=== PATIENT | female | born 1945 | race Caucasian/White ===

== ENCOUNTER → 2018-06-10 09:11 | Outpatient (CLI) | payer MEDICARE, SELFPAY ==
--- NOTE | 2018-06-10 | DI.MG.S_ITS ---
BILATERAL DIGITAL SCREENING MAMMOGRAM 3D/2D WITH CAD: 06/10/2018 CLINICAL: Routine screening. Family history of breast cancer. Comparison is made to exams dated: 04/24/2017 mammogram, 04/19/2017 mammogram, and 04/18/2016 mammogram - [facility]. There are scattered fibroglandular elements in both breasts. Current study was also evaluated with a Computer Aided Detection (CAD) system. No significant masses, calcifications, or other findings are seen in either breast. There has been no significant interval change. IMPRESSION: NEGATIVE There is no mammographic evidence of malignancy. A 1 year screening mammogram is recommended. This exam was interpreted at Station ID: [id number]. NOTE: For mammograms, a report in lay terms will be sent to the patient. Approximately 15% of breast malignancies will not be visualized mammographically. In the management of a palpable breast mass, a negative mammogram must not discourage biopsy of a clinically suspicious lesion. Electronically Signed By: Danyel warren/barbie:06/10/2018 23:01:19 letter sent: Normal Exam ACR BI-RADS Category 1: Negative 3341F
== END ==
PROVIDERS: PCP Family Medicine; Visit Provider Family Medicine
DX: Z12.31 Encounter for screening mammogram for malignant neoplasm of breast (principal); Z80.3 Family history of malignant neoplasm of breast
CPT/HCPCS: 77063; 77067

== ENCOUNTER → 2018-07-16 06:57 | Outpatient (CLI) | payer MEDICARE, SELFPAY ==
[2018-07-16 07:37] LABS: Add Manual Diff / Slide Review NO; Eosinophils Percent Auto 2.8 % (2-4); Hematocrit 41.9 % (36-46); Hemoglobin 14.5 g/dL (12.0-16.0); Lymphocytes Percent Auto 24.5 % (25-40); Mean Corpuscular HGB Conc 34.6 % (30-36); Mean Corpuscular Hemoglobin 32.6 PG (26-34); Mean Corpuscular Volume 94.3 fL (80-100); Monocytes Percent Auto 7.7 % (3-14); Neutrophils Absolute Auto 2700 /uL (3000-5900); Platelet Count 212 X10^3/uL (150-400); Red Blood Cell Count 4.45 X10^6/uL (4.0-5.2); Red Cell Distribution Width 13.4 % (11.6-14.8); White Blood Cell Count 4.2 X10^3/uL (4.5-11.0)
[2018-07-16 07:48] LABS: Alanine Aminotransferase 26 IU/L (9-52); Albumin 4.6 g/dL (3.5-5.0); Albumin Globulin Ratio 1.6 (1.0-2.8); Alkaline Phosphatase 43 U/L (38-126); Aspartate Aminotransferase 26 IU/L (14-36); Bilirubin Total 0.7 mg/dL (0.2-1.3); Blood Urea Nitrogen 14 mg/dL (7-17); Calcium 9.4 mg/dL (8.4-10.2); Carbon Dioxide 32 mmol/L (22-32); Chloride 106 mmol/L (98-107); Cholesterol 247 mg/dL (140-199); Estimated Glomerular Filt Rate > 60.0 mL/min (>60); Globulin 2.9 g/dL (1.7-4.1); Glucose 100 mg/dL (80-110); HDL Cholesterol 61 mg/dL (40-60); HEMOLYSIS < 15 (0-50); LDL Cholesterol Calculated 172 mg/dL (<100); Potassium 4.6 mmol/L (3.4-5.1); Sodium 147 mmol/L (137-145); Total Protein 7.5 g/dL (6.3-8.2); Triglycerides 69 mg/dL (35-150)
[2018-07-16 08:15] LABS: TSH w/ Reflex to FT4 2.78 uIU/mL (0.47-4.68)
== END ==
PROVIDERS: PCP Family Medicine; Visit Provider Family Medicine
DX: E78.00 Pure hypercholesterolemia, unspecified (principal)
CPT/HCPCS: 36415; 80053; 80061; 84443; 85025

== ENCOUNTER → 2018-07-25 09:55 | Outpatient (CLI) | payer MEDICARE, SELFPAY ==
--- NOTE | 2018-07-25 09:58 | DI.RAD.S_ITS ---
PROCEDURE: XR HAND RT MIN 3V INDICATIONS: swollen joint TECHNIQUE: 3 views of the hand(s) acquired. COMPARISON: None. FINDINGS: Bones: No fractures or dislocations. Carpal bones are normally aligned. No suspicious bony lesions. There is moderate to moderately severe degenerative osteophytic change at the distal interphalangeal joints and the middle interphalangeal joints to a lesser degree. Degenerative osteoarthritis also is prominent at the base of the first metacarpal and at the distal scaphoid as it articulates against the proximal margin of the trapezium. Soft tissues: No suspicious soft tissue calcifications. IMPRESSION: Moderately severe degenerative osteoarthritis as discussed without erosive arthritis or trauma. Dictated by: Brian Wheeler M.D. on 07/25/2018 at 11:45 Approved by: Brian Wheeler M.D. on 07/25/2018 at 11:46
--- NOTE | 2018-07-25 09:58 | DI.RAD.S_ITS ---
PROCEDURE: XR HAND LT MIN 3V INDICATIONS: swollen joint TECHNIQUE: 3 views of the hand(s) acquired. COMPARISON: [facility], CR, XR HAND RT MIN 3V, 07/25/2018, 9:59. FINDINGS: Bones: No fractures or dislocations. Carpal bones are normally aligned. No suspicious bony lesions. The degenerative osteoarthritis present at the left hand is slightly less than that on the right, with only moderate interphalangeal degenerative osteoarthritis of the degeneration at the base of the first metacarpal is moderately severe. Moderate osteoarthritis also can be seen at the distal scaphoid articulation against the JARRETT of the trapezium. Soft tissues: No suspicious soft tissue calcifications. IMPRESSION: Left hand osteoarthritis is less than that seen on the right, and is moderately severe only at the base of the first metacarpal. No trauma or an erosive arthritis is found. Dictated by: Brian Wheeler M.D. on 07/25/2018 at 11:46 Approved by: Brian Wheeler M.D. on 07/25/2018 at 11:47
== END ==
PROVIDERS: PCP Family Medicine; Visit Provider Family Medicine
DX: M25.442 Effusion, left hand (principal); M25.441 Effusion, right hand; M19.042 Primary osteoarthritis, left hand; M19.041 Primary osteoarthritis, right hand
CPT/HCPCS: 73130

== ENCOUNTER → 2018-09-12 16:02 | Outpatient (CLI) | payer MEDICARE, SELFPAY ==
[2018-09-12 16:28] LABS: Add Manual Diff / Slide Review NO; Eosinophils Percent Auto 2.1 % (2-4); Hematocrit 40.4 % (36-46); Hemoglobin 13.8 g/dL (12.0-16.0); Lymphocytes Percent Auto 25.4 % (25-40); Mean Corpuscular HGB Conc 34.2 % (30-36); Mean Corpuscular Volume 93.5 fL (80-100); Monocytes Percent Auto 8.6 % (3-14); Neutrophils Absolute Auto 4000 /uL (1500-7000); Neutrophils Percent Auto 62.9 % (50-75); Platelet Count 247 X10^3/uL (150-400); Red Blood Cell Count 4.32 X10^6/uL (4.0-5.2); Red Cell Distribution Width 12.9 % (11.6-14.8); White Blood Cell Count 6.3 X10^3/uL (4.5-11.0)
== END ==
PROVIDERS: PCP Family Medicine; Visit Provider Family Medicine
DX: D72.819 Decreased white blood cell count, unspecified (principal)
CPT/HCPCS: 36415; 85025

== ENCOUNTER → 2019-05-01 11:42 | Outpatient (CLI) | payer MEDICARE, SELFPAY ==
[2019-05-01 12:11] LABS: Add Manual Diff / Slide Review NO; Basophils Absolute Auto 0 /uL (0-100); Basophils Percent Auto 0.8 % (0-2); Eosinophils Absolute Auto 100 /uL (0-450); Eosinophils Percent Auto 1.6 % (2-4); Hematocrit 40.6 % (36-46); Hemoglobin 13.8 g/dL (12.0-16.0); Lymphocytes Absolute Auto 1100 /uL (1100-4500); Lymphocytes Percent Auto 18.8 % (25-40); Mean Corpuscular HGB Conc 34.1 % (30-36); Mean Corpuscular Hemoglobin 31.6 PG (26-34); Mean Corpuscular Volume 92.8 fL (80-100); Monocytes Absolute Auto 400 /uL (0-900); Monocytes Percent Auto 7.5 % (3-14); Neutrophils Absolute Auto 4000 /uL (1500-7000); Neutrophils Percent Auto 71.3 % (50-75); Platelet Count 219 X10^3/uL (150-400); Red Blood Cell Count 4.38 X10^6/uL (4.0-5.2); Red Cell Distribution Width 13.8 % (11.6-14.8); White Blood Cell Count 5.6 X10^3/uL (4.5-11.0)
[2019-05-01 12:51] LABS: Alanine Aminotransferase 15 IU/L (9-52); Albumin 4.4 g/dL (3.5-5.0); Albumin Globulin Ratio 1.6 (1.0-2.8); Alkaline Phosphatase 60 U/L (38-126); Aspartate Aminotransferase 23 IU/L (14-36); Bilirubin Total 0.5 mg/dL (0.2-1.3); Blood Urea Nitrogen 12 mg/dL (7-17); Calcium 9.7 mg/dL (8.4-10.2); Carbon Dioxide 29 mmol/L (22-32); Chloride 103 mmol/L (98-107); Estimated Glomerular Filt Rate > 60.0 mL/min (>60); Globulin 2.7 g/dL (1.7-4.1); Glucose 73 mg/dL (80-110); HEMOLYSIS < 15 (0-50); Potassium 4.5 mmol/L (3.4-5.1); Sodium 140 mmol/L (137-145); Total Protein 7.1 g/dL (6.3-8.2)
== END ==
PROVIDERS: PCP Family Medicine; Visit Provider Physician Assistant
DX: L30.1 Dyshidrosis [pompholyx] (principal)
CPT/HCPCS: 36415; 80053; 85025

== ENCOUNTER → 2019-06-05 13:26 | Outpatient (CLI) | payer MEDICARE, SELFPAY ==
[2019-06-05 15:10] LABS: Add Manual Diff / Slide Review NO; Basophils Absolute Auto 0 /uL (0-100); Basophils Percent Auto 0.5 % (0-2); Eosinophils Absolute Auto 100 /uL (0-450); Eosinophils Percent Auto 1.8 % (2-4); Hematocrit 40.1 % (36-46); Hemoglobin 13.8 g/dL (12.0-16.0); Lymphocytes Absolute Auto 1200 /uL (1100-4500); Lymphocytes Percent Auto 19.5 % (25-40); Mean Corpuscular HGB Conc 34.5 % (30-36); Mean Corpuscular Hemoglobin 32.3 PG (26-34); Mean Corpuscular Volume 93.7 fL (80-100); Monocytes Absolute Auto 500 /uL (0-900); Monocytes Percent Auto 7.6 % (3-14); Neutrophils Absolute Auto 4200 /uL (1500-7000); Neutrophils Percent Auto 70.6 % (50-75); Platelet Count 241 X10^3/uL (150-400); Red Blood Cell Count 4.28 X10^6/uL (4.0-5.2); Red Cell Distribution Width 13.9 % (11.6-14.8); White Blood Cell Count 5.9 X10^3/uL (4.5-11.0)
[2019-06-05 15:34] LABS: Alanine Aminotransferase 21 IU/L (9-52); Albumin 4.3 g/dL (3.5-5.0); Albumin Globulin Ratio 1.5 (1.0-2.8); Alkaline Phosphatase 57 U/L (38-126); Aspartate Aminotransferase 28 IU/L (14-36); BUN Creatinine Ratio 31.7 (6-22); Bilirubin Total 0.5 mg/dL (0.2-1.3); Blood Urea Nitrogen 19 mg/dL (7-17); Calcium 9.1 mg/dL (8.4-10.2); Carbon Dioxide 29 mmol/L (22-32); Chloride 102 mmol/L (98-107); Estimated Glomerular Filt Rate > 60.0 mL/min (>60); Globulin 2.9 g/dL (1.7-4.1); Glucose 92 mg/dL (80-110); HEMOLYSIS < 15 (0-50); Potassium 4.4 mmol/L (3.4-5.1); Sodium 140 mmol/L (137-145); Total Protein 7.2 g/dL (6.3-8.2)
== END ==
PROVIDERS: PCP Family Medicine; Visit Provider Physician Assistant
DX: L30.1 Dyshidrosis [pompholyx] (principal)
CPT/HCPCS: 36415; 80053; 85025

== ENCOUNTER → 2019-06-18 09:11 | Outpatient (CLI) | payer MEDICARE, SELFPAY ==
--- NOTE | 2019-06-18 | DI.MG.S_ITS ---
BILATERAL DIGITAL SCREENING MAMMOGRAM 3D/2D WITH CAD: 06/18/2019 CLINICAL: Routine screening. Family history of breast cancer. Comparison is made to exams dated: 06/10/2018 mammogram, 04/24/2017 mammogram, 04/19/2017 mammogram, and 04/18/2016 mammogram - [facility]. There are scattered fibroglandular elements in both breasts. Current study was also evaluated with a Computer Aided Detection (CAD) system. No significant masses, calcifications, or other findings are seen in either breast. There has been no significant interval change. IMPRESSION: NEGATIVE There is no mammographic evidence of malignancy. A 1 year screening mammogram is recommended. This exam was interpreted at Station ID: [id number]. NOTE: For mammograms, a report in lay terms will be sent to the patient. Approximately 15% of breast malignancies will not be visualized mammographically. In the management of a palpable breast mass, a negative mammogram must not discourage biopsy of a clinically suspicious lesion. Electronically Signed By: Karen solorio/barbie:06/18/2019 10:00:50 letter sent: Normal Exam ACR BI-RADS Category 1: Negative 3341F
== END ==
PROVIDERS: PCP Family Medicine; Visit Provider Family Medicine
DX: Z12.31 Encounter for screening mammogram for malignant neoplasm of breast (principal); Z80.3 Family history of malignant neoplasm of breast
CPT/HCPCS: 77063; 77067

== ENCOUNTER → 2019-09-04 09:23 | Outpatient (CLI) | payer MEDICARE, SELFPAY ==
[2019-09-04 10:42] LABS: Add Manual Diff / Slide Review NO; Basophils Absolute Auto 0 /uL (0-100); Basophils Percent Auto 0.9 % (0-2); Eosinophils Absolute Auto 200 /uL (0-450); Eosinophils Percent Auto 3.8 % (2-4); Hematocrit 40.1 % (36-46); Hemoglobin 13.8 g/dL (12.0-16.0); Lymphocytes Absolute Auto 900 /uL (1100-4500); Lymphocytes Percent Auto 22.6 % (25-40); Mean Corpuscular HGB Conc 34.4 % (30-36); Mean Corpuscular Hemoglobin 32.9 PG (26-34); Mean Corpuscular Volume 95.7 fL (80-100); Monocytes Absolute Auto 400 /uL (0-900); Monocytes Percent Auto 9.4 % (3-14); Neutrophils Absolute Auto 2600 /uL (1500-7000); Neutrophils Percent Auto 63.3 % (50-75); Platelet Count 225 X10^3/uL (150-400); Red Blood Cell Count 4.19 X10^6/uL (4.0-5.2); Red Cell Distribution Width 14.5 % (11.6-14.8)
[2019-09-04 11:04] LABS: Alanine Aminotransferase 34 IU/L (<35); Albumin 4.2 g/dL (3.5-5.0); Albumin Globulin Ratio 1.6 (1.0-2.8); Alkaline Phosphatase 53 U/L (38-126); Aspartate Aminotransferase 38 IU/L (14-36); BUN Creatinine Ratio 25.7 (6-22); Bilirubin Total 0.7 mg/dL (0.2-1.3); Blood Urea Nitrogen 18 mg/dL (7-17); Calcium 8.8 mg/dL (8.4-10.2); Carbon Dioxide 29 mmol/L (22-32); Chloride 105 mmol/L (98-107); Estimated Glomerular Filt Rate > 60.0 mL/min (>60); Globulin 2.7 g/dL (1.7-4.1); Glucose 92 mg/dL (80-110); HEMOLYSIS < 15 (0-50); Potassium 4.2 mmol/L (3.4-5.1); Sodium 140 mmol/L (137-145); Total Protein 6.9 g/dL (6.3-8.2)
== END ==
PROVIDERS: PCP Family Medicine; Visit Provider Physician Assistant
DX: L30.1 Dyshidrosis [pompholyx] (principal)
CPT/HCPCS: 36415; 80053; 85025

== ENCOUNTER → 2020-05-21 08:14 | Outpatient (CLI) | payer MEDICARE, SELFPAY ==
[2020-05-22 09:14] LABS: COVID19 Sendout Not Detected (Not Detect)
== END ==
PROVIDERS: PCP Family Medicine; Visit Provider Physician Assistant
DX: Z11.59 Encounter for screening for other viral diseases (principal)
CPT/HCPCS: 87635

== ENCOUNTER → 2020-06-21 11:51 | Outpatient (CLI) | payer MEDICARE, SELFPAY ==
--- NOTE | 2020-06-21 | DI.MG.S_ITS ---
BILATERAL DIGITAL SCREENING MAMMOGRAM 3D/2D WITH CAD: 06/21/2020 CLINICAL: Routine screening. Family history of breast cancer. Comparison is made to exams dated: 06/18/2019 mammogram, 06/10/2018 mammogram, 04/24/2017 mammogram, 04/19/2017 mammogram, and 04/18/2016 mammogram - [facility]. There are scattered fibroglandular elements in both breasts. Current study was also evaluated with a Computer Aided Detection (CAD) system. No significant masses, calcifications, or other findings are seen in either breast. There has been no significant interval change. IMPRESSION: NEGATIVE There is no mammographic evidence of malignancy. A 1 year screening mammogram is recommended. This exam was interpreted at Station ID: [id number]. NOTE: For mammograms, a report in lay terms will be sent to the patient. Approximately 15% of breast malignancies will not be visualized mammographically. In the management of a palpable breast mass, a negative mammogram must not discourage biopsy of a clinically suspicious lesion. Electronically Signed By: Tarun hart/barbie:06/21/2020 13:05:20 letter sent: Normal Exam ACR BI-RADS Category 1: Negative 3341F
== END ==
PROVIDERS: PCP Family Medicine; Referring Provider Family Medicine; Visit Provider Family Medicine
DX: Z12.31 Encounter for screening mammogram for malignant neoplasm of breast (principal); Z80.3 Family history of malignant neoplasm of breast
CPT/HCPCS: 77063; 77067

== ENCOUNTER → 2020-08-02 07:14 | Outpatient (CLI) | payer MEDICARE, SELFPAY ==
[2020-08-02 09:04] LABS: Alanine Aminotransferase 16 IU/L (<35); Albumin 4.1 g/dL (3.5-5.0); Albumin Globulin Ratio 1.4 (1.0-2.8); Alkaline Phosphatase 54 U/L (38-126); Aspartate Aminotransferase 28 IU/L (14-36); Bilirubin Total 0.8 mg/dL (0.2-1.3); Blood Urea Nitrogen 19 mg/dL (7-17); Carbon Dioxide 31 mmol/L (22-32); Chloride 103 mmol/L (98-107); Cholesterol 202 mg/dL (140-199); Estimated Glomerular Filt Rate > 60.0 mL/min (>60); Globulin 2.9 g/dL (1.7-4.1); Glucose 102 mg/dL (80-110); HDL Cholesterol 58 mg/dL (40-60); HEMOLYSIS < 15 (0-50); LDL Cholesterol Calculated 131 mg/dL (<100); Sodium 138 mmol/L (137-145); Triglycerides 63 mg/dL (35-150)
== END ==
PROVIDERS: PCP Family Medicine; Referring Provider Family Medicine; Visit Provider Family Medicine
DX: E78.00 Pure hypercholesterolemia, unspecified (principal)
CPT/HCPCS: 36415; 80053; 80061

== ENCOUNTER → 2020-10-07 13:07 | Outpatient (CLI) | payer MEDICARE, SELFPAY ==
[2020-10-07 14:39] LABS: COVID19 -Nasal RAPID Negative (Negative)
== END ==
PROVIDERS: PCP Family Medicine; Visit Provider Surgery
DX: Z20.822 Contact with and (suspected) exposure to COVID-19 (principal)
CPT/HCPCS: 87635; C9803

== ENCOUNTER 2020-10-10 09:00 | Day surgery (SDC) | payer MEDICARE, SELFPAY ==
[2020-10-10 09:44] VITALS: BP 131/86; PULSE 78; RESP 16; TEMP 36.8; O2SAT 98; BMI 29.0
[2020-10-10] MEDS: LACTATED RINGERS 1,000 ML 200 ML IV (09:54)
--- NOTE | 2020-10-10 11:11 | PM.HP.1 ---
History of Present Illness History of Present Illness Date Patient Seen: 10/10/20 Time Patient Seen: 11:11 Chief complaint: SCREENING COLONOSCOPY Narrative: The patient presents for colorectal sreening. She had previous colonoscopy 6 years ago that demonstrated 2 benign polyps which were removed.. No personal or family history of colon cancer. On further history denies any recent gastrointestinal symptoms. No nausea, vomiting, abdominal pain, loss of appetite, unexplained weight loss, change in bowel habits, diarrhea, constipation, melena, hematochezia, or bright red blood per rectum. Patient History Medical History Ankle pain (~1999) Carpal tunnel syndrome (~2013) Chicken pox (~1950) Colon polyps (~2014) Depression (~1998) Eczema (~2007) Endometriosis Hearing deficit Heel spur (~1984) Hemorrhoid (~1964) History of pre-eclampsia Osteoarthritis (~1989) Vision disorder Surgical History Anesthesia History of arthroplasty History of carpal tunnel repair (~2013) History of cataract removal with insertion of prosthetic lens (~2014) Small bowel obstruction (~1979) Status post hysterectomy (~1979) Status post LASIK surgery (~1989) Status post tonsillectomy and adenoidectomy (~1967) Family & Social History Family History Child Age: 50 Diabetes mellitus Hypertension Obesity Father Cancer High cholesterol Hypertension Alcoholism Mother Cancer Sister Age: 63 Diabetes mellitus Obesity Hypertension Social History: household members spouse Tobacco & Substance use: Smoking Status Never smoker alcohol intake never Substance Use Type does not use Meds Home Medications and Allergies Home Medications Medication Instructions Recorded Confirmed Type GLUCOSAMINE/CHONDROITIN SULF A 1 cap PO Q DAY #0 07/06/16 10/10/20 History cholecalciferol (vitamin D3) 10 1,200 unit PO DAILY cap 07/25/18 10/10/20 History mcg (400 unit) capsule acyclovir 800 mg PO TID 10/10/20 10/10/20 History Allergies Allergy/AdvReac Type Severity Reaction Status Date / Time zolpidem [From Ambien] AdvReac nightmares Verified 10/10/20 09:37 Review of Systems Review of Systems Narrative: A 10 point review of systems is negative except as noted in the HPI Exam Vital Signs (past 8 hours): - 10/10/20 09:44 Temperature 98.2 F Pulse Rate 78 Respiratory Rate 16 Blood Pressure 131/86 Pulse Oximetry 98 Oxygen Delivery Method Room Air Narrative Exam Narrative: General-no acute distress, well nourished elderly female HEENT-moist mucous membranes, no scleral icterus Neck-supple, no lymphadenopathy Chest- non labored respirations, clear to auscultation bilaterally Cardiac-regular rate no peripheral edema Abdomen-soft, nontender, non distended Extremities-warm, well perfused Neurological-alert and oriented, no focal deficits Assessment & Plan Assessment & Plan narrative: The patient requires colorectal screening and colonoscopy is recommended. Technical details were discussed. Risks, benefits, alternatives explained. Risks including but not limited to myocardial infarction, aspiration, bleeding, pain, missed lesion, incomplete examination, need for further radiographic studies, colonic perforation, and need for major abdominal surgery were discussed. All questions were answered to their satisfaction, and they are in agreement with this plan.
[2020-10-10] MEDS: MIDAZOLAM 5 MG/5 ML VIAL IV (11:43)
[2020-10-10] MEDS: fentaNYL 250 MCG/5 ML INJ IV (11:44)
--- NOTE | 2020-10-10 11:57 | PM.OP.ENDO ---
Operative Date/Time/Diagnoses Date of procedure: 10/10/20 Time of procedure: 11:57 Pre-op diagnosis: personal history of colonic polyps Post-op diagnosis: same Procedure & Clinicians Study performed: colonoscopy Same procedure as scheduled: Yes Indications: 75 F personal history of colonic polyps Surgeon: Sunday Bullock Procedure Notes Procedure in detail: Medications: Conscious sedation using 6mg IV midazolam and 350mcg IV of fentanyl The history and physical was performed/updated and the patient is ASA class is 2. The procedure was discussed in detail with the patient. Potential risks complications including infection, bleeding, missed diagnosis, perforation, need for surgery, and were explained. Their questions were answered and informed consent was obtained. Patient was brought to the procedure room and placed standard monitoring equipment. The patient's vital signs were monitored continuously throughout the entire procedure. Prior to starting time-out was performed. The patient was placed in the left lateral recumbent position. Procedural sedation was administered. Examination began with a thorough inspection of the perianal area there was no evidence of fissures, fistulae, external hemorrhoids or cutaneous malignancy. The colonoscopy scope was then placed into the anal canal and was advanced to the cecum, which was identified by the ileocecal valve, the appendiceal orifice and the confluence of the taenia. The scope was then slowly withdrawn examining colon thoroughly in all directions, irrigating it of any residual stool. No masses or polyps The patient tolerated the procedure well. They will be discharged once criteria are met. The prep was of good/excellent quality. The withdrawl time was 6 minutes. The sedation time was 39 minutes. Specimen(s): none sent Complications: none Impression: Normal colonoscopy Post-procedure Disposition: same day surgery
[2020-10-10 12:00] VITALS: BP 132/68; PULSE 74; RESP 11; TEMP 36.6; O2SAT 95
[2020-10-10 12:05] VITALS: BP 128/66; PULSE 74; RESP 17; O2SAT 97
[2020-10-10 12:10] VITALS: BP 112/62; PULSE 90; RESP 15; O2SAT 97
[2020-10-10 12:15] VITALS: BP 130/81; PULSE 78; RESP 17; TEMP 36.6; O2SAT 96
[2020-10-10 12:40] VITALS: BP 134/75; PULSE 70; RESP 17; TEMP 36.7; O2SAT 96
== END 2020-10-10 12:50 | disposition home or self-care (01) ==
PROVIDERS: PCP Family Medicine; Referring Provider Surgery; Visit Provider Surgery
PROC: 0DJD8ZZ Inspection of Lower Intestinal Tract, Via Natural or Artificial Opening Endoscopic (ICD-10-PCS; CPT 45378; principal; 2020-10-10 10:00)
DX: Z12.11 Encounter for screening for malignant neoplasm of colon (principal); Z86.010 Personal history of colon polyps
CPT/HCPCS: G0105; 99152; 99153; J2250; J3010

== ENCOUNTER → 2021-02-21 07:05 | Outpatient (CLI) | payer MEDICARE, SELFPAY ==
[2021-02-21 08:30] LABS: Alanine Aminotransferase 16 IU/L (<35); Albumin 3.8 g/dL (3.5-5.0); Albumin Globulin Ratio 1.5 (1.0-2.8); Alkaline Phosphatase 56 U/L (38-126); Aspartate Aminotransferase 24 IU/L (14-36); BUN Creatinine Ratio 16.7 (6-22); Bilirubin Total 0.6 mg/dL (0.2-1.3); Blood Urea Nitrogen 11 mg/dL (7-17); Calcium 9.1 mg/dL (8.4-10.2); Carbon Dioxide 28 mmol/L (22-32); Chloride 106 mmol/L (98-107); Cholesterol 193 mg/dL (140-199); Estimated Glomerular Filt Rate > 60.0 mL/min (>60); Globulin 2.5 g/dL (1.7-4.1); Glucose 93 mg/dL (80-110); HDL Cholesterol 63 mg/dL (40-60); HEMOLYSIS < 15 (0-50); LDL Cholesterol Calculated 120 mg/dL (<100); Potassium 4.6 mmol/L (3.4-5.1); Sodium 140 mmol/L (137-145); Total Protein 6.3 g/dL (6.3-8.2); Triglycerides 51 mg/dL (35-150)
== END ==
PROVIDERS: PCP Family Medicine; Referring Provider Family Medicine; Visit Provider Family Medicine
DX: E66.3 Overweight (principal); E78.00 Pure hypercholesterolemia, unspecified; R73.01 Impaired fasting glucose
CPT/HCPCS: 36415; 80053; 80061

== ENCOUNTER → 2021-07-08 11:20 | Outpatient (CLI) | payer MEDICARE, SELFPAY ==
--- NOTE | 2021-07-08 | DI.MG.S_ITS ---
BILATERAL DIGITAL SCREENING MAMMOGRAM 3D/2D WITH CAD: 07/08/2021 CLINICAL: Routine screening. Family history of breast cancer. Comparison is made to exams dated: 06/21/2020 mammogram, 06/18/2019 mammogram, and 06/10/2018 mammogram - [facility]. There are scattered fibroglandular elements in both breasts. Current study was also evaluated with a Computer Aided Detection (CAD) system. No significant masses, calcifications, or other findings are seen in either breast. There has been no significant interval change. IMPRESSION: NEGATIVE There is no mammographic evidence of malignancy. A 1 year screening mammogram is recommended. This exam was interpreted at Station ID: [id number]. NOTE: For mammograms, a report in lay terms will be sent to the patient. Approximately 15% of breast malignancies will not be visualized mammographically. In the management of a palpable breast mass, a negative mammogram must not discourage biopsy of a clinically suspicious lesion. Electronically Signed By: Jacek Zacarias M.D., jr/barbie:07/10/2021 08:11:41 letter sent: Normal Exam ACR BI-RADS Category 1: Negative 3341F
== END ==
PROVIDERS: PCP Family Medicine; Referring Provider Family Medicine; Visit Provider Family Medicine
DX: Z12.31 Encounter for screening mammogram for malignant neoplasm of breast (principal); Z80.3 Family history of malignant neoplasm of breast
CPT/HCPCS: 77063; 77067

== ENCOUNTER → 2021-10-18 11:35 | Outpatient (CLI) | payer MEDICARE, SELFPAY ==
[2021-10-18 13:09] LABS: Add Manual Diff / Slide Review NO; Basophils Absolute Auto 0 /uL (0-100); Basophils Percent Auto 0.6 % (0-2); Eosinophils Absolute Auto 100 /uL (0-450); Eosinophils Percent Auto 0.8 % (2-4); Hematocrit 39.6 % (36-46); Hemoglobin 13.6 g/dL (12.0-16.0); Lymphocytes Absolute Auto 900 /uL (1100-4500); Lymphocytes Percent Auto 13.5 % (25-40); Mean Corpuscular HGB Conc 34.4 % (30-36); Mean Corpuscular Hemoglobin 32.2 PG (26-34); Mean Corpuscular Volume 93.6 fL (80-100); Monocytes Absolute Auto 300 /uL (0-900); Monocytes Percent Auto 5.2 % (3-14); Neutrophils Absolute Auto 5300 /uL (1500-7000); Neutrophils Percent Auto 79.9 % (50-75); Platelet Count 221 X10^3/uL (150-400); Red Blood Cell Count 4.22 X10^6/uL (4.0-5.2); Red Cell Distribution Width 13.1 % (11.6-14.8); White Blood Cell Count 6.7 X10^3/uL (4.5-11.0)
[2021-10-18 14:02] LABS: TSH w/ Reflex to FT4 0.68 uIU/mL (0.47-4.68)
[2021-10-18 14:19] LABS: Vitamin B12 736 pg/mL (239-931)
[2021-10-19 04:02] LABS: Homocysteine 9.6 umol/L (0.0-19.2)
[2021-10-19 05:02] LABS: RPR Screen Non Reactive (Non Reactive)
[2021-10-20 10:13] LABS: Methylmalonic Acid,Serum 135 nmol/L (0-378)
== END ==
PROVIDERS: PCP Family Medicine; Referring Provider Family Medicine; Visit Provider Family Medicine
DX: G62.9 Polyneuropathy, unspecified (principal); R53.83 Other fatigue
CPT/HCPCS: 36415; 82607; 83090; 83921; 84443; 85025; 86592

== ENCOUNTER → 2021-11-08 11:04 | Outpatient (CLI) | payer MEDICARE, SELFPAY ==
--- NOTE | 2021-11-08 11:05 | DI.MRI.S_ITS ---
PROCEDURE: MR HEAD/BRAIN WO/W CON INDICATIONS: neuropathy/ataxia TECHNIQUE: Noncontrast axial T1 spin echo, axial T2 fast spin echo, sagittal and axial FLAIR, coronal T2 fast spin echo, axial gradient echo, axial diffusion and ADC through the brain. After the administration of contrast, axial and coronal T1 spin echo with fat saturation through the brain. COMPARISON: None. FINDINGS: Image quality: Excellent. CSF spaces: Basal cisterns are patent. No extra-axial fluid collections. Ventricles are normal in size and shape. Brain: No midline shift. No intracranial bleeds or masses. No abnormal intracranial enhancement. There is cerebral volume loss for age. There is periventricular white matter chronic small vessel ischemic change. The brainstem appears normal. Diffusion-weighted images demonstrate no acute ischemic insults. No chronic ischemic insults. Normal intravascular flow voids are present. Skull and face: Calvarial marrow is normal in signal. Orbits appear normal. Note is made of bilateral lens replacements. Sinuses: Sinuses and mastoids appear clear. IMPRESSION: Unremarkable intracranial study for age, with age-appropriate brain parenchymal volume loss and chronic small vessel ischemic change. No findings of acute or subacute infarction can be seen. No masses or abnormal enhancement can be seen. Dictated by: Venkatesh Kendall M.D. on 11/08/2021 at 11:19 Approved by: Venkatesh Kendall M.D. on 11/08/2021 at 11:20
== END ==
PROVIDERS: PCP Family Medicine; Referring Provider Family Medicine; Visit Provider Family Medicine
DX: R27.0 Ataxia, unspecified (principal); G62.9 Polyneuropathy, unspecified
CPT/HCPCS: 70553; A9579

== ENCOUNTER → 2021-12-19 09:53 | Outpatient (CLI) | payer MEDICARE, SELFPAY ==
[2021-12-19 11:47] LABS: COVID19 -Nasal RAPID Negative (Negative)
== END ==
PROVIDERS: PCP Family Medicine; Visit Provider Family Medicine Sleep Medicine
DX: Z20.822 Contact with and (suspected) exposure to COVID-19 (principal)
CPT/HCPCS: 87635; C9803

== ENCOUNTER → 2022-05-17 13:45 | Outpatient (CLI) | payer MEDICARE, SELFPAY ==
[2022-05-17 14:42] LABS: COVID19 -Nasal RAPID Negative (Negative)
--- NOTE | 2022-05-17 19:00 | DI.NM.S_ITS ---
DATE OF SERVICE: 05/17/2022 PROCEDURE PERFORMED: Exercise treadmill stress test without imaging. ORDERING PROVIDER: Dr. Stalin Mccarthy. INDICATIONS: The patient is a 76-year-old female with fatigue, dizziness, and exercise-induced palpitations. FINDINGS: 1. The patient was able to exercise for 4 minutes, 32 seconds on a standard Ric protocol, suggesting mild to moderately reduced exercise capacity with an ROSA M of +14%, achieving 7.0 METs. 2. She had a normal heart rate and blood pressure response to exercise, achieving a maximum heart rate of 150 BPM (103% of her predicted maximum), although motion artifact makes definitive assessment of the heart rate challenging. 3. There was no significant chest discomfort or other anginal symptoms. 4. The resting ECG shows sinus rhythm with normal ST segments. There are no obvious ST-segment shifts or significant arrhythmias with stress although motion artifact makes assessment difficult. She had frequent PACs, briefly in short runs up to four beats and possible isolated PVCs with stress that resolved in recover except for continued rare isolated PACs and PVCs. IMPRESSION: 1. Probable normal exercise treadmill stress test for ischemia, although considerable motion artifact reduces the sensitivity. 2. Mild to moderately reduced exercise capacity without angina with frequent PACs, briefly in short runs up to four beats, and isolated PVCs, but no other complex ectopy. Amisha Lama - VICENTE/julissa/estephania doc#: [id number]/job#: [id number] dd: 05/17/2022 17:22:00 dt: 05/17/2022 18:20:00 DICTATING /COPIES TO: Issac Cullen MD COPIES MNE: TORITO;
== END ==
PROVIDERS: PCP Family Medicine; Referring Provider Family Medicine; Visit Provider Family Medicine
DX: R00.2 Palpitations (principal); R42 Dizziness and giddiness; R53.83 Other fatigue; Z20.822 Contact with and (suspected) exposure to COVID-19
CPT/HCPCS: 87635; 93017

== ENCOUNTER → 2022-08-13 11:08 | Outpatient (CLI) | payer MEDICARE, SELFPAY ==
--- NOTE | 2022-08-13 | DI.MG.S_ITS ---
BILATERAL DIGITAL SCREENING MAMMOGRAM 3D/2D WITH CAD: 08/13/2022 CLINICAL: Routine screening. Family history of breast cancer. Comparison is made to exams dated: 07/08/2021 mammogram, 06/21/2020 mammogram, and 06/18/2019 mammogram - [facility]. There are scattered areas of fibroglandular density in both breasts (category b / 25%-50% glandular tissue). Current study was also evaluated with a Computer Aided Detection (CAD) system. No significant masses, calcifications, or other findings are seen in either breast. There has been no significant interval change. IMPRESSION: NEGATIVE There is no mammographic evidence of malignancy. A 1 year screening mammogram is recommended. Based on the Tyrer Cuzick model (a risk assessment model) the patient's lifetime risk is 3.8% and her 10 year risk is 3.8%. According to the ACR, ACS, and NCCN guidelines, an annual breast MRI exam along with mammogram is recommended if the patient's lifetime risk is 20% or greater. This exam was interpreted at Station ID: [id number]. NOTE: For mammograms, a report in lay terms will be sent to the patient. Approximately 15% of breast malignancies will not be visualized mammographically. In the management of a palpable breast mass, a negative mammogram must not discourage biopsy of a clinically suspicious lesion. Electronically Signed By: Tarun hart/barbie:08/13/2022 12:40:17 letter sent: Normal Exam ACR BI-RADS Category 1: Negative 3341F
== END ==
PROVIDERS: PCP Family Medicine; Referring Provider Family Medicine; Visit Provider Family Medicine
DX: Z12.31 Encounter for screening mammogram for malignant neoplasm of breast (principal); Z80.3 Family history of malignant neoplasm of breast
CPT/HCPCS: 77063; 77067

== ENCOUNTER → 2022-12-25 12:37 | Outpatient (CLI) | payer MEDICARE, SELFPAY ==
--- NOTE | 2022-12-25 12:57 | DI.DEXA.S_ITS ---
Bone Density Report Name: ROMULO ROBERTSON Age: 77 Sex: Female Ethnicity: White Date of : 1945 Indication: postmenopausal; screening for osteoporosis; Referring Provider: DAYNE JUAREZ Study: Bone densitometry was performed. Exam Date: December 25, 2022 Accession number: [id number] Bone Density: Region BMD T-score Z-score Classification AP Spine(L1, L2, L3) 1.004 -0.1 2.3 Normal Femoral Neck (Left) 0.713 -1.2 0.9 Osteopenia Total Hip (Left) 0.926 -0.1 1.7 Normal Total Forearm (Left) 0.576 -0.1 2.5 Normal 1/3 Forearm (Left) 0.643 -0.9 1.8 Normal UD Forearm (Left) 0.450 0.1 2.1 Normal World Health Organization criteria for BMD impression classify patients as: Normal (T-score at or above -1.0), Osteopenia (T-score between -1.0 and -2.5), or Osteoporosis (T-score at or below -2.5). 10-year Fracture Risk(1): Major Osteoporotic Fracture 11% Hip Fracture 1.9% Reported Risk Factors: [place] (), Neck BMD=0.713, BMI=30.0 (1) FRAX(R) Version 3.08. Fracture probability calculated for an untreated patient. Fracture probability may be lower if the patient has received treatment. Previous Exams: -- Region Exam Age BMD T-score BMD Change BMD Change Date g/cm2 vs Baseline vs Previous -- AP Spine (L1-L3) 12/25/2022 77 1.004 -0.1 -0.019 (-1.8%)# -0.019 (-1.8%)# 07/18/2016 70 1.022 0.0 Total Hip(Left) 12/25/2022 77 0.926 -0.1 -0.034 (-3.5%)# -0.034 (-3.5%)# 07/18/2016 70 0.960 0.1 -- *Denotes significance at 95% confidence level, LSC for AP Spine = 0.022 g/cm2, LSC for Total Hip = 0.027 g/cm2 # Denotes dissimilar scan types or analysis methods Impression: The patient has low bone mass, based on the Left Femoral Neck T-score. The patient has an estimated ten-year risk of hip fracture of 1.9% and an estimated ten-year risk of major fracture of 11%, based on the WHO FRAX algorithm. No significant bone loss was observed. Discussion: BONE DENSITY IS LOW AT ONE OR MORE SKELETAL SITES. This patient's lowest T-score is low at one or more skeletal sites. It meets the World Health Organization's (WHO) criteria for ?low bone mass? (T-score between -1.0 and -2.5). The patient's 10-year risk of fracture as calculated by FRAX is less than the threshold where pharmacological therapy is recommended by the National Osteoporosis Foundation (NOF). However, all treatment decisions require clinical judgment and consideration of individual patient factors, including patient preferences, comorbidities, previous drug use, risk factors not captured in the FRAX model (e.g., frailty, falls, vitamin D deficiency, increased bone turnover, interval significant decline in bone density) and possible under or overestimation of fracture risk by FRAX. The patient should follow a healthful lifestyle (good nutrition with adequate calcium and vitamin D, and appropriate weight-bearing exercise). Follow-Up: Consider repeating this study in 2 to 3 years to reassess this patient's status, or sooner if there is some new clinical indication. Reported by: SHAHEED HOWARD M.D. on 12/25/2022 1:07:00 PM.
== END ==
PROVIDERS: PCP Family Medicine; Referring Provider Family Medicine; Visit Provider Family Medicine
DX: Z78.0 Asymptomatic menopausal state (principal); Z13.820 Encounter for screening for osteoporosis; M85.852 Other specified disorders of bone density and structure, left thigh; Z90.710 Acquired absence of both cervix and uterus
CPT/HCPCS: 77080

== ENCOUNTER → 2023-01-30 15:15 | Outpatient (CLI) | payer MEDICARE, SELFPAY ==
--- NOTE | 2023-01-30 15:18 | DI.NM.S_ITS ---
PROCEDURE: NM EXERCISE TREADMILL NON NUC COMPARISON: None. INDICATIONS: Other forms of dyspnea FINDINGS: The patient exercised for 7 minutes and 6 seconds on stage 1 due to safety concerns. 93% of maximum predicted heart rate achieved. Appropriate BP response to exercise (resting BP 132/82mmHg, max BP 160/83mmHg). 4.6METs, ROSA M +40%. No ST changes, no ectopy, and no angina during the study. IMPRESSION: Severely reduced exercise tolerance (4.6METs) with no angina. Dictated by: Samira Hines MD on 01/31/2023 at 17:10 Approved by: Samira Hines MD on 01/31/2023 at 17:12
== END ==
PROVIDERS: PCP Family Medicine; Referring Provider Family Medicine; Visit Provider Family Medicine
DX: R06.09 Other forms of dyspnea (principal)
CPT/HCPCS: 93017

== ENCOUNTER → 2023-03-18 15:21 | Outpatient (CLI) | payer MEDICARE, SELFPAY ==
--- NOTE | 2023-03-18 | DI.RAD.S_ITS ---
PROCEDURE: XR CHEST 2V INDICATIONS: SHORTNESS OF BREATH TECHNIQUE: 2 views of the chest were acquired. COMPARISON: None. FINDINGS: Surgical changes and devices: None. Lungs and pleura: Lungs are clear. No pleural effusions or pneumothorax. Mediastinum: Mediastinal contours are normal. Heart size is normal. Bones and chest wall: No suspicious bony abnormalities. Soft tissues appear unremarkable. IMPRESSION: No acute cardiopulmonary pathology. Dictated by: Santosh Kapoor M.D. on 03/18/2023 at 17:26 Approved by: Santosh Kapoor M.D. on 03/18/2023 at 17:26
== END ==
PROVIDERS: PCP Family Medicine; Referring Provider Family Medicine; Visit Provider Family Medicine
DX: R06.02 Shortness of breath (principal)
CPT/HCPCS: 71046

== ENCOUNTER → 2023-04-18 11:48 | Outpatient (CLI) | payer MEDICARE, SELFPAY ==
--- NOTE | 2023-04-26 14:41 | PM.PFT.1 ---
Pulmonary Function Test Referral & Results Date Patient Seen: 04/18/23 Results: The spirometry demonstrates an FVC of 2.28 L which is 82% of predicted. The FEV1 was measured at 1.67 L which is 81% of predicted. The FEV1/FVC ratio was 73 which is 97% of predicted. Following the administration of bronchodilator there was a 20% improvement in FEF 25-75%. Lung volumes show an SVC of 2.53 L which is 92% of predicted. The diffusing capacity was measured at 18.75 which is 77% of predicted. No hemoglobin value was provided, so no correction for potential anemia could be made, if appropriate. The maximum voluntary ventilation was reduced Interpretation: This study demonstrates mild obstructive lung disease based on reduction FEV1 although FEV1/FVC ratio is relatively preserved. There is evidence of benefit following bronchodilator particularly small airway flow based on improvement in FEF 25-75% as above. Shape a flow volume loop also does support the presence of some degree of obstructive lung disease Diffusing capacity is minimally reduced suggesting the presence of disease at the capillary alveolar level as well Clinical correlation suggested
== END ==
PROVIDERS: PCP Family Medicine; Referring Provider Family Medicine; Visit Provider Family Medicine
DX: R06.02 Shortness of breath (principal); J98.8 Other specified respiratory disorders
CPT/HCPCS: 94060; 94726; 94729

== ENCOUNTER → 2023-08-31 08:46 | Outpatient (CLI) | payer MEDICARE, SELFPAY ==
--- NOTE | 2023-08-31 | DI.MG.S_ITS ---
BILATERAL DIGITAL SCREENING MAMMOGRAM 3D/2D WITH CAD: 08/31/2023 CLINICAL: Routine screening. Family history of breast cancer. Comparison is made to exams dated: 08/13/2022 mammogram, 07/08/2021 mammogram, and 06/21/2020 mammogram - [facility]. There are scattered areas of fibroglandular density in both breasts (category b / 25%-50% glandular tissue). Current study was also evaluated with a Computer Aided Detection (CAD) system. There are benign post operative findings in the left breast. No significant masses, calcifications, or other findings are seen in either breast. There has been no significant interval change. IMPRESSION: BENIGN There is no mammographic evidence of malignancy. A 1 year screening mammogram is recommended. Based on the Tyrer Cuzick model (a risk assessment model) the patient's lifetime risk is 3.1% and her 10 year risk is 0.0%. According to the ACR, ACS, and NCCN guidelines, an annual breast MRI exam along with mammogram is recommended if the patient's lifetime risk is 20% or greater. This exam was interpreted at Station ID: [id number]. NOTE: For mammograms, a report in lay terms will be sent to the patient. Approximately 15% of breast malignancies will not be visualized mammographically. In the management of a palpable breast mass, a negative mammogram must not discourage biopsy of a clinically suspicious lesion. Electronically Signed By: Glen best/barbie:09/02/2023 12:44:54 letter sent: Normal Exam ACR BI-RADS Category 2: Benign Finding(s) 3342F
== END ==
PROVIDERS: PCP Family Medicine; Referring Provider Family Medicine; Visit Provider Family Medicine
DX: Z12.31 Encounter for screening mammogram for malignant neoplasm of breast (principal); Z80.3 Family history of malignant neoplasm of breast
CPT/HCPCS: 77063; 77067

== ENCOUNTER → 2023-11-04 12:46 | Outpatient (CLI) | payer MEDICARE, SELFPAY ==
--- NOTE | 2023-11-04 12:50 | DI.US.S_ITS ---
PROCEDURE: US ABDOMEN LIMITED INDICATIONS: ACUTE PANCREATITIS/ELEVATED LFT'S TECHNIQUE: Real-time scanning was performed of the abdominal and retroperitoneal organs, with image documentation. COMPARISON: None. FINDINGS: Liver: Liver is normal in size and homogeneous in echotexture. Slightly lobulated left hepatic lobe contour is noted. Gallbladder: Multiple nonmobile stones are seen in dependent portion of gallbladder lumen with significant through acoustic shadowing. No gross gallbladder wall thickening or pericholecystic fluid. No sonographic Zimmerman's sign. Biliary ducts: Intrahepatic bile ducts are non-dilated. Extrahepatic bile duct caliber measures 5.7 mm. Normal is 6-7 mm or less in diameter, or 10 mm or less post-cholecystectomy. Pancreas: Atrophic appearing pancreas is seen. Questionable hypoechoic area involving pancreatic body measures 7 x 7 x 4 mm in size is seen. No peripancreatic fluid collection. Miscellaneous: No free abdominal fluid. IMPRESSION: 1. Cholelithiasis without sonographic evidence of acute cholecystitis. No biliary ductal dilatation. 2. Atrophic appearing pancreas with possible small subcentimeter cyst versus IPMN involving pancreatic body as above. Correlation with MRI of abdomen can be done if clinically indicated. Dictated by: Santosh Kapoor M.D. on 11/04/2023 at 16:11 Approved by: Santosh Kapoor M.D. on 11/04/2023 at 16:13
== END ==
PROVIDERS: PCP Family Medicine; Referring Provider Family Medicine; Visit Provider Family Medicine
DX: K85.80 Other acute pancreatitis without necrosis or infection (principal); K80.20 Calculus of gallbladder without cholecystitis without obstruction; R79.89 Other specified abnormal findings of blood chemistry
CPT/HCPCS: 76705

== ENCOUNTER → 2024-09-18 08:02 | Outpatient (CLI) | payer MEDICARE, SELFPAY ==
--- NOTE | 2024-09-18 | DI.MG.S_ITS ---
BILATERAL DIGITAL SCREENING MAMMOGRAM 3D/2D WITH CAD: 09/18/2024 CLINICAL: Routine screening. Family history of breast cancer. Comparison is made to exams dated: 08/31/2023 mammogram, 08/13/2022 mammogram, and 07/08/2021 mammogram - [facility]. There are scattered areas of fibroglandular density (category b / 25%-50% glandular tissue). Current study was also evaluated with a Computer Aided Detection (CAD) system. There are benign post operative findings in both breasts. No significant masses, calcifications, or other findings are seen in either breast. There has been no significant interval change. IMPRESSION: BENIGN There is no mammographic evidence of malignancy. A 1 year screening mammogram is recommended. Based on the Tyrer Cuzick model (a risk assessment model) the patient's lifetime risk is 2.8% and her 10 year risk is 0.0%. According to the ACR, ACS, and NCCN guidelines, an annual breast MRI exam along with mammogram is recommended if the patient's lifetime risk is 20% or greater. This exam was interpreted at Station ID: [id number]. NOTE: For mammograms, a report in lay terms will be sent to the patient. Approximately 15% of breast malignancies will not be visualized mammographically. In the management of a palpable breast mass, a negative mammogram must not discourage biopsy of a clinically suspicious lesion. Electronically Signed By: Adilene Holliday M.D., Ph.D. charisma/[email or web address]:09/18/2024 12:28:29 letter sent: Normal Exam ACR BI-RADS Category 2: Benign
== END ==
PROVIDERS: PCP Family Medicine; Referring Provider Family Medicine; Visit Provider Family Medicine
DX: Z12.31 Encounter for screening mammogram for malignant neoplasm of breast (principal); Z80.3 Family history of malignant neoplasm of breast
CPT/HCPCS: 77063; 77067

== ENCOUNTER → 2024-10-27 06:44 | Outpatient (CLI) | payer MEDICARE, SELFPAY ==
--- NOTE | 2024-10-27 06:46 | DI.US.S_ITS ---
PROCEDURE: US ABDOMEN LIMITED INDICATIONS: CHRONIC LUQ PAIN TECHNIQUE: Real-time scanning was performed of the abdominal and retroperitoneal organs, with image documentation. COMPARISON: [facility], [place], US ABDOMEN LIMITED, 11/04/2023, 13:04. FINDINGS: Liver: Homogeneous echotexture. No evidence of focal mass lesion. No intra hepatic biliary ductal dilatation Gallbladder: Cholelithiasis Common Bile Duct: 5.7 mm. Pancreas: Atrophic pancreas. Normal pancreatic duct. Small nonspecific hypoechoic area in the pancreatic body measures 7 mm in diameter Spleen: Unremarkable IMPRESSION: Stable ultrasound abdomen without change from 11/04/2023. Cholelithiasis, nonspecific hypoechoic pancreatic nodule Approved by: Deepak Ballesteros M.D. on 10/27/2024 at 13:11
== END ==
PROVIDERS: PCP Family Medicine; Referring Provider Family Medicine; Visit Provider Family Medicine
DX: K86.89 Other specified diseases of pancreas (principal); K80.20 Calculus of gallbladder without cholecystitis without obstruction; R10.12 Left upper quadrant pain; G89.29 Other chronic pain
CPT/HCPCS: 76705

== ENCOUNTER 2025-02-16 13:00 | Outpatient (RCR) | payer MEDICARE, SELFPAY ==
--- NOTE | 2024-12-10 15:45 | PT.OIE ---
Current Diagnoses Unspecified abnormalities of gait and mobility (12/10/24) Past Medical History (Last Reviewed 10/03/23 @ 09:22 by Aubrey Sanchez MD) Ankle pain (~1999) Carpal tunnel syndrome (~2013) Carpal tunnel syndrome of left wrist Carpal tunnel syndrome, right Chicken pox (~1950) Colon polyps (~2014) Depression (~1998) Eczema (~2007) Endometriosis Glaucoma Hearing deficit Heel spur (~1984) Hemorrhoid (~1964) History of pre-eclampsia Impaired fasting glucose Lactose intolerance Osteoarthritis (~1989) Overweight (BMI 25.0-29.9) Vision disorder Past Surgical History (Last Reviewed 10/03/23 @ 09:22 by Aubrey Sanchez MD) Anesthesia History of arthroplasty History of carpal tunnel repair (~2013) History of cataract removal with insertion of prosthetic lens (~2014) Small bowel obstruction (~1979) Status post hysterectomy (~1979) Status post LASIK surgery (~1989) Status post tonsillectomy and adenoidectomy (~1967) Visit Care Team Role Provider Type Stalin Mccarthy MD Attending Provider Physician Primary Care Provider Referring Provider Specialty: [facility] Address: [facility] [address] [place], [place], [facility] Email: [email or web address] Physical Therapy Initial Evaluation PT-OP-A Visit Information Start: 12/09/24 15:44 Freq: Status: Active Protocol: Document 12/10/24 10:47 SAK (Rec: 12/10/24 11:35 [facility] [id number]) Out-Patient Physical Therapy Visit Information Visit Information Visit Type Initial Evaluation Visit Start Time 10:48 Visit Stop Time 11:28 Visit Number 1 Evaluation Information Evaluation Date 12/10/24 PT-OP-B Current Condition Start: 12/09/24 15:44 Freq: Status: Active Protocol: Document 12/10/24 10:47 SAK (Rec: 12/10/24 11:35 [facility] [id number]) Current Condition History of Current Condition Onset Date 3+ yrs Current Complaints difficulty with walking History of Current Condition Feels like she is brain damaged, wobbles, has to think about it. has had every test known to man including pulmonology neurologist, blood testing. Found peripheral neuropathy, nothing else. Had psychotherapy, takes Lijarad Chirag. Symptoms recently got worse again. Cleared for Parkinson's. Had decreased Paxil, but wasn't feeling well , so increased to 10 mg. In house ok, most indoor spaces ok but tentative. Not dizzy, feels weaker than should. Has fallen 2 times; September 26 most recent, both times tripped over something she didn't see and was multitasking. Sometimes uses cane. Does water aerobics and , hasn't been good with other exercising. Has to do constant cues during walking what to do, stopped walking outside. States remembering getting wrong vaccine (3rd shingles shot instead of pneumonia shot), unsure if that may have caused it. Treatment Goals Patient/Caregiver Goals Would like to figure out why it's helping. Needs some tools for getting past Freezing PT-OP-D Balance Start: 12/09/24 15:44 Freq: Status: Active Protocol: Document 12/10/24 10:48 SAK (Rec: 12/10/24 15:40 [facility] [id number]) OP-PT Balance Assessment Sitting Balance Static Sitting Balance Ability Normal Dynamic Sitting Balance Ability Good Miller Balance Assessment Evaluation Sitting to Standing Ability Independent w/Hands Unsupported Stance Supervision- 2 minutes Sitting Unsupported, Feet on Floor Safely- 2 minutes Standing to Sitting Ability Assist, Use Legs on Chair Transfer Ability Safely, Hand Use Unsupported Stance- Eyes Closed Supervision, 10 seconds Unsupported Stance- Eyes Open Independent, 1 minute Reaching Forward Standing Safely, 5 inches Pick- Up Object From Floor Supervision Look Behind Shoulder - Standing Shifts Weight Unilateral Turning 360 Degrees Turns , < 4 secs Unsupported Stance, Alternating Feet on (I)- 8 Steps in > 20 secs Stair Unsupported Tandem Stance Balance Lost- Step/Stand Unilateral Leg Stance Unable,assist to not fall Total Score Miller Total Score (out of 56 points) 37 Diaz Fall Scale Copyright Permission PT-OP-E Functional Tests Start: 12/09/24 15:44 Freq: Status: Active Protocol: Document 12/10/24 10:48 SAK (Rec: 12/10/24 15:40 [facility] [id number]) Functional Tests Dynamic Gait Index (DGI) Score 07/16 Timed Up and Go (TUG) Score 18s PT-OP-G Mobility & Gait Start: 12/09/24 15:44 Freq: Status: Active Protocol: Document 12/10/24 10:47 SAK (Rec: 12/10/24 11:35 SAK [id number]) OP Mobility Evaluation Transfers Sit to Stand knees together PT-OP-H Neuro Start: 12/09/24 15:44 Freq: Status: Active Protocol: Document 12/10/24 10:48 SAK (Rec: 12/10/24 15:40 [facility] [id number]) Sensation Evaluation Gross Sensation Gross Sensation WNL PT-OP-J Posture/Palpation/Skin Start: 12/09/24 15:44 Freq: Status: Active Protocol: Document 12/10/24 10:48 SAK (Rec: 12/10/24 15:40 [facility] [id number]) Posture Evaluation Position Standing Knee Posture (L) Genu Valgus,(R) Genu Valgus Ankle/Foot Posture (L) Pronated,(R) Pronated PT-OP-M Strength Start: 12/09/24 15:44 Freq: Status: Active Protocol: Document 12/10/24 10:48 SAK (Rec: 12/10/24 15:40 [facility] [id number]) Hip Strength Hip Manual Muscle Testing Left Flexion (L2) 3+ Fair+ Extension (S1) 3- Fair- Abduction 4- Good- External Rotation 3+ Fair+ Internal Rotation 4- Good- Right Flexion (L2) 3+ Fair+ Extension (S1) 3- Fair- Abduction 3+ Fair+ External Rotation 3+ Fair+ Internal Rotation 4- Good- Knee Strength Knee Manual Muscle Testing dilip Flexion (S2) 4 Good Extension (L3) 4 Good Ankle/Foot Strength Ankle and Foot Manual Muscle Testing dilip Dorsiflexion (L4) 4 Good Plantarflexion (S1) 4 Good PT-OP-Q Treatments Start: 12/09/24 15:44 Freq: Status: Active Protocol: Document 12/10/24 10:48 SAK (Rec: 12/10/24 15:40 [facility] [id number]) Self-Care/Home Management Treatment Education Patient Education Home Exercise Program Other Education issued written HO PT-OP-T Assessment and Plan Start: 12/09/24 15:44 Freq: Status: Active Protocol: Document 12/10/24 10:47 SAK (Rec: 12/10/24 11:35 [facility] [id number]) Physical Therapy Assessment Goals Four Impairment History of falls with Activities specific Balance confidence Scale 52.5 Usp Goal (LTG) Improve score to at least 75 as measure of patient improved balance confidence LTG Duration 03/12/25 Three Impairment Gait dysfunction with DGI score 10/24 Health Promotion Officer Goal (LTG) Improve gait as evidenced by no falls, improvement in DGI score to at least 17 as measure of decreased fall risk LTG Duration 03/12/25 Two Impairment Balance dysfunction with Miller Balance SCore 37/56 and TUG 18 sec Health Promotion Officer Goal (LTG) Improve Miller Balance score to at least 45/56 and TUG to no greater than 10 sec as measures of improved functional balance and safety LTG Duration 03/12/25 One Impairment LE weakness Short Term Goal (STG) Patient to be instructed in progressive individualized HEP for purposes of addressing impairments in LE strength STG Duration 01/26/25 Usp Goal (LTG) Patient to be independent and compliant in HEP and demonstrate improvements in LE strength to at least 4+/5 throughout LTG Duration 03/12/25 Assessment Summary Assessment Patient presents to PT with function-limiting impairments in LE strength, balance, and gait with some symptoms including slow gait, freezing that appear consistent with Parkinson's disease though patient reports she was cleared by a neurologist. She reported extensive medical testing due to her functional impairments and symptomsbut no diagnosis made except for peripheral neuropathy. Patient light touch and proprioceptive testing normal. Moderate weakness evident in hips, balance and gait testing reveal patient is at high risk for further falls ( reported 2 in the past 6 months; tripping over object at home). She has a history of bilateral TKA and right DELL . Feel she would benefit highly from PT for LE strengthening, balance and gait training. POC was discussed and she was in agreement. Also feel she may benefit from another neurology consult; last was 1 1/2 yrs ago. Physical Therapy Plan Frequency and Duration Frequency of Treatment 2x/Week Duration of treatment (weeks) 12 Plan of Care Start Date 12/10/24 Plan of Care End Date 03/12/25 Therapeutic Interventions Therapeutic Interventions Gait Training,Home Exercise Program,Neuromuscular Re- education,Patient/Caregiver Education,Self-Care/Home Management,Soft Tissue Mobilization,Therapeutic Activities,Therapeutic Exercises Other Referrals/Consults Referrals/Consults Recommended Recommend neuro consult Next Visit Focus/Plan Next Note Type Treatment Note Next Visit Plan Start with recumbant elliptical, progress LE strengtheing, gait, and balance activities and update HEP handout as needed.
--- NOTE | 2024-12-10 15:45 | PT.OPPOC ---
Physical, Occupational & Speech Therapy At Current Diagnoses Unspecified abnormalities of gait and mobility (12/10/24) Visit Care Team Role Provider Type Stalin Mccarthy MD Attending Provider Physician Primary Care Provider Referring Provider Specialty: Family Practice Address: [address] [place], [address] Email: [email or web address] Plan Of Care PT-OP-B Current Condition Start: 12/09/24 15:44 Freq: Status: Active Protocol: Document 12/10/24 10:47 SAK (Rec: 12/10/24 11:35 SAK [id number]) Current Condition History of Current Condition Onset Date 3+ yrs Current Complaints difficulty with walking History of Current Condition Feels like she is brain damaged, wobbles, has to think about it. has had every test known to man including pulmonology neurologist, blood testing. Found peripheral neuropathy, nothing else. Had psychotherapy, takes Lions Chirag. Symptoms recently got worse again. Cleared for Parkinson's. Had decreased Paxil, but wasn't feeling well , so increased to 10 mg. In house ok, most indoor spaces ok but tentative. Not dizzy, feels weaker than should. Has fallen 2 times; September 26 most recent, both times tripped over something she didn't see and was multitasking. Sometimes uses cane. Does water aerobics M and Th, hasn't been good with other exercising. Has to do constant cues during walking what to do, stopped walking outside. States remembering getting wrong vaccine (3rd shingles shot instead of pneumonia shot), unsure if that may have caused it. Treatment Goals Patient/Caregiver Goals Would like to figure out why it's helping. Needs some tools for getting past Freezing PT-OP-T Assessment and Plan Start: 12/09/24 15:44 Freq: Status: Active Protocol: Document 12/10/24 10:47 SAK (Rec: 12/10/24 11:35 [facility]AK [id number]) Physical Therapy Assessment Goals Four Impairment History of falls with Activities specific Balance confidence Scale 52.5 Rail Layer Goal (LTG) Improve score to at least 75 as measure of patient improved balance confidence LTG Duration 03/12/25 Three Impairment Gait dysfunction with DGI score 10/24 Rail Layer Goal (LTG) Improve gait as evidenced by no falls, improvement in DGI score to at least 17 as measure of decreased fall risk LTG Duration 03/12/25 Two Impairment Balance dysfunction with Mliler Balance SCore 37/56 and TUG 18 sec Fpc Goal (LTG) Improve Miller Balance score to at least 45/56 and TUG to no greater than 10 sec as measures of improved functional balance and safety LTG Duration 03/12/25 One Impairment LE weakness Short Term Goal (STG) Patient to be instructed in progressive individualized HEP for purposes of addressing impairments in LE strength STG Duration 01/26/25 Fpc Goal (LTG) Patient to be independent and compliant in HEP and demonstrate improvements in LE strength to at least 4+/5 throughout LTG Duration 03/12/25 Assessment Summary Assessment Patient presents to PT with function-limiting impairments in LE strength, balance, and gait with some symptoms including slow gait, freezing that appear consistent with Parkinson's disease though patient reports she was cleared by a neurologist. She reported extensive medical testing due to her functional impairments and symptomsbut no diagnosis made except for peripheral neuropathy. Patient light touch and proprioceptive testing normal. Moderate weakness evident in hips, balance and gait testing reveal patient is at high risk for further falls ( reported 2 in the past 6 months; tripping over object at home). She has a history of bilateral TKA and right DELL . Feel she would benefit highly from PT for LE strengthening, balance and gait training. POC was discussed and she was in agreement. Also feel she may benefit from another neurology consult; last was 1 1/2 yrs ago. Physical Therapy Plan Frequency and Duration Frequency of Treatment 2x/Week Duration of treatment (weeks) 12 Plan of Care Start Date 12/10/24 Plan of Care End Date 03/12/25 Therapeutic Interventions Therapeutic Interventions Gait Training,Home Exercise Program,Neuromuscular Re- education,Patient/Caregiver Education,Self-Care/Home Management,Soft Tissue Mobilization,Therapeutic Activities,Therapeutic Exercises Other Referrals/Consults Referrals/Consults Recommended Recommend neuro consult Next Visit Focus/Plan Next Note Type Treatment Note Next Visit Plan Start with recumbant elliptical, progress LE strengtheing, gait, and balance activities and update HEP handout as needed. Plan of Care Dates Plan of Care Start Date 12/10/24 Plan of Care End Date 03/12/25 Electronically Signed by: Yocasta Holden, PT 12/10/24 1545 If you are in agreement with this Plan of Care, please return a signed and dated copy. I have reviewed this Plan of Care and certify that the skilled therapy services above are required to meet the patient?s needs. Physician Signature Date Printed Name and Credentials Clinical Instructor Signature Printed Name and Credentials
--- NOTE | 2024-12-17 17:09 | PT.OTN ---
Current Diagnoses Unspecified abnormalities of gait and mobility (12/16/24) Physical Therapy Treatment Note PT-OP-A Visit Information Start: 12/09/24 15:44 Freq: Status: Active Protocol: Document 12/16/24 11:29 SAK (Rec: 12/16/24 11:32 [facility] [id number]) Out-Patient Physical Therapy Visit Information Visit Information Visit Type Treatment Note Visit Start Time 10:45 Visit Stop Time 11:28 Visit Number 2 Evaluation Information Evaluation Date 12/10/24 PT-OP-B Current Condition Start: 12/09/24 15:44 Freq: Status: Active Protocol: Document 12/16/24 11:29 SAK (Rec: 12/16/24 11:32 [facility] [id number]) Current Condition History of Current Condition Onset Date 3+ yrs Current Complaints difficulty with walking History of Current Condition Feels like she is brain damaged, wobbles, has to think about it. has had every test known to man including pulmonology neurologist, blood testing. Found peripheral neuropathy, nothing else. Had psychotherapy, takes Lijarad Chirag. Symptoms recently got worse again. Cleared for Parkinson's. Had decreased Paxil, but wasn't feeling well , so increased to 10 mg. In house ok, most indoor spaces ok but tentative. Not dizzy, feels weaker than should. Has fallen 2 times; September 26 most recent, both times tripped over something she didn't see and was multitasking. Sometimes uses cane. Does water aerobics M and Th, hasn't been good with other exercising. Has to do constant cues during walking what to do, stopped walking outside. States remembering getting wrong vaccine (3rd shingles shot instead of pneumonia shot), unsure if that may have caused it. Treatment Goals Patient/Caregiver Goals Needs some tools for getting past Freezing PT-OP-D Balance Start: 12/09/24 15:44 Freq: Status: Active Protocol: Document 12/10/24 10:48 SAK (Rec: 12/10/24 15:40 SAK [id number]) OP-PT Balance Assessment Sitting Balance Static Sitting Balance Ability Normal Dynamic Sitting Balance Ability Good Miller Balance Assessment Evaluation Sitting to Standing Ability Independent w/Hands Unsupported Stance Supervision- 2 minutes Sitting Unsupported, Feet on Floor Safely- 2 minutes Standing to Sitting Ability Assist, Use Legs on Chair Transfer Ability Safely, Hand Use Unsupported Stance- Eyes Closed Supervision, 10 seconds Unsupported Stance- Eyes Open Independent, 1 minute Reaching Forward Standing Safely, 5 inches Pick- Up Object From Floor Supervision Look Behind Shoulder - Standing Shifts Weight Unilateral Turning 360 Degrees Turns , < 4 secs Unsupported Stance, Alternating Feet on (I)- 8 Steps in > 20 secs Stair Unsupported Tandem Stance Balance Lost- Step/Stand Unilateral Leg Stance Unable,assist to not fall Total Score Miller Total Score (out of 56 points) 37 Diaz Fall Scale Copyright Permission PT-OP-E Functional Tests Start: 12/09/24 15:44 Freq: Status: Active Protocol: Document 12/10/24 10:48 SAK (Rec: 12/10/24 15:40 [facility] [id number]) Functional Tests Dynamic Gait Index (DGI) Score 07/16 Timed Up and Go (TUG) Score 18s PT-OP-G Mobility & Gait Start: 12/09/24 15:44 Freq: Status: Active Protocol: Document 12/10/24 10:47 SAK (Rec: 12/10/24 11:35 [facility] [id number]) OP Mobility Evaluation Transfers Sit to Stand knees together PT-OP-H Neuro Start: 12/09/24 15:44 Freq: Status: Active Protocol: Document 12/10/24 10:48 SAK (Rec: 12/10/24 15:40 [facility] [id number]) Sensation Evaluation Gross Sensation Gross Sensation WNL PT-OP-J Posture/Palpation/Skin Start: 12/09/24 15:44 Freq: Status: Active Protocol: Document 12/10/24 10:48 SAK (Rec: 12/10/24 15:40 [facility] [id number]) Posture Evaluation Position Standing Knee Posture (L) Genu Valgus,(R) Genu Valgus Ankle/Foot Posture (L) Pronated,(R) Pronated PT-OP-M Strength Start: 12/09/24 15:44 Freq: Status: Active Protocol: Document 12/10/24 10:48 SAK (Rec: 12/10/24 15:40 [facility] [id number]) Hip Strength Hip Manual Muscle Testing Left Flexion (L2) 3+ Fair+ Extension (S1) 3- Fair- Abduction 4- Good- External Rotation 3+ Fair+ Internal Rotation 4- Good- Right Flexion (L2) 3+ Fair+ Extension (S1) 3- Fair- Abduction 3+ Fair+ External Rotation 3+ Fair+ Internal Rotation 4- Good- Knee Strength Knee Manual Muscle Testing dilip Flexion (S2) 4 Good Extension (L3) 4 Good Ankle/Foot Strength Ankle and Foot Manual Muscle Testing dilip Dorsiflexion (L4) 4 Good Plantarflexion (S1) 4 Good PT-OP-Q Treatments Start: 12/09/24 15:44 Freq: Status: Active Protocol: Document 12/16/24 11:29 [facility] (Rec: 12/16/24 11:32 [facility] [id number]) Cardio Equipment Recumbent Stepper (Sci-Fit) Duration (Minutes) 5 Resistance 1 Seat Position 9 Other cues for knee alignment Therapeutic Exercises Sitting Exercises sit to stand Reps/Minutes 10x Comments cues for hip hinge, gluteal activation seated clam jesus alberto Resistance L2 TB Reps/Minutes 1 min Standing Exercises tandem stand Equipment Used parallel bars Reps/Minutes 3x ea Comments requires UE support SLS Equipment Used parallel bars Reps/Minutes 5x ea Comments requires UE support HC stretch Standing Exercise Name gastroc and soleus Equipment Used ARY Reps/Minutes 2x30 heel raise, toe raise Equipment Used parallel bars Reps/Minutes 10x Gait Training Gait Activity challenged gait Description hallway Device Used gait belt Level of Assistance CG to min A Surface firm Distance/Duration 20 min Treatment Focus balance, gait safety Comments relaxed arm swing, alternating speeds, marching, sidestepping, backward walking , head turns, heel walk, toe walk PT-OP-T Assessment and Plan Start: 12/09/24 15:44 Freq: Status: Active Protocol: Document 12/16/24 11:29 [facility] (Rec: 12/16/24 11:32 [facility] [id number]) Physical Therapy Assessment Goals Four Impairment History of falls with Activities specific Balance confidence Scale 52.5 [facility] Goal (LTG) Improve score to at least 75 as measure of patient improved balance confidence LTG Duration 03/12/25 Three Impairment Gait dysfunction with DGI score 10/24 [facility] Goal (LTG) Improve gait as evidenced by no falls, improvement in DGI score to at least 17 as measure of decreased fall risk LTG Duration 03/12/25 Two Impairment Balance dysfunction with Miller Balance SCore 37/56 and TUG 18 sec [facility] Goal (LTG) Improve Miller Balance score to at least 45/56 and TUG to no greater than 10 sec as measures of improved functional balance and safety LTG Duration 03/12/25 One Impairment LE weakness Short Term Goal (STG) Patient to be instructed in progressive individualized HEP for purposes of addressing impairments in LE strength STG Duration 01/26/25 Chief Operator Lock Tender Goal (LTG) Patient to be independent and compliant in HEP and demonstrate improvements in LE strength to at least 4+/5 throughout LTG Duration 03/12/25 Assessment Summary Assessment Patient required 2 seated rest breaks, required CG to min assist for challenged gait activities in parallel bars, c /o having to think about each step. Highly motivated, compliant to HEP. Physical Therapy Plan Frequency and Duration Frequency of Treatment 2x/Week Duration of treatment (weeks) 12 Plan of Care Start Date 12/10/24 Plan of Care End Date 03/12/25 Therapeutic Interventions Therapeutic Interventions Gait Training,Home Exercise Program,Neuromuscular Re- education,Patient/Caregiver Education,Self-Care/Home Management,Soft Tissue Mobilization,Therapeutic Activities,Therapeutic Exercises Next Visit Focus/Plan Next Note Type Treatment Note Next Visit Plan Trial shuttle balance activities, BOSU, gait with metronome.
--- NOTE | 2024-12-18 10:20 | PT.OTN ---
Current Diagnoses Unspecified abnormalities of gait and mobility (12/18/24) Physical Therapy Treatment Note PT-OP-A Visit Information Start: 12/09/24 15:44 Freq: Status: Active Protocol: Document 12/18/24 08:20 AB (Rec: 12/18/24 10:19 AB [id number]) Out-Patient Physical Therapy Visit Information Visit Information Visit Type Treatment Note Visit Note Access Code [email or web address] Visit Start Time 09:20 Visit Stop Time 09:02 Visit Number 3 Number of AUTOMATIC NAILING MACHINE OPERATOR Visits 1 PT-OP-B Current Condition Start: 12/09/24 15:44 Freq: Status: Active Protocol: Document 12/16/24 11:29 SAK (Rec: 12/16/24 11:32 SAK [id number]) Current Condition History of Current Condition Onset Date 3+ yrs Current Complaints difficulty with walking History of Current Condition Feels like she is brain damaged, wobbles, has to think about it. has had every test known to man including pulmonology neurologist, blood testing. Found peripheral neuropathy, nothing else. Had psychotherapy, takes [employer] Chirag. Symptoms recently got worse again. Cleared for Parkinson's. Had decreased Paxil, but wasn't feeling well , so increased to 10 mg. In house ok, most indoor spaces ok but tentative. Not dizzy, feels weaker than should. Has fallen 2 times; September 26 most recent, both times tripped over something she didn't see and was multitasking. Sometimes uses cane. Does water aerobics M and Th, hasn't been good with other exercising. Has to do constant cues during walking what to do, stopped walking outside. States remembering getting wrong vaccine (3rd shingles shot instead of pneumonia shot), unsure if that may have caused it. Treatment Goals Patient/Caregiver Goals Needs some tools for getting past Freezing PT-OP-C Subjective Start: 12/09/24 15:44 Freq: Status: Active Protocol: Document 12/18/24 08:20 AB (Rec: 12/18/24 10:19 AB [id number]) OP-PT Subjective Patient Comments Patient Comments Patient reports she is the same, comments L knee always feels not as good as right knee. sit to stand with bilateral UE use and excessive hip adduction. PT-OP-D Balance Start: 12/09/24 15:44 Freq: Status: Active Protocol: Document 12/10/24 10:48 SAK (Rec: 12/10/24 15:40 SAK [id number]) OP-PT Balance Assessment Sitting Balance Static Sitting Balance Ability Normal Dynamic Sitting Balance Ability Good Miller Balance Assessment Evaluation Sitting to Standing Ability Independent w/Hands Unsupported Stance Supervision- 2 minutes Sitting Unsupported, Feet on Floor Safely- 2 minutes Standing to Sitting Ability Assist, Use Legs on Chair Transfer Ability Safely, Hand Use Unsupported Stance- Eyes Closed Supervision, 10 seconds Unsupported Stance- Eyes Open Independent, 1 minute Reaching Forward Standing Safely, 5 inches Pick- Up Object From Floor Supervision Look Behind Shoulder - Standing Shifts Weight Unilateral Turning 360 Degrees Turns , < 4 secs Unsupported Stance, Alternating Feet on (I)- 8 Steps in > 20 secs Stair Unsupported Tandem Stance Balance Lost- Step/Stand Unilateral Leg Stance Unable,assist to not fall Total Score Miller Total Score (out of 56 points) 37 Diaz Fall Scale Copyright Permission PT-OP-E Functional Tests Start: 12/09/24 15:44 Freq: Status: Active Protocol: Document 12/10/24 10:48 SAK (Rec: 12/10/24 15:40 [facility] [id number]) Functional Tests Dynamic Gait Index (DGI) Score 07/16 Timed Up and Go (TUG) Score 18s PT-OP-G Mobility & Gait Start: 12/09/24 15:44 Freq: Status: Active Protocol: Document 12/10/24 10:47 SAK (Rec: 12/10/24 11:35 SAK [id number]) OP Mobility Evaluation Transfers Sit to Stand knees together PT-OP-H Neuro Start: 12/09/24 15:44 Freq: Status: Active Protocol: Document 12/10/24 10:48 SAK (Rec: 12/10/24 15:40 SAK [id number]) Sensation Evaluation Gross Sensation Gross Sensation WNL PT-OP-J Posture/Palpation/Skin Start: 12/09/24 15:44 Freq: Status: Active Protocol: Document 12/10/24 10:48 SAK (Rec: 12/10/24 15:40 SAK [id number]) Posture Evaluation Position Standing Knee Posture (L) Genu Valgus,(R) Genu Valgus Ankle/Foot Posture (L) Pronated,(R) Pronated PT-OP-M Strength Start: 12/09/24 15:44 Freq: Status: Active Protocol: Document 12/10/24 10:48 SAK (Rec: 12/10/24 15:40 SAK [id number]) Hip Strength Hip Manual Muscle Testing Left Flexion (L2) 3+ Fair+ Extension (S1) 3- Fair- Abduction 4- Good- External Rotation 3+ Fair+ Internal Rotation 4- Good- Right Flexion (L2) 3+ Fair+ Extension (S1) 3- Fair- Abduction 3+ Fair+ External Rotation 3+ Fair+ Internal Rotation 4- Good- Knee Strength Knee Manual Muscle Testing dilip Flexion (S2) 4 Good Extension (L3) 4 Good Ankle/Foot Strength Ankle and Foot Manual Muscle Testing dilip Dorsiflexion (L4) 4 Good Plantarflexion (S1) 4 Good PT-OP-Q Treatments Start: 12/09/24 15:44 Freq: Status: Active Protocol: Document 12/18/24 08:20 AB (Rec: 12/18/24 10:19 AB [id number]) Cardio Equipment Recumbent Stepper (Sci-Fit) Duration (Minutes) 3 Resistance 1 Seat Position 9 Other warm up Gym Equipment Shuttle Balance red Details normal KEILA Reps/Duration 3 min Comments CGA with head turns, visual scanning, initaited with one UE then no UE use Therapeutic Exercises Sitting Exercises sit to stand Reps/Minutes X4 Comments Pt ed mech of sit to stand and self tactile cues for hip hinge seated clam jesus alberto Resistance L2 TB Reps/Minutes 1 min also X 15 Comments Verbal cues Standing Exercises side stepping with band Standing Exercise Name with UE support Side bilateral Resistance level 2 band Reps/Minutes 10 feet left and right X 3 tandem stand Standing Exercise Name HEP HC stretch Standing Exercise Name gastroc and soleus Equipment Used ARY Reps/Minutes 2x60 Comments Verbal cues heel raise, toe raise Standing Exercise Name Heel raise Equipment Used parallel bars Reps/Minutes 15x Comments verbal cues to lower slowly Gait Training Gait Activity WS with stepping Device Used SPC Surface floor/stable Distance/Duration stepping in place X 5 each LE Comments VC for lateral and anterior weight shift prior to stepping . Patient ed trial of weight shifting if freeziing occurs ascending and descending step Description curb simulation ( 4 inch step only) Device Used SPC Level of Assistance CGA Treatment Focus X1 Comments SPC adjusted for height, Verbal cues for sequence up with good down with bad, and for cane position/sequence. patient advised to avoid curbs at this time due to height of curbs and unsteady gait Neuro Re-Education Treatment Balance Activities SLS Reps/Duration 3X 2 each LE Comments CGA withotu UE use BOSU Details 1. marching blue side 2. AP and lat WS black side 3. Mini squat black side Reps/Duration 1. X 12 2. X 6 each 3. X 8 Comments CGA hands above bars once on BOSU foam Details Romberg with eyes closed and SLS Reps/Duration 3 min Comments CGA hands above bars PT-OP-T Assessment and Plan Start: 12/09/24 15:44 Freq: Status: Active Protocol: Document 12/18/24 08:20 AB (Rec: 12/18/24 10:19 AB [id number]) Physical Therapy Assessment Goals Four Impairment History of falls with Activities specific Balance confidence Scale 52.5 Retirement Goal (LTG) Improve score to at least 75 as measure of patient improved balance confidence LTG Duration 03/12/25 Three Impairment Gait dysfunction with DGI score 10/24 Retirement Goal (LTG) Improve gait as evidenced by no falls, improvement in DGI score to at least 17 as measure of decreased fall risk LTG Duration 03/12/25 Two Impairment Balance dysfunction with Miller Balance SCore 37/56 and TUG 18 sec Back Tender Pulp Drier Goal (LTG) Improve Miller Balance score to at least 45/56 and TUG to no greater than 10 sec as measures of improved functional balance and safety LTG Duration 03/12/25 One Impairment LE weakness Short Term Goal (STG) Patient to be instructed in progressive individualized HEP for purposes of addressing impairments in LE strength STG Duration 01/26/25 Back Tender Pulp Drier Goal (LTG) Patient to be independent and compliant in HEP and demonstrate improvements in LE strength to at least 4+/5 throughout LTG Duration 03/12/25 Assessment Summary Assessment Amisha reports feeling of work muscles gestures to glute med area, reports having no pain end of session. SLS less than one sec L and right LE, improved to 1 sec on R post glute med activation, but left continues to perform less than one sec Physical Therapy Plan Frequency and Duration Frequency of Treatment 2x/Week Duration of treatment (weeks) 12 Plan of Care Start Date 12/10/24 Plan of Care End Date 03/12/25 Next Visit Focus/Plan Next Note Type Treatment Note Next Visit Plan Continue shuttle balance activities, BOSU, trial gait with metronome.
--- NOTE | 2024-12-25 09:17 | PT.OTN ---
Current Diagnoses Unspecified abnormalities of gait and mobility (12/25/24) Physical Therapy Treatment Note PT-OP-A Visit Information Start: 12/09/24 15:44 Freq: Status: Active Protocol: Document 12/25/24 07:26 AB (Rec: 12/25/24 09:02 AB [id number]) Out-Patient Physical Therapy Visit Information Visit Information Visit Type Treatment Note Visit Start Time 08:17 Visit Stop Time 09:00 Visit Number 4 Number of LIFESTYLE BLOCK FARMER Visits 2 PT-OP-B Current Condition Start: 12/09/24 15:44 Freq: Status: Active Protocol: Document 12/16/24 11:29 SAK (Rec: 12/16/24 11:32 SAK [id number]) Current Condition History of Current Condition Onset Date 3+ yrs Current Complaints difficulty with walking History of Current Condition Feels like she is brain damaged, wobbles, has to think about it. has had every test known to man including pulmonology neurologist, blood testing. Found peripheral neuropathy, nothing else. Had psychotherapy, takes Lions Chirag. Symptoms recently got worse again. Cleared for Parkinson's. Had decreased Paxil, but wasn't feeling well , so increased to 10 mg. In house ok, most indoor spaces ok but tentative. Not dizzy, feels weaker than should. Has fallen 2 times; September 26 most recent, both times tripped over something she didn't see and was multitasking. Sometimes uses cane. Does water aerobics M and Th, hasn't been good with other exercising. Has to do constant cues during walking what to do, stopped walking outside. States remembering getting wrong vaccine (3rd shingles shot instead of pneumonia shot), unsure if that may have caused it. Treatment Goals Patient/Caregiver Goals Needs some tools for getting past Freezing PT-OP-C Subjective Start: 12/09/24 15:44 Freq: Status: Active Protocol: Document 12/25/24 07:26 AB (Rec: 12/25/24 09:02 AB [id number]) OP-PT Subjective Patient Comments Patient Comments Patient reports she did the exercises but is not getting better at the tandem stance exercise. Patient was sick this week and did what she could for HEP. Patient rates pain 0/10 start of session. PT-OP-D Balance Start: 12/09/24 15:44 Freq: Status: Active Protocol: Document 12/10/24 10:48 SAK (Rec: 12/10/24 15:40 [facility] [id number]) OP-PT Balance Assessment Sitting Balance Static Sitting Balance Ability Normal Dynamic Sitting Balance Ability Good Miller Balance Assessment Evaluation Sitting to Standing Ability Independent w/Hands Unsupported Stance Supervision- 2 minutes Sitting Unsupported, Feet on Floor Safely- 2 minutes Standing to Sitting Ability Assist, Use Legs on Chair Transfer Ability Safely, Hand Use Unsupported Stance- Eyes Closed Supervision, 10 seconds Unsupported Stance- Eyes Open Independent, 1 minute Reaching Forward Standing Safely, 5 inches Pick- Up Object From Floor Supervision Look Behind Shoulder - Standing Shifts Weight Unilateral Turning 360 Degrees Turns , < 4 secs Unsupported Stance, Alternating Feet on (I)- 8 Steps in > 20 secs Stair Unsupported Tandem Stance Balance Lost- Step/Stand Unilateral Leg Stance Unable,assist to not fall Total Score Miller Total Score (out of 56 points) 37 Diaz Fall Scale Copyright Permission PT-OP-E Functional Tests Start: 12/09/24 15:44 Freq: Status: Active Protocol: Document 12/10/24 10:48 SAK (Rec: 12/10/24 15:40 [facility] [id number]) Functional Tests Dynamic Gait Index (DGI) Score 07/16 Timed Up and Go (TUG) Score 18s PT-OP-G Mobility & Gait Start: 12/09/24 15:44 Freq: Status: Active Protocol: Document 12/10/24 10:47 SAK (Rec: 12/10/24 11:35 SAK [id number]) OP Mobility Evaluation Transfers Sit to Stand knees together PT-OP-H Neuro Start: 12/09/24 15:44 Freq: Status: Active Protocol: Document 12/10/24 10:48 SAK (Rec: 12/10/24 15:40 [facility] [id number]) Sensation Evaluation Gross Sensation Gross Sensation WNL PT-OP-J Posture/Palpation/Skin Start: 12/09/24 15:44 Freq: Status: Active Protocol: Document 12/10/24 10:48 SAK (Rec: 12/10/24 15:40 SAK [id number]) Posture Evaluation Position Standing Knee Posture (L) Genu Valgus,(R) Genu Valgus Ankle/Foot Posture (L) Pronated,(R) Pronated PT-OP-M Strength Start: 12/09/24 15:44 Freq: Status: Active Protocol: Document 12/10/24 10:48 SAK (Rec: 12/10/24 15:40 SAK [id number]) Hip Strength Hip Manual Muscle Testing Left Flexion (L2) 3+ Fair+ Extension (S1) 3- Fair- Abduction 4- Good- External Rotation 3+ Fair+ Internal Rotation 4- Good- Right Flexion (L2) 3+ Fair+ Extension (S1) 3- Fair- Abduction 3+ Fair+ External Rotation 3+ Fair+ Internal Rotation 4- Good- Knee Strength Knee Manual Muscle Testing dilip Flexion (S2) 4 Good Extension (L3) 4 Good Ankle/Foot Strength Ankle and Foot Manual Muscle Testing dilip Dorsiflexion (L4) 4 Good Plantarflexion (S1) 4 Good PT-OP-Q Treatments Start: 12/09/24 15:44 Freq: Status: Active Protocol: Document 12/25/24 07:26 AB (Rec: 12/25/24 09:02 AB [id number]) Gym Equipment Shuttle Balance red Details normal KEILA, stagger w/o scann or head turns Reps/Duration 3 min Comments CGA with head turns, visual scanning, initaited with one UE then no UE use Therapeutic Exercises Sitting Exercises sit to stand Reps/Minutes X2 during session then X 8 Comments VC to av pause post hip hinge seated clam jesus alberto Sitting Exercise Name HEP Resistance L3 TB Comments Verbal cues Standing Exercises side stepping with band Standing Exercise Name with UE support Side bilateral Resistance level 3 band Reps/Minutes 10 feet left and right X 3 HC stretch Standing Exercise Name gastroc and soleus Equipment Used ARY Reps/Minutes 1x60 also with step through X10 Comments Verbal cues heel raise, toe raise Standing Exercise Name Heel raise Equipment Used parallel bars Reps/Minutes X10 Comments verbal cues to lower slowly Neuro Re-Education Treatment Balance Activities tandem stance Details eyes closed Reps/Duration ~2 min Comments CGA hands above bars SLS Reps/Duration 2-3X 3 each LE Comments CGA withotu UE use BOSU Details 1. marching blue side 2. AP and lat WS black side 3. Mini squat black side Reps/Duration X10 Comments CGA hands above bars once on BOSU foam Details step up taps standing on foam Equipment foam to 6 inch step Reps/Duration X10 Comments CGA hands above bars PT-OP-T Assessment and Plan Start: 12/09/24 15:44 Freq: Status: Active Protocol: Document 12/25/24 07:26 AB (Rec: 12/25/24 09:02 AB [id number]) Physical Therapy Assessment Goals Four Impairment History of falls with Activities specific Balance confidence Scale 52.5 Ticket Agent Goal (LTG) Improve score to at least 75 as measure of patient improved balance confidence LTG Duration 03/12/25 Three Impairment Gait dysfunction with DGI score 10/24 Ticket Agent Goal (LTG) Improve gait as evidenced by no falls, improvement in DGI score to at least 17 as measure of decreased fall risk LTG Duration 03/12/25 Two Impairment Balance dysfunction with Miller Balance SCore 37/56 and TUG 18 sec Residential Goal (LTG) Improve Miller Balance score to at least 45/56 and TUG to no greater than 10 sec as measures of improved functional balance and safety LTG Duration 03/12/25 One Impairment LE weakness Short Term Goal (STG) Patient to be instructed in progressive individualized HEP for purposes of addressing impairments in LE strength STG Duration 01/26/25 Ticket Agent Goal (LTG) Patient to be independent and compliant in HEP and demonstrate improvements in LE strength to at least 4+/5 throughout LTG Duration 03/12/25 Assessment Summary Assessment Amisha reports having no pain end of session. Significant inc in SLS R without shoes, L continues to be limited. Physical Therapy Plan Frequency and Duration Frequency of Treatment 2x/Week Duration of treatment (weeks) 12 Plan of Care Start Date 12/10/24 Plan of Care End Date 03/12/25 Next Visit Focus/Plan Next Note Type Treatment Note Next Visit Plan Continue shuttle balance activities, BOSU, trial gait with metronome.
--- NOTE | 2024-12-29 15:05 | PT.OTN ---
Current Diagnoses Unspecified abnormalities of gait and mobility (12/29/24) Physical Therapy Treatment Note PT-OP-A Visit Information Start: 12/09/24 15:44 Freq: Status: Active Protocol: Document 12/29/24 12:59 SAK (Rec: 12/29/24 13:45 SAK Laptop) Out-Patient Physical Therapy Visit Information Visit Information Visit Type Treatment Note Visit Start Time 12:59 Visit Stop Time 13:43 Visit Number 5 Number of COMMERCIAL LENDING VICE PRESIDENT Visits 0 PT-OP-B Current Condition Start: 12/09/24 15:44 Freq: Status: Active Protocol: Document 12/29/24 12:59 SAK (Rec: 12/29/24 13:45 SAK Laptop) Current Condition History of Current Condition Onset Date 3+ yrs Current Complaints difficulty with walking History of Current Condition Feels like she is brain damaged, wobbles, has to think about it. has had every test known to man including pulmonology neurologist, blood testing. Found peripheral neuropathy, nothing else. Had psychotherapy, takes Lions Chirag. Symptoms recently got worse again. Cleared for Parkinson's. Had decreased Paxil, but wasn't feeling well , so increased to 10 mg. In house ok, most indoor spaces ok but tentative. Not dizzy, feels weaker than should. Has fallen 2 times; September 26 most recent, both times tripped over something she didn't see and was multitasking. Sometimes uses cane. Does water aerobics M and Th, hasn't been good with other exercising. Has to do constant cues during walking what to do, stopped walking outside. States remembering getting wrong vaccine (3rd shingles shot instead of pneumonia shot), unsure if that may have caused it. PT-OP-C Subjective Start: 12/09/24 15:44 Freq: Status: Active Protocol: Document 12/29/24 12:59 SAK (Rec: 12/29/24 13:45 SAK Laptop) OP-PT Subjective Patient Comments Patient Comments Just joined [employer] yesterday and has started doing Reynaldo Chi at [employer]. PT-OP-D Balance Start: 12/09/24 15:44 Freq: Status: Active Protocol: Document 12/10/24 10:48 SAK (Rec: 12/10/24 15:40 SAK [id number]) OP-PT Balance Assessment Sitting Balance Static Sitting Balance Ability Normal Dynamic Sitting Balance Ability Good Miller Balance Assessment Evaluation Sitting to Standing Ability Independent w/Hands Unsupported Stance Supervision- 2 minutes Sitting Unsupported, Feet on Floor Safely- 2 minutes Standing to Sitting Ability Assist, Use Legs on Chair Transfer Ability Safely, Hand Use Unsupported Stance- Eyes Closed Supervision, 10 seconds Unsupported Stance- Eyes Open Independent, 1 minute Reaching Forward Standing Safely, 5 inches Pick- Up Object From Floor Supervision Look Behind Shoulder - Standing Shifts Weight Unilateral Turning 360 Degrees Turns , < 4 secs Unsupported Stance, Alternating Feet on (I)- 8 Steps in > 20 secs Stair Unsupported Tandem Stance Balance Lost- Step/Stand Unilateral Leg Stance Unable,assist to not fall Total Score Miller Total Score (out of 56 points) 37 Diaz Fall Scale Copyright Permission PT-OP-E Functional Tests Start: 12/09/24 15:44 Freq: Status: Active Protocol: Document 12/10/24 10:48 SAK (Rec: 12/10/24 15:40 SAK [id number]) Functional Tests Dynamic Gait Index (DGI) Score 07/16 Timed Up and Go (TUG) Score 18s PT-OP-G Mobility & Gait Start: 12/09/24 15:44 Freq: Status: Active Protocol: Document 12/10/24 10:47 SAK (Rec: 12/10/24 11:35 SAK [id number]) OP Mobility Evaluation Transfers Sit to Stand knees together PT-OP-H Neuro Start: 12/09/24 15:44 Freq: Status: Active Protocol: Document 12/10/24 10:48 SAK (Rec: 12/10/24 15:40 SAK [id number]) Sensation Evaluation Gross Sensation Gross Sensation WNL PT-OP-J Posture/Palpation/Skin Start: 12/09/24 15:44 Freq: Status: Active Protocol: Document 12/10/24 10:48 SAK (Rec: 12/10/24 15:40 SAK [id number]) Posture Evaluation Position Standing Knee Posture (L) Genu Valgus,(R) Genu Valgus Ankle/Foot Posture (L) Pronated,(R) Pronated PT-OP-M Strength Start: 12/09/24 15:44 Freq: Status: Active Protocol: Document 12/10/24 10:48 SAK (Rec: 12/10/24 15:40 SAK [id number]) Hip Strength Hip Manual Muscle Testing Left Flexion (L2) 3+ Fair+ Extension (S1) 3- Fair- Abduction 4- Good- External Rotation 3+ Fair+ Internal Rotation 4- Good- Right Flexion (L2) 3+ Fair+ Extension (S1) 3- Fair- Abduction 3+ Fair+ External Rotation 3+ Fair+ Internal Rotation 4- Good- Knee Strength Knee Manual Muscle Testing dilip Flexion (S2) 4 Good Extension (L3) 4 Good Ankle/Foot Strength Ankle and Foot Manual Muscle Testing dilip Dorsiflexion (L4) 4 Good Plantarflexion (S1) 4 Good PT-OP-Q Treatments Start: 12/09/24 15:44 Freq: Status: Active Protocol: Document 12/29/24 12:59 [facility] (Rec: 12/29/24 13:45 [facility] Laptop) Gym Equipment Cable Column (Body Solid) hip abd Resistance 30 Reps/Time 10x Hip add Resistance 30 Reps/Time 10x HS curl Details dilip, unil Resistance 30, 15 Reps/Time 10x Shuttle Recovery Unilateral Squats Resistance 25 Reps/Time 10x2 Bilateral Squats Resistance 50 Reps/Time 10x2 Shuttle Balance red Details normal KEILA f/b, side bal and wt shift Reps/Duration 6 min Comments cues for minimizing UE use. Therapeutic Exercises Sitting Exercises sit to stand Reps/Minutes 4x Comments vc for knees apart Gait Training Gait Activity metronome Comments NEXT SESSION Neuro Re-Education Treatment Balance Activities foam Details fwd,side Surface blue square foam, 3 black foam pads Reps/Duration 10ft x 2 both fwd,side Comments CGA hands above bars, occasional touch PT-OP-T Assessment and Plan Start: 12/09/24 15:44 Freq: Status: Active Protocol: Document 12/29/24 12:59 [facility] (Rec: 12/29/24 13:45 [facility] Laptop) Physical Therapy Assessment Goals Four Impairment History of falls with Activities specific Balance confidence Scale 52.5 Engineer Automated Equipment Goal (LTG) Improve score to at least 75 as measure of patient improved balance confidence LTG Duration 03/12/25 Three Impairment Gait dysfunction with DGI score 10/24 Engineer Automated Equipment Goal (LTG) Improve gait as evidenced by no falls, improvement in DGI score to at least 17 as measure of decreased fall risk LTG Duration 03/12/25 Two Impairment Balance dysfunction with Miller Balance SCore 37/56 and TUG 18 sec [facility] Goal (LTG) Improve Miller Balance score to at least 45/56 and TUG to no greater than 10 sec as measures of improved functional balance and safety LTG Duration 03/12/25 One Impairment LE weakness Short Term Goal (STG) Patient to be instructed in progressive individualized HEP for purposes of addressing impairments in LE strength STG Duration 01/26/25 Engineer Automated Equipment Goal (LTG) Patient to be independent and compliant in HEP and demonstrate improvements in LE strength to at least 4+/5 throughout LTG Duration 03/12/25 Assessment Summary Assessment Instruction in use of weight machines for legs as going to start attending [employer]. Getting new cane. Has started doing Reynaldo Chi. Physical Therapy Plan Frequency and Duration Frequency of Treatment 2x/Week Duration of treatment (weeks) 12 Plan of Care Start Date 12/10/24 Plan of Care End Date 03/12/25 Therapeutic Interventions Therapeutic Interventions Gait Training,Home Exercise Program,Neuromuscular Re- education,Patient/Caregiver Education,Self-Care/Home Management,Soft Tissue Mobilization,Therapeutic Activities,Therapeutic Exercises Next Visit Focus/Plan Next Note Type Treatment Note Next Visit Plan Increase resistance by 12# on shuttle leg press, ontinue shuttle balance activities, BOSU, trial gait with metronome.
--- NOTE | 2025-01-01 09:13 | PT.OTN ---
Current Diagnoses Unspecified abnormalities of gait and mobility (01/01/25) Physical Therapy Treatment Note PT-OP-A Visit Information Start: 12/09/24 15:44 Freq: Status: Active Protocol: Document 01/01/25 08:05 AB (Rec: 01/01/25 09:12 AB Laptop) Out-Patient Physical Therapy Visit Information Visit Information Visit Type Treatment Note Visit Start Time 08:16 Visit Stop Time 09:01 Visit Number 6 Number of FORESTRY AID TECHNICIAN Visits 1 PT-OP-B Current Condition Start: 12/09/24 15:44 Freq: Status: Active Protocol: Document 12/29/24 12:59 SAK (Rec: 12/29/24 13:45 SAK Laptop) Current Condition History of Current Condition Onset Date 3+ yrs Current Complaints difficulty with walking History of Current Condition Feels like she is brain damaged, wobbles, has to think about it. has had every test known to man including pulmonology neurologist, blood testing. Found peripheral neuropathy, nothing else. Had psychotherapy, takes Lions Chirag. Symptoms recently got worse again. Cleared for Parkinson's. Had decreased Paxil, but wasn't feeling well , so increased to 10 mg. In house ok, most indoor spaces ok but tentative. Not dizzy, feels weaker than should. Has fallen 2 times; September 26 most recent, both times tripped over something she didn't see and was multitasking. Sometimes uses cane. Does water aerobics M and Th, hasn't been good with other exercising. Has to do constant cues during walking what to do, stopped walking outside. States remembering getting wrong vaccine (3rd shingles shot instead of pneumonia shot), unsure if that may have caused it. PT-OP-C Subjective Start: 12/09/24 15:44 Freq: Status: Active Protocol: Document 01/01/25 08:05 AB (Rec: 01/01/25 09:12 AB Laptop) OP-PT Subjective Patient Comments Patient Comments Patient thinks she is better. Patient initiates session sit to stand with out UE use with some difficultly start of session. Patient reports she is likes her Reynaldo Chi course. Patient reports having no pain start of session, comments L knee replacement has not felt good since she got it, and when she does have discomfort it is in the L knee. SLS L LE 1 sec right LE 2 sec without UE use start of session. PT-OP-D Balance Start: 12/09/24 15:44 Freq: Status: Active Protocol: Document 12/10/24 10:48 SAK (Rec: 12/10/24 15:40 [facility] [id number]) OP-PT Balance Assessment Sitting Balance Static Sitting Balance Ability Normal Dynamic Sitting Balance Ability Good Miller Balance Assessment Evaluation Sitting to Standing Ability Independent w/Hands Unsupported Stance Supervision- 2 minutes Sitting Unsupported, Feet on Floor Safely- 2 minutes Standing to Sitting Ability Assist, Use Legs on Chair Transfer Ability Safely, Hand Use Unsupported Stance- Eyes Closed Supervision, 10 seconds Unsupported Stance- Eyes Open Independent, 1 minute Reaching Forward Standing Safely, 5 inches Pick- Up Object From Floor Supervision Look Behind Shoulder - Standing Shifts Weight Unilateral Turning 360 Degrees Turns , < 4 secs Unsupported Stance, Alternating Feet on (I)- 8 Steps in > 20 secs Stair Unsupported Tandem Stance Balance Lost- Step/Stand Unilateral Leg Stance Unable,assist to not fall Total Score Miller Total Score (out of 56 points) 37 Diaz Fall Scale Copyright Permission PT-OP-E Functional Tests Start: 12/09/24 15:44 Freq: Status: Active Protocol: Document 12/10/24 10:48 SAK (Rec: 12/10/24 15:40 [facility] [id number]) Functional Tests Dynamic Gait Index (DGI) Score 07/16 Timed Up and Go (TUG) Score 18s PT-OP-G Mobility & Gait Start: 12/09/24 15:44 Freq: Status: Active Protocol: Document 12/10/24 10:47 SAK (Rec: 12/10/24 11:35 [facility] [id number]) OP Mobility Evaluation Transfers Sit to Stand knees together PT-OP-H Neuro Start: 12/09/24 15:44 Freq: Status: Active Protocol: Document 12/10/24 10:48 SAK (Rec: 12/10/24 15:40 [facility] [id number]) Sensation Evaluation Gross Sensation Gross Sensation WNL PT-OP-J Posture/Palpation/Skin Start: 12/09/24 15:44 Freq: Status: Active Protocol: Document 12/10/24 10:48 SAK (Rec: 12/10/24 15:40 [facility] [id number]) Posture Evaluation Position Standing Knee Posture (L) Genu Valgus,(R) Genu Valgus Ankle/Foot Posture (L) Pronated,(R) Pronated PT-OP-M Strength Start: 12/09/24 15:44 Freq: Status: Active Protocol: Document 12/10/24 10:48 SAK (Rec: 12/10/24 15:40 SAK [id number]) Hip Strength Hip Manual Muscle Testing Left Flexion (L2) 3+ Fair+ Extension (S1) 3- Fair- Abduction 4- Good- External Rotation 3+ Fair+ Internal Rotation 4- Good- Right Flexion (L2) 3+ Fair+ Extension (S1) 3- Fair- Abduction 3+ Fair+ External Rotation 3+ Fair+ Internal Rotation 4- Good- Knee Strength Knee Manual Muscle Testing dilip Flexion (S2) 4 Good Extension (L3) 4 Good Ankle/Foot Strength Ankle and Foot Manual Muscle Testing dilip Dorsiflexion (L4) 4 Good Plantarflexion (S1) 4 Good PT-OP-Q Treatments Start: 12/09/24 15:44 Freq: Status: Active Protocol: Document 01/01/25 08:05 AB (Rec: 01/01/25 09:12 AB Laptop) Gym Equipment Shuttle Recovery Unilateral Squats Resistance 37# Reps/Time X 10 R X 8 L Bilateral Squats Resistance 62 # then 75 # Reps/Time 10x2 Therapeutic Exercises Sitting Exercises seated hip add Sitting Exercise Name with blue ball Reps/Minutes 10 sec X 5 Comments VC prior to glute med active 2nd trial with level 3 band seated clam jesus alberto Sitting Exercise Name HEP Resistance L3 TB and L 4 today Reps/Minutes one min X 1 each band Comments Verbal cues Standing Exercises side stepping with band Standing Exercise Name with UE support Side bilateral Resistance first set level 3 second set level 4 band Reps/Minutes 10 feet left and right X 3 HC stretch Standing Exercise Name gastroc and soleus Equipment Used ARY Reps/Minutes 1x60 also with step through X10 Comments Verbal cues heel raise, toe raise Standing Exercise Name Heel raise Equipment Used parallel bars Reps/Minutes X10 X2 Comments verbal cues to lower slowly Gait Training Gait Activity metronome Device Used SPC Distance/Duration 8 min Comments Pt into session with New SPC with larger base to prevent cane tipping adjusted for height. Pt to all of base must be on floor when stepping and this does require slower pace . New cane not used for metronome. Pt ambulates at 92 BPM with SPC so practice is at 96 BPM Neuro Re-Education Treatment Balance Activities step up taps standing on foam Surface foam Equipment 6 inch step Reps/Duration X10 each LE Comments CGA BOSU Details 1. marching blue side 2. AP and lat WS black side 3. Mini squat black side Reps/Duration X10 Comments CGA hands above bars once on BOSU PT-OP-T Assessment and Plan Start: 12/09/24 15:44 Freq: Status: Active Protocol: Document 01/01/25 08:05 AB (Rec: 01/01/25 09:12 AB Laptop) Physical Therapy Assessment Goals Four Impairment History of falls with Activities specific Balance confidence Scale 52.5 Semiconductor Processing Technician Goal (LTG) Improve score to at least 75 as measure of patient improved balance confidence LTG Duration 03/12/25 Three Impairment Gait dysfunction with DGI score 10/24 Semiconductor Processing Technician Goal (LTG) Improve gait as evidenced by no falls, improvement in DGI score to at least 17 as measure of decreased fall risk LTG Duration 03/12/25 Two Impairment Balance dysfunction with Miller Balance SCore 37/56 and TUG 18 sec Semiconductor Processing Technician Goal (LTG) Improve Miller Balance score to at least 45/56 and TUG to no greater than 10 sec as measures of improved functional balance and safety LTG Duration 03/12/25 One Impairment LE weakness Short Term Goal (STG) Patient to be instructed in progressive individualized HEP for purposes of addressing impairments in LE strength STG Duration 01/26/25 Semiconductor Processing Technician Goal (LTG) Patient to be independent and compliant in HEP and demonstrate improvements in LE strength to at least 4+/5 throughout LTG Duration 03/12/25 Assessment Summary Assessment SLS continues to be limited. Good marcela to exercises and metronome ambulation, but did have medial knee joint discomfort L knee with shuttle press single leg this session . Physical Therapy Plan Frequency and Duration Frequency of Treatment 2x/Week Duration of treatment (weeks) 12 Plan of Care Start Date 12/10/24 Plan of Care End Date 03/12/25 Next Visit Focus/Plan Next Note Type Treatment Note Next Visit Plan Reassess marcela to Shuttle single LE at 37#, continue shuttle balance activities, BOSU, Continue gait with metronome, start at 96 increase to 98.
--- NOTE | 2025-01-06 16:21 | PT.OTN ---
Current Diagnoses Unspecified abnormalities of gait and mobility (01/06/25) Physical Therapy Treatment Note PT-OP-A Visit Information Start: 12/09/24 15:44 Freq: Status: Active Protocol: Document 01/06/25 11:30 SAK (Rec: 01/06/25 12:24 SAK Laptop) Out-Patient Physical Therapy Visit Information Visit Information Visit Type Treatment Note Visit Start Time 11:31 Visit Stop Time 12:16 Visit Number 7 Number of BANKRUPTCY JUDGE Visits 0 Evaluation Information Evaluation Date 12/10/24 PT-OP-B Current Condition Start: 12/09/24 15:44 Freq: Status: Active Protocol: Document 01/06/25 11:30 SAK (Rec: 01/06/25 12:24 SAK Laptop) Current Condition History of Current Condition Onset Date 3+ yrs Current Complaints difficulty with walking History of Current Condition Feels like she is brain damaged, wobbles, has to think about it. has had every test known to man including pulmonology neurologist, blood testing. Found peripheral neuropathy, nothing else. Had psychotherapy, takes Lions Chirag. Symptoms recently got worse again. Cleared for Parkinson's. Had decreased Paxil, but wasn't feeling well , so increased to 10 mg. In house ok, most indoor spaces ok but tentative. Not dizzy, feels weaker than should. Has fallen 2 times; September 26 most recent, both times tripped over something she didn't see and was multitasking. Sometimes uses cane. Does water aerobics M and Th, hasn't been good with other exercising. Has to do constant cues during walking what to do, stopped walking outside. States remembering getting wrong vaccine (3rd shingles shot instead of pneumonia shot), unsure if that may have caused it. PT-OP-C Subjective Start: 12/09/24 15:44 Freq: Status: Active Protocol: Document 01/06/25 11:30 SAK (Rec: 01/06/25 12:24 SAK Laptop) OP-PT Subjective Patient Comments Patient Comments Still doing Reynaldo Chi, going to get smaller base cane PT-OP-D Balance Start: 12/09/24 15:44 Freq: Status: Active Protocol: Document 12/10/24 10:48 SAK (Rec: 12/10/24 15:40 SAK [id number]) OP-PT Balance Assessment Sitting Balance Static Sitting Balance Ability Normal Dynamic Sitting Balance Ability Good Miller Balance Assessment Evaluation Sitting to Standing Ability Independent w/Hands Unsupported Stance Supervision- 2 minutes Sitting Unsupported, Feet on Floor Safely- 2 minutes Standing to Sitting Ability Assist, Use Legs on Chair Transfer Ability Safely, Hand Use Unsupported Stance- Eyes Closed Supervision, 10 seconds Unsupported Stance- Eyes Open Independent, 1 minute Reaching Forward Standing Safely, 5 inches Pick- Up Object From Floor Supervision Look Behind Shoulder - Standing Shifts Weight Unilateral Turning 360 Degrees Turns , < 4 secs Unsupported Stance, Alternating Feet on (I)- 8 Steps in > 20 secs Stair Unsupported Tandem Stance Balance Lost- Step/Stand Unilateral Leg Stance Unable,assist to not fall Total Score Miller Total Score (out of 56 points) 37 Diaz Fall Scale Copyright Permission PT-OP-E Functional Tests Start: 12/09/24 15:44 Freq: Status: Active Protocol: Document 12/10/24 10:48 SAK (Rec: 12/10/24 15:40 SAK [id number]) Functional Tests Dynamic Gait Index (DGI) Score 07/16 Timed Up and Go (TUG) Score 18s PT-OP-G Mobility & Gait Start: 12/09/24 15:44 Freq: Status: Active Protocol: Document 12/10/24 10:47 SAK (Rec: 12/10/24 11:35 SAK [id number]) OP Mobility Evaluation Transfers Sit to Stand knees together PT-OP-H Neuro Start: 12/09/24 15:44 Freq: Status: Active Protocol: Document 12/10/24 10:48 SAK (Rec: 12/10/24 15:40 SAK [id number]) Sensation Evaluation Gross Sensation Gross Sensation WNL PT-OP-J Posture/Palpation/Skin Start: 12/09/24 15:44 Freq: Status: Active Protocol: Document 12/10/24 10:48 SAK (Rec: 12/10/24 15:40 SAK [id number]) Posture Evaluation Position Standing Knee Posture (L) Genu Valgus,(R) Genu Valgus Ankle/Foot Posture (L) Pronated,(R) Pronated PT-OP-M Strength Start: 12/09/24 15:44 Freq: Status: Active Protocol: Document 12/10/24 10:48 SAK (Rec: 12/10/24 15:40 [facility] [id number]) Hip Strength Hip Manual Muscle Testing Left Flexion (L2) 3+ Fair+ Extension (S1) 3- Fair- Abduction 4- Good- External Rotation 3+ Fair+ Internal Rotation 4- Good- Right Flexion (L2) 3+ Fair+ Extension (S1) 3- Fair- Abduction 3+ Fair+ External Rotation 3+ Fair+ Internal Rotation 4- Good- Knee Strength Knee Manual Muscle Testing dilip Flexion (S2) 4 Good Extension (L3) 4 Good Ankle/Foot Strength Ankle and Foot Manual Muscle Testing dilip Dorsiflexion (L4) 4 Good Plantarflexion (S1) 4 Good PT-OP-Q Treatments Start: 12/09/24 15:44 Freq: Status: Active Protocol: Document 01/06/25 11:30 [facility] (Rec: 01/06/25 12:24 [facility] Laptop) Gait Training Gait Activity 4WW Level of Assistance CGA, verbal cues Surface carpet, tile, sidewalk Distance/Duration 19 min Comments indoors and outdoors on sidewalk, cues for correct sizing, use of brakes and brake locks, safe sitting on, turning, walking close to walker challenged gait Description hallway Device Used gait belt Level of Assistance CG to min A Surface firm Distance/Duration 11 min Treatment Focus balance, gait safety Comments relaxed arm swing, alternating speeds, marching, sidestepping, backward walking , head turns, heel walk, toe walk, tandem gait Neuro Re-Education Treatment Balance Activities obstacle course Equipment foam pads and pods, large mat, hurdles, 4 box Comments CGA to min assist first with cane, then no device, Self-Care/Home Management Treatment Education Other Education pt to schedule more PT appointments PT-OP-T Assessment and Plan Start: 12/09/24 15:44 Freq: Status: Active Protocol: Document 01/06/25 11:30 [facility] (Rec: 01/06/25 12:24 [facility] Laptop) Physical Therapy Assessment Goals Four Impairment History of falls with Activities specific Balance confidence Scale 52.5 Snf Goal (LTG) Improve score to at least 75 as measure of patient improved balance confidence LTG Duration 03/12/25 Three Impairment Gait dysfunction with DGI score 10/24 Computer Aide Goal (LTG) Improve gait as evidenced by no falls, improvement in DGI score to at least 17 as measure of decreased fall risk LTG Duration 03/12/25 Two Impairment Balance dysfunction with Miller Balance SCore 37/56 and TUG 18 sec Snf Goal (LTG) Improve Miller Balance score to at least 45/56 and TUG to no greater than 10 sec as measures of improved functional balance and safety LTG Duration 03/12/25 One Impairment LE weakness Short Term Goal (STG) Patient to be instructed in progressive individualized HEP for purposes of addressing impairments in LE strength STG Duration 01/26/25 Snf Goal (LTG) Patient to be independent and compliant in HEP and demonstrate improvements in LE strength to at least 4+/5 throughout LTG Duration 03/12/25 Assessment Summary Assessment Patient educated in correct use of 4WW for option walking outside for safety; pt purchased one for her. After education demonstrated good understanding of safe use of brakes during walking and locks when going to sit. Continue neuro re-ed and gait training uneven ground. Able to increase challenge with good marcela. Physical Therapy Plan Frequency and Duration Frequency of Treatment 2x/Week Duration of treatment (weeks) 12 Plan of Care Start Date 12/10/24 Plan of Care End Date 03/12/25 Therapeutic Interventions Therapeutic Interventions Gait Training,Home Exercise Program,Neuromuscular Re- education,Patient/Caregiver Education,Self-Care/Home Management,Soft Tissue Mobilization,Therapeutic Activities,Therapeutic Exercises Next Visit Focus/Plan Next Note Type Treatment Note Next Visit Plan Reassess marcela to Shuttle single LE at 37#, continue shuttle balance activities, BOSU, Continue gait with metronome, start at 96 increase to 98.
--- NOTE | 2025-01-11 10:32 | PT.OTN ---
Current Diagnoses Unspecified abnormalities of gait and mobility (01/11/25) Physical Therapy Treatment Note PT-OP-A Visit Information Start: 12/09/24 15:44 Freq: Status: Active Protocol: Document 01/11/25 09:49 SAK (Rec: 01/11/25 10:32 SAK Laptop) Out-Patient Physical Therapy Visit Information Visit Information Visit Type Treatment Note Visit Start Time 09:43 Visit Stop Time 10:30 Visit Number [address] TECH Visits 0 Evaluation Information Evaluation Date 12/10/24 PT-OP-B Current Condition Start: 12/09/24 15:44 Freq: Status: Active Protocol: Document 01/11/25 09:49 SAK (Rec: 01/11/25 10:32 SAK Laptop) Current Condition History of Current Condition Onset Date 3+ yrs Current Complaints difficulty with walking History of Current Condition Feels like she is brain damaged, wobbles, has to think about it. has had every test known to man including pulmonology neurologist, blood testing. Found peripheral neuropathy, nothing else. Had psychotherapy, takes Lions Chirag. Symptoms recently got worse again. Cleared for Parkinson's. Had decreased Paxil, but wasn't feeling well , so increased to 10 mg. In house ok, most indoor spaces ok but tentative. Not dizzy, feels weaker than should. Has fallen 2 times; September 26 most recent, both times tripped over something she didn't see and was multitasking. Sometimes uses cane. Does water aerobics M and Th, hasn't been good with other exercising. Has to do constant cues during walking what to do, stopped walking outside. States remembering getting wrong vaccine (3rd shingles shot instead of pneumonia shot), unsure if that may have caused it. PT-OP-C Subjective Start: 12/09/24 15:44 Freq: Status: Active Protocol: Document 01/11/25 09:49 SAK (Rec: 01/11/25 10:32 SAK Laptop) OP-PT Subjective Patient Comments Patient Comments No new c/o. Did her exercises at home. Doesn't feel like her balance is getting better. Went to the gym Saturday since no PT; did treadmill and hip machine, leg press not available. PT-OP-D Balance Start: 12/09/24 15:44 Freq: Status: Active Protocol: Document 12/10/24 10:48 SAK (Rec: 12/10/24 15:40 [facility] [id number]) OP-PT Balance Assessment Sitting Balance Static Sitting Balance Ability Normal Dynamic Sitting Balance Ability Good Miller Balance Assessment Evaluation Sitting to Standing Ability Independent w/Hands Unsupported Stance Supervision- 2 minutes Sitting Unsupported, Feet on Floor Safely- 2 minutes Standing to Sitting Ability Assist, Use Legs on Chair Transfer Ability Safely, Hand Use Unsupported Stance- Eyes Closed Supervision, 10 seconds Unsupported Stance- Eyes Open Independent, 1 minute Reaching Forward Standing Safely, 5 inches Pick- Up Object From Floor Supervision Look Behind Shoulder - Standing Shifts Weight Unilateral Turning 360 Degrees Turns , < 4 secs Unsupported Stance, Alternating Feet on (I)- 8 Steps in > 20 secs Stair Unsupported Tandem Stance Balance Lost- Step/Stand Unilateral Leg Stance Unable,assist to not fall Total Score Miller Total Score (out of 56 points) 37 Diaz Fall Scale Copyright Permission PT-OP-E Functional Tests Start: 12/09/24 15:44 Freq: Status: Active Protocol: Document 12/10/24 10:48 SAK (Rec: 12/10/24 15:40 [facility] [id number]) Functional Tests Dynamic Gait Index (DGI) Score 07/16 Timed Up and Go (TUG) Score 18s PT-OP-G Mobility & Gait Start: 12/09/24 15:44 Freq: Status: Active Protocol: Document 12/10/24 10:47 SAK (Rec: 12/10/24 11:35 [facility] [id number]) OP Mobility Evaluation Transfers Sit to Stand knees together PT-OP-H Neuro Start: 12/09/24 15:44 Freq: Status: Active Protocol: Document 12/10/24 10:48 SAK (Rec: 12/10/24 15:40 [facility] [id number]) Sensation Evaluation Gross Sensation Gross Sensation WNL PT-OP-J Posture/Palpation/Skin Start: 12/09/24 15:44 Freq: Status: Active Protocol: Document 12/10/24 10:48 SAK (Rec: 12/10/24 15:40 [facility] [id number]) Posture Evaluation Position Standing Knee Posture (L) Genu Valgus,(R) Genu Valgus Ankle/Foot Posture (L) Pronated,(R) Pronated PT-OP-M Strength Start: 12/09/24 15:44 Freq: Status: Active Protocol: Document 12/10/24 10:48 SAK (Rec: 12/10/24 15:40 [facility] [id number]) Hip Strength Hip Manual Muscle Testing Left Flexion (L2) 3+ Fair+ Extension (S1) 3- Fair- Abduction 4- Good- External Rotation 3+ Fair+ Internal Rotation 4- Good- Right Flexion (L2) 3+ Fair+ Extension (S1) 3- Fair- Abduction 3+ Fair+ External Rotation 3+ Fair+ Internal Rotation 4- Good- Knee Strength Knee Manual Muscle Testing dilip Flexion (S2) 4 Good Extension (L3) 4 Good Ankle/Foot Strength Ankle and Foot Manual Muscle Testing dilip Dorsiflexion (L4) 4 Good Plantarflexion (S1) 4 Good PT-OP-Q Treatments Start: 12/09/24 15:44 Freq: Status: Active Protocol: Document 01/11/25 09:49 SAK (Rec: 01/11/25 10:32 [facility] Laptop) Cardio Equipment Recumbent Stepper (Sci-Fit) Duration (Minutes) 7 Resistance 3 Seat Position 11 Other warm up Gym Equipment Shuttle Recovery Unilateral Squats Resistance 37# Reps/Time X 10 R X 8 L Bilateral Squats Resistance 62 # then 75 # Reps/Time 10x2 (start 75# next session) Gait Training Gait Activity 4WW Comments indoors and outdoors on sidewalk, cues for correct sizing, use of brakes and brake locks, safe sitting on, turning, walking close to walker metronome Device Used none Distance/Duration 2 min Comments 88, then 92 bpm 150 ft challenged gait Description hallway Device Used gait belt Level of Assistance CG to min A Surface firm Distance/Duration 11 min Treatment Focus balance, gait safety Comments relaxed arm swing, alternating speeds, marching, sidestepping, backward walking , head turns, heel walk, toe walk, tandem gait Neuro Re-Education Treatment Balance Activities BOSU Details 1. marching blue side 2. AP and lat WS black side 3. Mini squat black side Reps/Duration X10 Comments CGA hands above bars once on BOSU PT-OP-T Assessment and Plan Start: 12/09/24 15:44 Freq: Status: Active Protocol: Document 01/11/25 09:49 [facility] (Rec: 01/11/25 10:32 [facility] Laptop) Physical Therapy Assessment Goals Four Impairment History of falls with Activities specific Balance confidence Scale 52.5 Retirement Goal (LTG) Improve score to at least 75 as measure of patient improved balance confidence LTG Duration 03/12/25 Three Impairment Gait dysfunction with DGI score 10/24 Probate Lawyer Goal (LTG) Improve gait as evidenced by no falls, improvement in DGI score to at least 17 as measure of decreased fall risk LTG Duration 03/12/25 Two Impairment Balance dysfunction with Miller Balance SCore 37/56 and TUG 18 sec Retirement Goal (LTG) Improve Miller Balance score to at least 45/56 and TUG to no greater than 10 sec as measures of improved functional balance and safety LTG Duration 03/12/25 One Impairment LE weakness Short Term Goal (STG) Patient to be instructed in progressive individualized HEP for purposes of addressing impairments in LE strength STG Duration 01/26/25 Retirement Goal (LTG) Patient to be independent and compliant in HEP and demonstrate improvements in LE strength to at least 4+/5 throughout LTG Duration 03/12/25 Assessment Summary Assessment Improved gait with metronome, no need for assistive device; SBA to CGA, noting improvement in functional balance, no freezing. Can now do SLS and tandem stand for 1-2 sec. Physical Therapy Plan Frequency and Duration Frequency of Treatment 2x/Week Duration of treatment (weeks) 12 Plan of Care Start Date 12/10/24 Plan of Care End Date 03/12/25 Therapeutic Interventions Therapeutic Interventions Gait Training,Home Exercise Program,Neuromuscular Re- education,Patient/Caregiver Education,Self-Care/Home Management,Soft Tissue Mobilization,Therapeutic Activities,Therapeutic Exercises Next Visit Focus/Plan Next Note Type Treatment Note Next Visit Plan STart shuttle leg press at 75# dilip, consider trial 50# single leg. Increase bpm metronome.
--- NOTE | 2025-01-13 10:40 | PT.OTN ---
Current Diagnoses Unspecified abnormalities of gait and mobility (01/13/25) Physical Therapy Treatment Note PT-OP-A Visit Information Start: 12/09/24 15:44 Freq: Status: Active Protocol: Document 01/13/25 08:53 AB (Rec: 01/13/25 09:47 AB Laptop) Out-Patient Physical Therapy Visit Information Visit Information Visit Type Treatment Note Visit Start Time 09:02 Visit Stop Time 09:44 Visit Number 9 Number of MEAL GRINDER TENDER Visits 1 Evaluation Information Evaluation Date 12/10/24 PT-OP-B Current Condition Start: 12/09/24 15:44 Freq: Status: Active Protocol: Document 01/11/25 09:49 SAK (Rec: 01/11/25 10:32 SAK Laptop) Current Condition History of Current Condition Onset Date 3+ yrs Current Complaints difficulty with walking History of Current Condition Feels like she is brain damaged, wobbles, has to think about it. has had every test known to man including pulmonology neurologist, blood testing. Found peripheral neuropathy, nothing else. Had psychotherapy, takes Lions Chirag. Symptoms recently got worse again. Cleared for Parkinson's. Had decreased Paxil, but wasn't feeling well , so increased to 10 mg. In house ok, most indoor spaces ok but tentative. Not dizzy, feels weaker than should. Has fallen 2 times; September 26 most recent, both times tripped over something she didn't see and was multitasking. Sometimes uses cane. Does water aerobics M and Th, hasn't been good with other exercising. Has to do constant cues during walking what to do, stopped walking outside. States remembering getting wrong vaccine (3rd shingles shot instead of pneumonia shot), unsure if that may have caused it. PT-OP-C Subjective Start: 12/09/24 15:44 Freq: Status: Active Protocol: Document 01/13/25 08:53 [facility] (Rec: 01/13/25 09:47 [facility] Laptop) OP-PT Subjective Patient Comments Patient Comments Patient reports she already did her sit to stand exercise and heel raises this morning. Patient reports having no pain start of session, comments when she does have pain it occurs medial L knee. PT-OP-D Balance Start: 12/09/24 15:44 Freq: Status: Active Protocol: Document 12/10/24 10:48 SAK (Rec: 12/10/24 15:40 [facility] [id number]) OP-PT Balance Assessment Sitting Balance Static Sitting Balance Ability Normal Dynamic Sitting Balance Ability Good Miller Balance Assessment Evaluation Sitting to Standing Ability Independent w/Hands Unsupported Stance Supervision- 2 minutes Sitting Unsupported, Feet on Floor Safely- 2 minutes Standing to Sitting Ability Assist, Use Legs on Chair Transfer Ability Safely, Hand Use Unsupported Stance- Eyes Closed Supervision, 10 seconds Unsupported Stance- Eyes Open Independent, 1 minute Reaching Forward Standing Safely, 5 inches Pick- Up Object From Floor Supervision Look Behind Shoulder - Standing Shifts Weight Unilateral Turning 360 Degrees Turns , < 4 secs Unsupported Stance, Alternating Feet on (I)- 8 Steps in > 20 secs Stair Unsupported Tandem Stance Balance Lost- Step/Stand Unilateral Leg Stance Unable,assist to not fall Total Score Miller Total Score (out of 56 points) 37 Diaz Fall Scale Copyright Permission PT-OP-E Functional Tests Start: 12/09/24 15:44 Freq: Status: Active Protocol: Document 12/10/24 10:48 SAK (Rec: 12/10/24 15:40 [facility] [id number]) Functional Tests Dynamic Gait Index (DGI) Score 07/16 Timed Up and Go (TUG) Score 18s PT-OP-G Mobility & Gait Start: 12/09/24 15:44 Freq: Status: Active Protocol: Document 12/10/24 10:47 SAK (Rec: 12/10/24 11:35 [facility] [id number]) OP Mobility Evaluation Transfers Sit to Stand knees together PT-OP-H Neuro Start: 12/09/24 15:44 Freq: Status: Active Protocol: Document 12/10/24 10:48 [facility]AK (Rec: 12/10/24 15:40 [facility] [id number]) Sensation Evaluation Gross Sensation Gross Sensation WNL PT-OP-J Posture/Palpation/Skin Start: 12/09/24 15:44 Freq: Status: Active Protocol: Document 12/10/24 10:48 [facility]AK (Rec: 12/10/24 15:40 [facility] [id number]) Posture Evaluation Position Standing Knee Posture (L) Genu Valgus,(R) Genu Valgus Ankle/Foot Posture (L) Pronated,(R) Pronated PT-OP-M Strength Start: 12/09/24 15:44 Freq: Status: Active Protocol: Document 12/10/24 10:48 [facility] (Rec: 12/10/24 15:40 [facility] [id number]) Hip Strength Hip Manual Muscle Testing Left Flexion (L2) 3+ Fair+ Extension (S1) 3- Fair- Abduction 4- Good- External Rotation 3+ Fair+ Internal Rotation 4- Good- Right Flexion (L2) 3+ Fair+ Extension (S1) 3- Fair- Abduction 3+ Fair+ External Rotation 3+ Fair+ Internal Rotation 4- Good- Knee Strength Knee Manual Muscle Testing dilip Flexion (S2) 4 Good Extension (L3) 4 Good Ankle/Foot Strength Ankle and Foot Manual Muscle Testing dilip Dorsiflexion (L4) 4 Good Plantarflexion (S1) 4 Good PT-OP-Q Treatments Start: 12/09/24 15:44 Freq: Status: Active Protocol: Document 01/13/25 08:53 [facility] (Rec: 01/13/25 09:47 AB Laptop) Gym Equipment Shuttle Recovery Unilateral Squats Resistance 50# Reps/Time X 10 Bilateral Squats Resistance 75# Reps/Time X 15 X 2 Therapeutic Exercises Sitting Exercises seated hip add Sitting Exercise Name with blue ball Reps/Minutes 15 sec X 5 and one one min hold seated clam jesus alberto Sitting Exercise Name HEP Resistance L 4 today Reps/Minutes one min X 1 then X 10 without hold Comments Verbal cues Standing Exercises calf stretches on BOSU Standing Exercise Name with UE support Side bilateral Reps/Minutes one minute hold gastroc, X 10 step through Comments verbal and visual cues monster walk Resistance level 4 band above knees Reps/Minutes 10feet X 6 fwd X 2 retro with UE use side stepping with band Standing Exercise Name with UE support Side bilateral Resistance level 4 above knees Reps/Minutes 10 feet left and right X 3 Neuro Re-Education Treatment Balance Activities wall fall Details Pillow behind back Reps/Duration X10 Comments CGA and verbal cues obstacle course Equipment foam pads and pods, large mat, hurdles, 4 box cones, weaving then shrimp picker Comments CGA to min assist first with cane, then no device X 2 SLS Reps/Duration 2-3X 3 each LE Comments CGA withotu UE use BOSU Details 1. marching blue side 2. AP and lat WS black side 3. Mini squat black side Reps/Duration X10 Comments CGA hands above bars once on BOSU PT-OP-T Assessment and Plan Start: 12/09/24 15:44 Freq: Status: Active Protocol: Document 01/13/25 08:53 [facility] (Rec: 01/13/25 09:47 AB Laptop) Physical Therapy Assessment Goals Four Impairment History of falls with Activities specific Balance confidence Scale 52.5 Long-Term Goal (LTG) Improve score to at least 75 as measure of patient improved balance confidence LTG Duration 03/12/25 Three Impairment Gait dysfunction with DGI score 10/24 Long-Term Goal (LTG) Improve gait as evidenced by no falls, improvement in DGI score to at least 17 as measure of decreased fall risk LTG Duration 03/12/25 Two Impairment Balance dysfunction with Miller Balance SCore 37/56 and TUG 18 sec Long-Term Goal (LTG) Improve Miller Balance score to at least 45/56 and TUG to no greater than 10 sec as measures of improved functional balance and safety LTG Duration 03/12/25 One Impairment LE weakness Short Term Goal (STG) Patient to be instructed in progressive individualized HEP for purposes of addressing impairments in LE strength STG Duration 01/26/25 Long-Term Goal (LTG) Patient to be independent and compliant in HEP and demonstrate improvements in LE strength to at least 4+/5 throughout LTG Duration 03/12/25 Assessment Summary Assessment SLS L LE continues to be less than one sec to one sec R up to 5 sec post glute activation exercise. Amisha reports having no pain end of session. Physical Therapy Plan Frequency and Duration Frequency of Treatment 2x/Week Duration of treatment (weeks) 12 Plan of Care Start Date 12/10/24 Plan of Care End Date 03/12/25 Next Visit Focus/Plan Next Note Type Progress Note Next Visit Plan Increased bpm metronome, PN due
--- NOTE | 2025-01-19 16:45 | PT.OTN ---
Current Diagnoses Unspecified abnormalities of gait and mobility (01/19/25) Physical Therapy Treatment Note PT-OP-A Visit Information Start: 12/09/24 15:44 Freq: Status: Active Protocol: Document 01/19/25 13:03 SAK (Rec: 01/19/25 13:46 SAK Laptop) Out-Patient Physical Therapy Visit Information Visit Information Visit Type Treatment Note Visit Start Time 13:02 Visit Stop Time 13:45 Visit Number 10 Number of CLOTH HANDLER Visits 0 PT-OP-B Current Condition Start: 12/09/24 15:44 Freq: Status: Active Protocol: Document 01/19/25 13:03 SAK (Rec: 01/19/25 13:46 SAK Laptop) Current Condition History of Current Condition Onset Date 3+ yrs Current Complaints difficulty with walking History of Current Condition Feels like she is brain damaged, wobbles, has to think about it. has had every test known to man including pulmonology neurologist, blood testing. Found peripheral neuropathy, nothing else. Had psychotherapy, takes Lions Chirag. Symptoms recently got worse again. Cleared for Parkinson's. Had decreased Paxil, but wasn't feeling well , so increased to 10 mg. In house ok, most indoor spaces ok but tentative. Not dizzy, feels weaker than should. Has fallen 2 times; September 26 most recent, both times tripped over something she didn't see and was multitasking. Sometimes uses cane. Does water aerobics M and Th, hasn't been good with other exercising. Has to do constant cues during walking what to do, stopped walking outside. States remembering getting wrong vaccine (3rd shingles shot instead of pneumonia shot), unsure if that may have caused it. PT-OP-C Subjective Start: 12/09/24 15:44 Freq: Status: Active Protocol: Document 01/19/25 13:03 SAK (Rec: 01/19/25 13:46 SAK Laptop) OP-PT Subjective Patient Comments Patient Comments No new c/o. Has been doing the HEP more, keeping up with the Reynaldo Chi PT-OP-D Balance Start: 12/09/24 15:44 Freq: Status: Active Protocol: Document 12/10/24 10:48 SAK (Rec: 12/10/24 15:40 [facility] [id number]) OP-PT Balance Assessment Sitting Balance Static Sitting Balance Ability Normal Dynamic Sitting Balance Ability Good Miller Balance Assessment Evaluation Sitting to Standing Ability Independent w/Hands Unsupported Stance Supervision- 2 minutes Sitting Unsupported, Feet on Floor Safely- 2 minutes Standing to Sitting Ability Assist, Use Legs on Chair Transfer Ability Safely, Hand Use Unsupported Stance- Eyes Closed Supervision, 10 seconds Unsupported Stance- Eyes Open Independent, 1 minute Reaching Forward Standing Safely, 5 inches Pick- Up Object From Floor Supervision Look Behind Shoulder - Standing Shifts Weight Unilateral Turning 360 Degrees Turns , < 4 secs Unsupported Stance, Alternating Feet on (I)- 8 Steps in > 20 secs Stair Unsupported Tandem Stance Balance Lost- Step/Stand Unilateral Leg Stance Unable,assist to not fall Total Score Miller Total Score (out of 56 points) 37 Diaz Fall Scale Copyright Permission PT-OP-E Functional Tests Start: 12/09/24 15:44 Freq: Status: Active Protocol: Document 12/10/24 10:48 SAK (Rec: 12/10/24 15:40 [facility] [id number]) Functional Tests Dynamic Gait Index (DGI) Score 07/16 Timed Up and Go (TUG) Score 18s PT-OP-G Mobility & Gait Start: 12/09/24 15:44 Freq: Status: Active Protocol: Document 12/10/24 10:47 SAK (Rec: 12/10/24 11:35 SAK [id number]) OP Mobility Evaluation Transfers Sit to Stand knees together PT-OP-H Neuro Start: 12/09/24 15:44 Freq: Status: Active Protocol: Document 12/10/24 10:48 SAK (Rec: 12/10/24 15:40 SAK [id number]) Sensation Evaluation Gross Sensation Gross Sensation WNL PT-OP-J Posture/Palpation/Skin Start: 12/09/24 15:44 Freq: Status: Active Protocol: Document 12/10/24 10:48 SAK (Rec: 12/10/24 15:40 SAK [id number]) Posture Evaluation Position Standing Knee Posture (L) Genu Valgus,(R) Genu Valgus Ankle/Foot Posture (L) Pronated,(R) Pronated PT-OP-M Strength Start: 12/09/24 15:44 Freq: Status: Active Protocol: Document 12/10/24 10:48 SAK (Rec: 12/10/24 15:40 SAK [id number]) Hip Strength Hip Manual Muscle Testing Left Flexion (L2) 3+ Fair+ Extension (S1) 3- Fair- Abduction 4- Good- External Rotation 3+ Fair+ Internal Rotation 4- Good- Right Flexion (L2) 3+ Fair+ Extension (S1) 3- Fair- Abduction 3+ Fair+ External Rotation 3+ Fair+ Internal Rotation 4- Good- Knee Strength Knee Manual Muscle Testing dilip Flexion (S2) 4 Good Extension (L3) 4 Good Ankle/Foot Strength Ankle and Foot Manual Muscle Testing dilip Dorsiflexion (L4) 4 Good Plantarflexion (S1) 4 Good PT-OP-Q Treatments Start: 12/09/24 15:44 Freq: Status: Active Protocol: Document 01/19/25 13:03 [facility] (Rec: 01/19/25 13:46 [facility] Laptop) Therapeutic Exercises Supine Exercises bridge Reps/Minutes 10x SLR Reps/Minutes 10x Comments cues for correct technique hip ab Reps/Minutes 10x Comments cues for correct technique Manual Therapy Treatment Other Other Manual Treatments MMT dilip LE's Neuro Re-Education Treatment Balance Activities balance testing Comments TUG, Miller, DGI SLS Reps/Duration 2-3X 3 each LE Comments CGA withotu UE use BOSU Details 1. marching blue side 2. AP and lat WS black side 3. Mini squat black side Reps/Duration X10 Comments CGA hands above bars once on BOSU PT-OP-T Assessment and Plan Start: 12/09/24 15:44 Freq: Status: Active Protocol: Document 01/19/25 13:03 [facility] (Rec: 01/19/25 13:46 [facility] Laptop) Physical Therapy Assessment Goals Four Impairment History of falls with Activities specific Balance confidence Scale 52.5 Senior Care Goal (LTG) Improve score to at least 75 as measure of patient improved balance confidence 01/19/25; no recent falls. ABC score 58% LTG Duration 03/12/25 Three Impairment Gait dysfunction with DGI score 10/24 Senior Care Goal (LTG) Improve gait as evidenced by no falls, improvement in DGI score to at least 17 as measure of decreased fall risk 01/19/25: no recent falls. DGI improved to 14/24 LTG Duration 03/12/25 Two Impairment Balance dysfunction with Miller Balance SCore 37/56 and TUG 18 sec Senior Care Goal (LTG) Improve Miller Balance score to at least 45/56 and TUG to no greater than 10 sec as measures of improved functional balance and safety 01/19/25: TUG 15 sec, Miller 41/ 56 LTG Duration 03/12/25 One Impairment LE weakness Short Term Goal (STG) Patient to be instructed in progressive individualized HEP for purposes of addressing impairments in LE strength 01/19/25: goal met STG Duration goal met Senior Care Goal (LTG) Patient to be independent and compliant in HEP and demonstrate improvements in LE strength to at least 4+/5 throughout LTG Duration 03/12/25 Progress Towards Goals Progress Towards Goals Progressing Toward Goals Assessment Summary Assessment Good progress in all goal areas, patient noting improvement in gait and balance. Continues with HEP ( updated today) and Reynaldo Chi. Physical Therapy Plan Frequency and Duration Frequency of Treatment 2x/Week Duration of treatment (weeks) 12 Plan of Care Start Date 12/10/24 Plan of Care End Date 03/12/25 Therapeutic Interventions Therapeutic Interventions Gait Training,Home Exercise Program,Neuromuscular Re- education,Patient/Caregiver Education,Self-Care/Home Management,Soft Tissue Mobilization,Therapeutic Activities,Therapeutic Exercises Next Visit Focus/Plan Next Note Type Progress Note Next Visit Plan Increased bpm metronome, continue to progress balance activities. Try step-outs all directions to challenge functional balance.
--- NOTE | 2025-01-27 10:08 | PT.OTN ---
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 has had every test known to man including pulmonology neurologist, blood testing. Found peripheral neuropathy, nothing else. Had psychotherapy, takes Lijarad Chirag. Symptoms recently got worse again. Cleared for Parkinson's. Had decreased Paxil, but wasn't feeling well , so increased to 10 mg. In house ok, most indoor spaces ok but tentative. Not dizzy, feels weaker than should. Has fallen 2 times; September 26 most recent, both times tripped over something she didn't see and was multitasking. Sometimes uses cane. Does water aerobics M and , hasn't been good with other exercising. Has to do constant cues during walking what to do, stopped walking outside. States remembering getting wrong vaccine (3rd shingles shot instead of pneumonia shot), unsure if that may have caused it. PT-OP-C Subjective Start: 12/09/24 15:44 Freq: Status: Active Protocol: Document 01/27/25 07:25 AB (Rec: 01/27/25 10:03 AB Laptop) OP-PT Subjective Patient Comments Patient Comments Patient reports she is good, some days she feels exceptionally strong. Patient reports she quit Reynaldo Chi, it was raising her blood pressure as she could not do it well. SLS 1 sec L 3 sec R LE without UE use start of session PT-OP-D Balance Start: 12/09/24 15:44 Freq: Status: Active Protocol: Document 12/10/24 10:48 SAK (Rec: 12/10/24 15:40 SAK [id number]) OP-PT Balance Assessment Sitting Balance Static Sitting Balance Ability Normal Dynamic Sitting Balance Ability Good Miller Balance Assessment Evaluation Sitting to Standing Ability Independent w/Hands Unsupported Stance Supervision- 2 minutes Sitting Unsupported, Feet on Floor Safely- 2 minutes Standing to Sitting Ability Assist, Use Legs on Chair Transfer Ability Safely, Hand Use Unsupported Stance- Eyes Closed Supervision, 10 seconds Unsupported Stance- Eyes Open Independent, 1 minute Reaching Forward Standing Safely, 5 inches Pick- Up Object From Floor Supervision Look Behind Shoulder - Standing Shifts Weight Unilateral Turning 360 Degrees Turns , < 4 secs Unsupported Stance, Alternating Feet on (I)- 8 Steps in > 20 secs Stair Unsupported Tandem Stance Balance Lost- Step/Stand Unilateral Leg Stance Unable,assist to not fall Total Score Miller Total Score (out of 56 points) 37 Diaz Fall Scale Copyright Permission PT-OP-E Functional Tests Start: 12/09/24 15:44 Freq: Status: Active Protocol: Document 12/10/24 10:48 SAK (Rec: 12/10/24 15:40 [facility] [id number]) Functional Tests Dynamic Gait Index (DGI) Score 07/16 Timed Up and Go (TUG) Score 18s PT-OP-G Mobility & Gait Start: 12/09/24 15:44 Freq: Status: Active Protocol: Document 12/10/24 10:47 SAK (Rec: 12/10/24 11:35 SAK [id number]) OP Mobility Evaluation Transfers Sit to Stand knees together PT-OP-H Neuro Start: 12/09/24 15:44 Freq: Status: Active Protocol: Document 12/10/24 10:48 SAK (Rec: 12/10/24 15:40 SAK [id number]) Sensation Evaluation Gross Sensation Gross Sensation WNL PT-OP-J Posture/Palpation/Skin Start: 12/09/24 15:44 Freq: Status: Active Protocol: Document 12/10/24 10:48 SAK (Rec: 12/10/24 15:40 SAK [id number]) Posture Evaluation Position Standing Knee Posture (L) Genu Valgus,(R) Genu Valgus Ankle/Foot Posture (L) Pronated,(R) Pronated PT-OP-M Strength Start: 12/09/24 15:44 Freq: Status: Active Protocol: Document 12/10/24 10:48 SAK (Rec: 12/10/24 15:40 SAK [id number]) Hip Strength Hip Manual Muscle Testing Left Flexion (L2) 3+ Fair+ Extension (S1) 3- Fair- Abduction 4- Good- External Rotation 3+ Fair+ Internal Rotation 4- Good- Right Flexion (L2) 3+ Fair+ Extension (S1) 3- Fair- Abduction 3+ Fair+ External Rotation 3+ Fair+ Internal Rotation 4- Good- Knee Strength Knee Manual Muscle Testing dilip Flexion (S2) 4 Good Extension (L3) 4 Good Ankle/Foot Strength Ankle and Foot Manual Muscle Testing dilip Dorsiflexion (L4) 4 Good Plantarflexion (S1) 4 Good PT-OP-Q Treatments Start: 12/09/24 15:44 Freq: Status: Active Protocol: Document 01/27/25 07:25 AB (Rec: 01/27/25 10:03 AB Laptop) Therapeutic Exercises Supine Exercises seated core warm up Supine Exercise Name 1. shoulder flex (mod to arm at side ext post 2nd set) 2. trunk rot Reps/Minutes 5 X 5 each Comments verbal and visual cues bridge Reps/Minutes 10x focus on glute X10 segmental to improve core Comments verbal cues Sitting Exercises seated hip add Sitting Exercise Name with blue ball Reps/Minutes 15 sec X 5 and one one min hold sit to stand Sitting Exercise Name raised seat height Equipment Used levle 3 band above knees Reps/Minutes 2 X 10 Comments close supervision. seated clam jesus alberto Sitting Exercise Name HEP Resistance L 4 today Reps/Minutes one min X 1 then X 10 without hold Comments Verbal cues Standing Exercises Forward, lat, back curtsy SL Reps/Minutes X 8 each LE Comments hands above bars, verbal and visual cues monster walk Resistance level 4 band above knees Reps/Minutes 10feet X 6 fwd Comments hands above bars side stepping with band Standing Exercise Name with UE support Side bilateral Resistance level 4 above knees Reps/Minutes 10 feet left and right X 4 Gait Training Gait Activity metronome Device Used none Level of Assistance 98 BPM metronome Distance/Duration 2 min walk 331.4 feet ( no metronome available) PT-OP-T Assessment and Plan Start: 12/09/24 15:44 Freq: Status: Active Protocol: Document 01/27/25 07:25 AB (Rec: 01/27/25 10:03 AB Laptop) Physical Therapy Assessment Goals Four Impairment History of falls with Activities specific Balance confidence Scale 52.5 Prison Goal (LTG) Improve score to at least 75 as measure of patient improved balance confidence 01/19/25; no recent falls. ABC score 58% LTG Duration 03/12/25 Three Impairment Gait dysfunction with DGI score 10 Drafter Detail Goal (LTG) Improve gait as evidenced by no falls, improvement in DGI score to at least 17 as measure of decreased fall risk 01/19/25: no recent falls. DGI improved to 14 LTG Duration 03/12/25 Two Impairment Balance dysfunction with Miller Balance SCore 37/56 and TUG 18 sec Drafter Detail Goal (LTG) Improve Miller Balance score to at least 45/56 and TUG to no greater than 10 sec as measures of improved functional balance and safety 01/19/25: TUG 15 sec, Miller 41/ 56 LTG Duration 03/12/25 One Impairment LE weakness Short Term Goal (STG) Patient to be instructed in progressive individualized HEP for purposes of addressing impairments in LE strength 01/19/25: goal met STG Duration goal met Drafter Detail Goal (LTG) Patient to be independent and compliant in HEP and demonstrate improvements in LE strength to at least 4+/5 throughout LTG Duration 03/12/25 Assessment Summary Assessment increased difficulty with SLS step fwd, lat, retro, and curtsy, as takes small steps, but only occ use of bars. Pt rates pain 4/10 L knee end of session. Physical Therapy Plan Frequency and Duration Frequency of Treatment 2x/Week Duration of treatment (weeks) 12 Plan of Care Start Date 12/10/24 Plan of Care End Date 03/12/25 Next Visit Focus/Plan Next Note Type Progress Note Next Visit Plan Increased bpm metronome, continue to progress balance activities. continue step-outs all directions to challenge functional balance.
--- NOTE | 2025-01-29 11:28 | PT.OTN ---
Current Diagnoses Unspecified abnormalities of gait and mobility (01/29/25) Physical Therapy Treatment Note PT-OP-A Visit Information Start: 12/09/24 15:44 Freq: Status: Active Protocol: Document 01/29/25 07:27 AB (Rec: 01/29/25 10:59 AB Laptop) Out-Patient Physical Therapy Visit Information Visit Information Visit Type Treatment Note Visit Note 02/11 Last PT visit 02/16 Last visit ( mine captain ) Visit Start Time 08: Visit Stop Time 09:02 Visit Number 12 PT-OP-B Current Condition Start: 12/09/24 15:44 Freq: Status: Active Protocol: Document 01/19/25 13:03 SAK (Rec: 01/19/25 13:46 SAK Laptop) Current Condition History of Current Condition Onset Date 3+ yrs Current Complaints difficulty with walking History of Current Condition Feels like she is brain damaged, wobbles, has to think about it. has had every test known to man including pulmonology neurologist, blood testing. Found peripheral neuropathy, nothing else. Had psychotherapy, takes Lions Chirag. Symptoms recently got worse again. Cleared for Parkinson's. Had decreased Paxil, but wasn't feeling well , so increased to 10 mg. In house ok, most indoor spaces ok but tentative. Not dizzy, feels weaker than should. Has fallen 2 times; September 26 most recent, both times tripped over something she didn't see and was multitasking. Sometimes uses cane. Does water aerobics M and Th, hasn't been good with other exercising. Has to do constant cues during walking what to do, stopped walking outside. States remembering getting wrong vaccine (3rd shingles shot instead of pneumonia shot), unsure if that may have caused it. PT-OP-C Subjective Start: 12/09/24 15:44 Freq: Status: Active Protocol: Document 01/29/25 07:27 AB (Rec: 01/29/25 10:59 AB Laptop) OP-PT Subjective Patient Comments Patient Comments Norma reports the left knee is painful today, rates pain 1/10 start of session PT-OP-D Balance Start: 12/09/24 15:44 Freq: Status: Active Protocol: Document 12/10/24 10:48 SAK (Rec: 12/10/24 15:40 SAK [id number]) OP-PT Balance Assessment Sitting Balance Static Sitting Balance Ability Normal Dynamic Sitting Balance Ability Good Miller Balance Assessment Evaluation Sitting to Standing Ability Independent w/Hands Unsupported Stance Supervision- 2 minutes Sitting Unsupported, Feet on Floor Safely- 2 minutes Standing to Sitting Ability Assist, Use Legs on Chair Transfer Ability Safely, Hand Use Unsupported Stance- Eyes Closed Supervision, 10 seconds Unsupported Stance- Eyes Open Independent, 1 minute Reaching Forward Standing Safely, 5 inches Pick- Up Object From Floor Supervision Look Behind Shoulder - Standing Shifts Weight Unilateral Turning 360 Degrees Turns , < 4 secs Unsupported Stance, Alternating Feet on (I)- 8 Steps in > 20 secs Stair Unsupported Tandem Stance Balance Lost- Step/Stand Unilateral Leg Stance Unable,assist to not fall Total Score Miller Total Score (out of 56 points) 37 Diaz Fall Scale Copyright Permission PT-OP-E Functional Tests Start: 12/09/24 15:44 Freq: Status: Active Protocol: Document 12/10/24 10:48 SAK (Rec: 12/10/24 15:40 [facility] [id number]) Functional Tests Dynamic Gait Index (DGI) Score 07/16 Timed Up and Go (TUG) Score 18s PT-OP-G Mobility & Gait Start: 12/09/24 15:44 Freq: Status: Active Protocol: Document 12/10/24 10:47 SAK (Rec: 12/10/24 11:35 [facility] [id number]) OP Mobility Evaluation Transfers Sit to Stand knees together PT-OP-H Neuro Start: 12/09/24 15:44 Freq: Status: Active Protocol: Document 12/10/24 10:48 SAK (Rec: 12/10/24 15:40 [facility] [id number]) Sensation Evaluation Gross Sensation Gross Sensation WNL PT-OP-J Posture/Palpation/Skin Start: 12/09/24 15:44 Freq: Status: Active Protocol: Document 12/10/24 10:48 SAK (Rec: 12/10/24 15:40 [facility] [id number]) Posture Evaluation Position Standing Knee Posture (L) Genu Valgus,(R) Genu Valgus Ankle/Foot Posture (L) Pronated,(R) Pronated PT-OP-M Strength Start: 12/09/24 15:44 Freq: Status: Active Protocol: Document 12/10/24 10:48 SAK (Rec: 12/10/24 15:40 [facility] [id number]) Hip Strength Hip Manual Muscle Testing Left Flexion (L2) 3+ Fair+ Extension (S1) 3- Fair- Abduction 4- Good- External Rotation 3+ Fair+ Internal Rotation 4- Good- Right Flexion (L2) 3+ Fair+ Extension (S1) 3- Fair- Abduction 3+ Fair+ External Rotation 3+ Fair+ Internal Rotation 4- Good- Knee Strength Knee Manual Muscle Testing dilip Flexion (S2) 4 Good Extension (L3) 4 Good Ankle/Foot Strength Ankle and Foot Manual Muscle Testing dilip Dorsiflexion (L4) 4 Good Plantarflexion (S1) 4 Good PT-OP-Q Treatments Start: 12/09/24 15:44 Freq: Status: Active Protocol: Document 01/29/25 07:27 AB (Rec: 01/29/25 10:59 AB Laptop) Therapeutic Exercises Supine Exercises bridge Side bilateral Resistance level one band above knees added to HEP Reps/Minutes X10 X2 Comments verbal cues to keep tension on band SLR Side bilateral Reps/Minutes 10x 2 Comments VC to relax between reps and then quad set/ push knee straight prior to li hip ab Supine Exercise Name back to wall Side bilateral Resistance level one band to HEP Reps/Minutes 10x2 Comments cues for correct technique Sitting Exercises sit to stand Sitting Exercise Name 1/2 to chair Equipment Used X 10 Comments verbal cues initated from standard chair X2 with report increased knee pain seated clam jesus alberto Sitting Exercise Name HEP Resistance L 3 to HEP Reps/Minutes one min X 1 Comments Verbal cues Standing Exercises tandem stand Standing Exercise Name HEP Reps/Minutes 30 + sec each LE SLS Equipment Used raised mat Reps/Minutes 2 min practice Comments requires increased intermittent UE support Gait Training Gait Activity metronome Level of Assistance 100 BPM metromone Distance/Duration 2 min Neuro Re-Education Treatment Balance Activities tandem stance Reps/Duration 30 Comments CGA hands above bars PT-OP-T Assessment and Plan Start: 12/09/24 15:44 Freq: Status: Active Protocol: Document 01/29/25 07:27 AB (Rec: 01/29/25 10:59 AB Laptop) Physical Therapy Assessment Goals Four Impairment History of falls with Activities specific Balance confidence Scale 52.5 Soda Maker Goal (LTG) Improve score to at least 75 as measure of patient improved balance confidence 01/19/25; no recent falls. ABC score 58% LTG Duration 03/12/25 Three Impairment Gait dysfunction with DGI score 10/24 Jail Goal (LTG) Improve gait as evidenced by no falls, improvement in DGI score to at least 17 as measure of decreased fall risk 01/19/25: no recent falls. DGI improved to 14/24 LTG Duration 03/12/25 Two Impairment Balance dysfunction with Miller Balance SCore 37/56 and TUG 18 sec Jail Goal (LTG) Improve Miller Balance score to at least 45/56 and TUG to no greater than 10 sec as measures of improved functional balance and safety 01/19/25: TUG 15 sec, Miller 41/ 56 LTG Duration 03/12/25 One Impairment LE weakness Short Term Goal (STG) Patient to be instructed in progressive individualized HEP for purposes of addressing impairments in LE strength 01/19/25: goal met STG Duration goal met Jail Goal (LTG) Patient to be independent and compliant in HEP and demonstrate improvements in LE strength to at least 4+/5 throughout LTG Duration 03/12/25 Progress Towards Goals Progress Towards Goals Progressing Toward Goals Assessment Summary Assessment post supine to sit reports feeling dizzy 111/65 HR 66 seated R UE, standing 116/73 72. HEP updated and progressed /condensed this session. Physical Therapy Plan Frequency and Duration Frequency of Treatment 2x/Week Duration of treatment (weeks) 12 Plan of Care Start Date 12/10/24 Plan of Care End Date 03/12/25 Next Visit Focus/Plan Next Note Type Treatment Note Next Visit Plan Increased bpm metronome, continue to progress balance activities. continue step-outs all directions to challenge functional balance.
--- NOTE | 2025-02-02 12:17 | PT.OTN ---
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 has had every test known to man including pulmonology neurologist, blood testing. Found peripheral neuropathy, nothing else. Had psychotherapy, takes Lions Chirag. Symptoms recently got worse again. Cleared for Parkinson's. Had decreased Paxil, but wasn't feeling well , so increased to 10 mg. In house ok, most indoor spaces ok but tentative. Not dizzy, feels weaker than should. Has fallen 2 times; September 26 most recent, both times tripped over something she didn't see and was multitasking. Sometimes uses cane. Does water aerobics M and , hasn't been good with other exercising. Has to do constant cues during walking what to do, stopped walking outside. States remembering getting wrong vaccine (3rd shingles shot instead of pneumonia shot), unsure if that may have caused it. Treatment Goals Patient/Caregiver Goals Needs some tools for getting past Freezing PT-OP-C Subjective Start: 12/09/24 15:44 Freq: Status: Active Protocol: Document 02/02/25 11:29 SAK (Rec: 02/02/25 12:17 SAK Laptop) OP-PT Subjective Patient Comments Patient Comments Reporting left knee pain. Has cancelled TaiChi, resumed aquatic exercises instead M and . Also taking walks with poles 20-25 min, or goes to the gym. Much difficulty getting down to the floor, had to crawl to bedroom for stable furniture to hold onto. PT-OP-D Balance Start: 12/09/24 15:44 Freq: Status: Active Protocol: Document 12/10/24 10:48 SAK (Rec: 12/10/24 15:40 [facility] [id number]) OP-PT Balance Assessment Sitting Balance Static Sitting Balance Ability Normal Dynamic Sitting Balance Ability Good Miller Balance Assessment Evaluation Sitting to Standing Ability Independent w/Hands Unsupported Stance Supervision- 2 minutes Sitting Unsupported, Feet on Floor Safely- 2 minutes Standing to Sitting Ability Assist, Use Legs on Chair Transfer Ability Safely, Hand Use Unsupported Stance- Eyes Closed Supervision, 10 seconds Unsupported Stance- Eyes Open Independent, 1 minute Reaching Forward Standing Safely, 5 inches Pick- Up Object From Floor Supervision Look Behind Shoulder - Standing Shifts Weight Unilateral Turning 360 Degrees Turns , < 4 secs Unsupported Stance, Alternating Feet on (I)- 8 Steps in > 20 secs Stair Unsupported Tandem Stance Balance Lost- Step/Stand Unilateral Leg Stance Unable,assist to not fall Total Score Miller Total Score (out of 56 points) 37 Diaz Fall Scale Copyright Permission PT-OP-E Functional Tests Start: 12/09/24 15:44 Freq: Status: Active Protocol: Document 12/10/24 10:48 SAK (Rec: 12/10/24 15:40 [facility] [id number]) Functional Tests Dynamic Gait Index (DGI) Score 10/24 Timed Up and Go (TUG) Score 18s PT-OP-G Mobility & Gait Start: 12/09/24 15:44 Freq: Status: Active Protocol: Document 12/10/24 10:47 SAK (Rec: 12/10/24 11:35 [facility] [id number]) OP Mobility Evaluation Transfers Sit to Stand knees together PT-OP-H Neuro Start: 12/09/24 15:44 Freq: Status: Active Protocol: Document 12/10/24 10:48 SAK (Rec: 12/10/24 15:40 [facility] [id number]) Sensation Evaluation Gross Sensation Gross Sensation WNL PT-OP-J Posture/Palpation/Skin Start: 12/09/24 15:44 Freq: Status: Active Protocol: Document 12/10/24 10:48 SAK (Rec: 12/10/24 15:40 [facility] [id number]) Posture Evaluation Position Standing Knee Posture (L) Genu Valgus,(R) Genu Valgus Ankle/Foot Posture (L) Pronated,(R) Pronated PT-OP-M Strength Start: 12/09/24 15:44 Freq: Status: Active Protocol: Document 12/10/24 10:48 [facility] (Rec: 12/10/24 15:40 [facility] [id number]) Hip Strength Hip Manual Muscle Testing Left Flexion (L2) 3+ Fair+ Extension (S1) 3- Fair- Abduction 4- Good- External Rotation 3+ Fair+ Internal Rotation 4- Good- Right Flexion (L2) 3+ Fair+ Extension (S1) 3- Fair- Abduction 3+ Fair+ External Rotation 3+ Fair+ Internal Rotation 4- Good- Knee Strength Knee Manual Muscle Testing dilip Flexion (S2) 4 Good Extension (L3) 4 Good Ankle/Foot Strength Ankle and Foot Manual Muscle Testing dilip Dorsiflexion (L4) 4 Good Plantarflexion (S1) 4 Good PT-OP-Q Treatments Start: 12/09/24 15:44 Freq: Status: Active Protocol: Document 02/02/25 11:29 [facility] (Rec: 02/02/25 12:17 [facility] Laptop) Therapeutic Exercises Sitting Exercises sit to stand Sitting Exercise Name 1/2 to chair Equipment Used X 10 Comments verbal cues initated from standard chair X2 with report increased knee pain seated clam jesus alberto Sitting Exercise Name HEP Resistance L 3 to HEP Reps/Minutes one min X 1 Comments Verbal cues Standing Exercises tandem stand Standing Exercise Name tandem walk Reps/Minutes 50ft Therapeutic Activity Therapeutic Activity floor transfer Reps/Minutes 1x Comments chair to floor; more difficulty getting down than up; required mod A as pt lost balance while lowering down with PT slowing her descent. CGA to get up with use of chair Gait Training Gait Activity metronome Level of Assistance 100 BPM metromone Distance/Duration 2 min x 2 Comments 368 ft second trial challenged gait Description hallway Device Used gait belt Level of Assistance CG to min A Surface firm Distance/Duration 12 min Treatment Focus balance, gait safety Comments relaxed arm swing, alternating speeds, marching, sidestepping, backward walking , head turns, heel walk, toe walk, tandem gait Neuro Re-Education Treatment Balance Activities BOSU Details 1. marching blue side 2. AP and lat WS black side 3. Mini squat black side Reps/Duration X10 Comments CGA hands above bars once on BOSU PT-OP-T Assessment and Plan Start: 12/09/24 15:44 Freq: Status: Active Protocol: Document 02/02/25 11:29 SAK (Rec: 02/02/25 12:17 SAK Laptop) Physical Therapy Assessment Goals Four Impairment History of falls with Activities specific Balance confidence Scale 52.5 Bookstore Manager Goal (LTG) Improve score to at least 75 as measure of patient improved balance confidence 01/19/25; no recent falls. ABC score 58% LTG Duration 03/12/25 Three Impairment Gait dysfunction with DGI score 10 Long-Term Goal (LTG) Improve gait as evidenced by no falls, improvement in DGI score to at least 17 as measure of decreased fall risk 01/19/25: no recent falls. DGI improved to 14 LTG Duration 03/12/25 Two Impairment Balance dysfunction with Miller Balance SCore 37/56 and TUG 18 sec Long-Term Goal (LTG) Improve Miller Balance score to at least 45/56 and TUG to no greater than 10 sec as measures of improved functional balance and safety 01/19/25: TUG 15 sec, Miller 41/ 56 LTG Duration 03/12/25 One Impairment LE weakness Short Term Goal (STG) Patient to be instructed in progressive individualized HEP for purposes of addressing impairments in LE strength 01/19/25: goal met STG Duration goal met Long-Term Goal (LTG) Patient to be independent and compliant in HEP and demonstrate improvements in LE strength to at least 4+/5 throughout LTG Duration 03/12/25 Assessment Summary Assessment Patient reported mild knee pain, denied increase with PT activities. Difficulty with lowering portion of floor transfer. Increased distance 2 min walk with metronome 100bpm Physical Therapy Plan Frequency and Duration Frequency of Treatment 2x/Week Duration of treatment (weeks) 12 Plan of Care Start Date 12/10/24 Plan of Care End Date 03/12/25 Next Visit Focus/Plan Next Note Type Treatment Note Next Visit Plan Continue to progress balance and challenged activities, LE and core strengthening continue step-outs all directions to challenge functional balance.
--- NOTE | 2025-02-05 10:08 | PT.OTN ---
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 Visit Start Time 08:21 Visit Stop Time 09:03 Visit Number 14 Number of STRATEGY MANAGER Visits 1 Evaluation Information Evaluation Date 12/10/24 Precautions Precautions fall risk PT-OP-B Current Condition Start: 12/09/24 15:44 Freq: Status: Active Protocol: Document 02/02/25 11:29 SAK (Rec: 02/02/25 12:17 SAK Laptop) Current Condition History of Current Condition Onset Date 3+ yrs Current Complaints difficulty with walking History of Current Condition Feels like she is brain damaged, wobbles, has to think about it. has had every test known to man including pulmonology neurologist, blood testing. Found peripheral neuropathy, nothing else. Had psychotherapy, takes Lions Chirag. Symptoms recently got worse again. Cleared for Parkinson's. Had decreased Paxil, but wasn't feeling well , so increased to 10 mg. In house ok, most indoor spaces ok but tentative. Not dizzy, feels weaker than should. Has fallen 2 times; September 26 most recent, both times tripped over something she didn't see and was multitasking. Sometimes uses cane. Does water aerobics and , hasn't been good with other exercising. Has to do constant cues during walking what to do, stopped walking outside. States remembering getting wrong vaccine (3rd shingles shot instead of pneumonia shot), unsure if that may have caused it. Treatment Goals Patient/Caregiver Goals Needs some tools for getting past Freezing PT-OP-C Subjective Start: 12/09/24 15:44 Freq: Status: Active Protocol: Document 02/05/25 07:26 AB (Rec: 02/05/25 09:17 AB Laptop) OP-PT Subjective Patient Comments Patient Comments Patient reports she is fine, got a very strong massage yesterday, is a little sore. PT-OP-D Balance Start: 12/09/24 15:44 Freq: Status: Active Protocol: Document 12/10/24 10:48 SAK (Rec: 12/10/24 15:40 SAK [id number]) OP-PT Balance Assessment Sitting Balance Static Sitting Balance Ability Normal Dynamic Sitting Balance Ability Good Miller Balance Assessment Evaluation Sitting to Standing Ability Independent w/Hands Unsupported Stance Supervision- 2 minutes Sitting Unsupported, Feet on Floor Safely- 2 minutes Standing to Sitting Ability Assist, Use Legs on Chair Transfer Ability Safely, Hand Use Unsupported Stance- Eyes Closed Supervision, 10 seconds Unsupported Stance- Eyes Open Independent, 1 minute Reaching Forward Standing Safely, 5 inches Pick- Up Object From Floor Supervision Look Behind Shoulder - Standing Shifts Weight Unilateral Turning 360 Degrees Turns , < 4 secs Unsupported Stance, Alternating Feet on (I)- 8 Steps in > 20 secs Stair Unsupported Tandem Stance Balance Lost- Step/Stand Unilateral Leg Stance Unable,assist to not fall Total Score Miller Total Score (out of 56 points) 37 Diaz Fall Scale Copyright Permission PT-OP-E Functional Tests Start: 12/09/24 15:44 Freq: Status: Active Protocol: Document 12/10/24 10:48 SAK (Rec: 12/10/24 15:40 SAK [id number]) Functional Tests Dynamic Gait Index (DGI) Score 07/16 Timed Up and Go (TUG) Score 18s PT-OP-G Mobility & Gait Start: 12/09/24 15:44 Freq: Status: Active Protocol: Document 12/10/24 10:47 SAK (Rec: 12/10/24 11:35 SAK [id number]) OP Mobility Evaluation Transfers Sit to Stand knees together PT-OP-H Neuro Start: 12/09/24 15:44 Freq: Status: Active Protocol: Document 12/10/24 10:48 SAK (Rec: 12/10/24 15:40 SAK [id number]) Sensation Evaluation Gross Sensation Gross Sensation WNL PT-OP-J Posture/Palpation/Skin Start: 12/09/24 15:44 Freq: Status: Active Protocol: Document 12/10/24 10:48 SAK (Rec: 12/10/24 15:40 SAK [id number]) Posture Evaluation Position Standing Knee Posture (L) Genu Valgus,(R) Genu Valgus Ankle/Foot Posture (L) Pronated,(R) Pronated PT-OP-M Strength Start: 12/09/24 15:44 Freq: Status: Active Protocol: Document 12/10/24 10:48 SAK (Rec: 12/10/24 15:40 SAK [id number]) Hip Strength Hip Manual Muscle Testing Left Flexion (L2) 3+ Fair+ Extension (S1) 3- Fair- Abduction 4- Good- External Rotation 3+ Fair+ Internal Rotation 4- Good- Right Flexion (L2) 3+ Fair+ Extension (S1) 3- Fair- Abduction 3+ Fair+ External Rotation 3+ Fair+ Internal Rotation 4- Good- Knee Strength Knee Manual Muscle Testing dilip Flexion (S2) 4 Good Extension (L3) 4 Good Ankle/Foot Strength Ankle and Foot Manual Muscle Testing dilip Dorsiflexion (L4) 4 Good Plantarflexion (S1) 4 Good PT-OP-Q Treatments Start: 12/09/24 15:44 Freq: Status: Active Protocol: Document 02/05/25 07:26 AB (Rec: 02/05/25 09:17 AB Laptop) Gym Equipment Shuttle Balance red Details normal KEILA with head turns and visual scanning Reps/Duration 2 min Comments CGA Therapeutic Exercises Standing Exercises glute med isomertic Reps/Minutes 60 sec each UE with UE support Comments slightly unsteady post, verbal and visual cues Forward, lat, back curtsy SL Reps/Minutes X 8 each LE Comments hands above bars, verbal and visual cues side stepping with band Standing Exercise Name with UE support Side bilateral Resistance level 4 above knees Reps/Minutes 10 feet left and right X 3 HC stretch Standing Exercise Name gastroc and soleus Equipment Used ARY Reps/Minutes 1x60 also with step through X10 Comments Verbal cues heel raise, toe raise Reps/Minutes X 15 Comments with UE support Gait Training Gait Activity metronome Level of Assistance 105 BPM metromone Distance/Duration 2 min x 2 Comments 395 feet Neuro Re-Education Treatment Balance Activities step up taps standing on foam Surface foam Equipment 6 inch step Reps/Duration X10 each LE Comments CGA tandem stance Details tandem stepping Reps/Duration 10 feet X 6 CGA initiates with hands above bars PT-OP-T Assessment and Plan Start: 12/09/24 15:44 Freq: Status: Active Protocol: Document 02/05/25 07:26 AB (Rec: 02/05/25 09:17 AB Laptop) Physical Therapy Assessment Goals Four Impairment History of falls with Activities specific Balance confidence Scale 52.5 Correction Goal (LTG) Improve score to at least 75 as measure of patient improved balance confidence 01/19/25; no recent falls. ABC score 58% LTG Duration 03/12/25 Three Impairment Gait dysfunction with DGI score 10/24 Correction Goal (LTG) Improve gait as evidenced by no falls, improvement in DGI score to at least 17 as measure of decreased fall risk 01/19/25: no recent falls. DGI improved to 14/24 LTG Duration 03/12/25 Two Impairment Balance dysfunction with Miller Balance SCore 37/56 and TUG 18 sec Loss Prevention Guard Goal (LTG) Improve Miller Balance score to at least 45/56 and TUG to no greater than 10 sec as measures of improved functional balance and safety 01/19/25: TUG 15 sec, Miller 41/ 56 LTG Duration 03/12/25 One Impairment LE weakness Short Term Goal (STG) Patient to be instructed in progressive individualized HEP for purposes of addressing impairments in LE strength 01/19/25: goal met STG Duration goal met Correction Goal (LTG) Patient to be independent and compliant in HEP and demonstrate improvements in LE strength to at least 4+/5 throughout LTG Duration 03/12/25 Progress Towards Goals Progress Towards Goals Progressing Toward Goals Assessment Summary Assessment Patient reports having no pain end of session, was slightly SOB post ambulation to metronome. Physical Therapy Plan Frequency and Duration Frequency of Treatment 2x/Week Duration of treatment (weeks) 12 Plan of Care Start Date 12/10/24 Plan of Care End Date 03/12/25 Next Visit Focus/Plan Next Note Type Treatment Note Next Visit Plan Continue to progress balance and challenged activities, LE and core strengthening continue step-outs all directions to challenge functional balance. Revisit glute med activation, if steady post consider adding to HEP.
--- NOTE | 2025-02-09 16:15 | PT.OTN ---
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 Visit Start Time 13:46 Visit Stop Time 14:30 Visit Number 15( PN by 02/18, * last PT sched visit 02/11/25) Number of DISTRIBUTOR SALES MANAGER Visits 2 Evaluation Information Evaluation Date 12/10/24 Precautions Precautions fall risk PT-OP-B Current Condition Start: 12/09/24 15:44 Freq: Status: Active Protocol: Document 02/02/25 11:29 SAK (Rec: 02/02/25 12:17 SAK Laptop) Current Condition History of Current Condition Onset Date 3+ yrs Current Complaints difficulty with walking History of Current Condition Feels like she is brain damaged, wobbles, has to think about it. has had every test known to man including pulmonology neurologist, blood testing. Found peripheral neuropathy, nothing else. Had psychotherapy, takes [employer] Chirag. Symptoms recently got worse again. Cleared for Parkinson's. Had decreased Paxil, but wasn't feeling well , so increased to 10 mg. In house ok, most indoor spaces ok but tentative. Not dizzy, feels weaker than should. Has fallen 2 times; September 26 most recent, both times tripped over something she didn't see and was multitasking. Sometimes uses cane. Does water aerobics and , hasn't been good with other exercising. Has to do constant cues during walking what to do, stopped walking outside. States remembering getting wrong vaccine (3rd shingles shot instead of pneumonia shot), unsure if that may have caused it. Treatment Goals Patient/Caregiver Goals Needs some tools for getting past Freezing PT-OP-C Subjective Start: 12/09/24 15:44 Freq: Status: Active Protocol: Document 02/09/25 13:15 AB (Rec: 02/09/25 14:35 AB Laptop) OP-PT Subjective Patient Comments Patient Comments Patient reports she is feeling stronger. SLS 2, 2, 2 sec R LE less than one sec X 3 L LE. Patient reports she forgot to use the bands for the sit to stand and sidelying hip abduction. PT-OP-D Balance Start: 12/09/24 15:44 Freq: Status: Active Protocol: Document 12/10/24 10:48 SAK (Rec: 12/10/24 15:40 SAK [id number]) OP-PT Balance Assessment Sitting Balance Static Sitting Balance Ability Normal Dynamic Sitting Balance Ability Good Miller Balance Assessment Evaluation Sitting to Standing Ability Independent w/Hands Unsupported Stance Supervision- 2 minutes Sitting Unsupported, Feet on Floor Safely- 2 minutes Standing to Sitting Ability Assist, Use Legs on Chair Transfer Ability Safely, Hand Use Unsupported Stance- Eyes Closed Supervision, 10 seconds Unsupported Stance- Eyes Open Independent, 1 minute Reaching Forward Standing Safely, 5 inches Pick- Up Object From Floor Supervision Look Behind Shoulder - Standing Shifts Weight Unilateral Turning 360 Degrees Turns , < 4 secs Unsupported Stance, Alternating Feet on (I)- 8 Steps in > 20 secs Stair Unsupported Tandem Stance Balance Lost- Step/Stand Unilateral Leg Stance Unable,assist to not fall Total Score Miller Total Score (out of 56 points) 37 Diaz Fall Scale Copyright Permission PT-OP-E Functional Tests Start: 12/09/24 15:44 Freq: Status: Active Protocol: Document 12/10/24 10:48 SAK (Rec: 12/10/24 15:40 SAK [id number]) Functional Tests Dynamic Gait Index (DGI) Score 07/16 Timed Up and Go (TUG) Score 18s PT-OP-G Mobility & Gait Start: 12/09/24 15:44 Freq: Status: Active Protocol: Document 12/10/24 10:47 SAK (Rec: 12/10/24 11:35 SAK [id number]) OP Mobility Evaluation Transfers Sit to Stand knees together PT-OP-H Neuro Start: 12/09/24 15:44 Freq: Status: Active Protocol: Document 12/10/24 10:48 SAK (Rec: 12/10/24 15:40 SAK [id number]) Sensation Evaluation Gross Sensation Gross Sensation WNL PT-OP-J Posture/Palpation/Skin Start: 12/09/24 15:44 Freq: Status: Active Protocol: Document 12/10/24 10:48 SAK (Rec: 12/10/24 15:40 [facility] [id number]) Posture Evaluation Position Standing Knee Posture (L) Genu Valgus,(R) Genu Valgus Ankle/Foot Posture (L) Pronated,(R) Pronated PT-OP-M Strength Start: 12/09/24 15:44 Freq: Status: Active Protocol: Document 12/10/24 10:48 SAK (Rec: 12/10/24 15:40 [facility] [id number]) Hip Strength Hip Manual Muscle Testing Left Flexion (L2) 3+ Fair+ Extension (S1) 3- Fair- Abduction 4- Good- External Rotation 3+ Fair+ Internal Rotation 4- Good- Right Flexion (L2) 3+ Fair+ Extension (S1) 3- Fair- Abduction 3+ Fair+ External Rotation 3+ Fair+ Internal Rotation 4- Good- Knee Strength Knee Manual Muscle Testing dilip Flexion (S2) 4 Good Extension (L3) 4 Good Ankle/Foot Strength Ankle and Foot Manual Muscle Testing dilip Dorsiflexion (L4) 4 Good Plantarflexion (S1) 4 Good PT-OP-Q Treatments Start: 12/09/24 15:44 Freq: Status: Active Protocol: Document 02/09/25 13:15 AB (Rec: 02/09/25 14:35 AB Laptop) Cardio Equipment Recumbent Stepper (Sci-Fit) Duration (Minutes) 7 Resistance 3 Seat Position 11 Other warm up Gym Equipment Shuttle Recovery Unilateral Squats Resistance 62 # Reps/Time X 10 Bilateral Squats Resistance 75# then 87# 2 navy one teal Reps/Time X 15 X 2 Therapeutic Exercises Sitting Exercises sit to stand Sitting Exercise Name 1/2 to chair Resistance level 2 band above knees Equipment Used X 10 then X 10 holding bar Comments verbal cues initated from standard chair X2 with report increased knee pain Standing Exercises glute med isomertic Reps/Minutes 60 sec each UE with UE support Comments slightly unsteady post, verbal and visual cues Forward, lat, back curtsy SL Reps/Minutes X 8 each LE Comments hands above bars, mirror for knee alignment monster walk Resistance level 4 band above knees Reps/Minutes 10feet X 3 fwd X 3 retro Comments hands above bars side stepping with band Standing Exercise Name with UE support Side bilateral Resistance level 4 above knees Reps/Minutes 10 feet left and right X 3 heel raise, toe raise Standing Exercise Name single leg Heel raise with UE use then toe raise bilateral Side bilateral Reps/Minutes X 15 each Comments with UE support Neuro Re-Education Treatment Balance Activities Hurdles Reps/Duration 10 feet L and Right X 4 Comments CGA step up taps standing on foam Surface foam Equipment 6 inch step Reps/Duration X10 each LE Comments CGA SLS Details with intermittent finger tip support, also visual scanning and head turns Reps/Duration 3 min then one min with out UE use Comments Alternating LE use PT-OP-T Assessment and Plan Start: 12/09/24 15:44 Freq: Status: Active Protocol: Document 02/09/25 13:15 AB (Rec: 02/09/25 14:35 AB Laptop) Physical Therapy Assessment Goals Four Impairment History of falls with Activities specific Balance confidence Scale 52.5 Smelter Charger Goal (LTG) Improve score to at least 75 as measure of patient improved balance confidence 01/19/25; no recent falls. ABC score 58% LTG Duration 03/12/25 Three Impairment Gait dysfunction with DGI score 10/24 Smelter Charger Goal (LTG) Improve gait as evidenced by no falls, improvement in DGI score to at least 17 as measure of decreased fall risk 01/19/25: no recent falls. DGI improved to 14/24 LTG Duration 03/12/25 Two Impairment Balance dysfunction with Miller Balance SCore 37/56 and TUG 18 sec Smelter Charger Goal (LTG) Improve Miller Balance score to at least 45/56 and TUG to no greater than 10 sec as measures of improved functional balance and safety 01/19/25: TUG 15 sec, Miller 41/ 56 LTG Duration 03/12/25 One Impairment LE weakness Short Term Goal (STG) Patient to be instructed in progressive individualized HEP for purposes of addressing impairments in LE strength 01/19/25: goal met STG Duration goal met Detention Goal (LTG) Patient to be independent and compliant in HEP and demonstrate improvements in LE strength to at least 4+/5 throughout LTG Duration 03/12/25 Progress Towards Goals Progress Towards Goals Progressing Toward Goals Assessment Summary Assessment SLS continues to be limited L >R LE. Good marcela to increased weight on shuttle recovery Physical Therapy Plan Frequency and Duration Frequency of Treatment 2x/Week Duration of treatment (weeks) 12 Plan of Care Start Date 12/10/24 Plan of Care End Date 03/12/25 Next Visit Focus/Plan Next Note Type Treatment Note Next Visit Plan Continue to progress balance and challenged activities, LE and core strengthening continue step-outs all directions to challenge functional balance. Revisit glute med activation, if steady post consider adding to HEP.
--- NOTE | 2025-02-11 18:04 | PT.OTN ---
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 Visit Start Time 10:47 Visit Stop Time 11:26 Visit Number 16 Number of ADMINISTRATIVE SUPERVISOR Visits 0 Evaluation Information Evaluation Date 12/10/24 Precautions Precautions fall risk PT-OP-B Current Condition Start: 12/09/24 15:44 Freq: Status: Active Protocol: Document 02/02/25 11:29 SAK (Rec: 02/02/25 12:17 SAK Laptop) Current Condition History of Current Condition Onset Date 3+ yrs Current Complaints difficulty with walking History of Current Condition Feels like she is brain damaged, wobbles, has to think about it. has had every test known to man including pulmonology neurologist, blood testing. Found peripheral neuropathy, nothing else. Had psychotherapy, takes [employer] Chirag. Symptoms recently got worse again. Cleared for Parkinson's. Had decreased Paxil, but wasn't feeling well , so increased to 10 mg. In house ok, most indoor spaces ok but tentative. Not dizzy, feels weaker than should. Has fallen 2 times; September 26 most recent, both times tripped over something she didn't see and was multitasking. Sometimes uses cane. Does water aerobics and , hasn't been good with other exercising. Has to do constant cues during walking what to do, stopped walking outside. States remembering getting wrong vaccine (3rd shingles shot instead of pneumonia shot), unsure if that may have caused it. Treatment Goals Patient/Caregiver Goals Needs some tools for getting past Freezing PT-OP-C Subjective Start: 12/09/24 15:44 Freq: Status: Active Protocol: Document 02/11/25 10:47 SAK (Rec: 02/11/25 11:29 SAK Laptop) OP-PT Subjective Patient Comments Patient Comments I feel generally better, had a few days feeling pretty normal, then the uncertainty about mobility came back. Doing HEP, going to aquatic exercise and gym for ex some. Understands will be discharged after next PT visit , will need new prescription to return to PT. Patient Reported Progress Improving PT-OP-D Balance Start: 12/09/24 15:44 Freq: Status: Active Protocol: Document 12/10/24 10:48 SAK (Rec: 12/10/24 15:40 [facility] [id number]) OP-PT Balance Assessment Sitting Balance Static Sitting Balance Ability Normal Dynamic Sitting Balance Ability Good Miller Balance Assessment Evaluation Sitting to Standing Ability Independent w/Hands Unsupported Stance Supervision- 2 minutes Sitting Unsupported, Feet on Floor Safely- 2 minutes Standing to Sitting Ability Assist, Use Legs on Chair Transfer Ability Safely, Hand Use Unsupported Stance- Eyes Closed Supervision, 10 seconds Unsupported Stance- Eyes Open Independent, 1 minute Reaching Forward Standing Safely, 5 inches Pick- Up Object From Floor Supervision Look Behind Shoulder - Standing Shifts Weight Unilateral Turning 360 Degrees Turns , < 4 secs Unsupported Stance, Alternating Feet on (I)- 8 Steps in > 20 secs Stair Unsupported Tandem Stance Balance Lost- Step/Stand Unilateral Leg Stance Unable,assist to not fall Total Score Miller Total Score (out of 56 points) 37 Diaz Fall Scale Copyright Permission PT-OP-E Functional Tests Start: 12/09/24 15:44 Freq: Status: Active Protocol: Document 12/10/24 10:48 SAK (Rec: 12/10/24 15:40 [facility] [id number]) Functional Tests Dynamic Gait Index (DGI) Score 07/16 Timed Up and Go (TUG) Score 18s PT-OP-G Mobility & Gait Start: 12/09/24 15:44 Freq: Status: Active Protocol: Document 12/10/24 10:47 SAK (Rec: 12/10/24 11:35 SAK [id number]) OP Mobility Evaluation Transfers Sit to Stand knees together PT-OP-H Neuro Start: 12/09/24 15:44 Freq: Status: Active Protocol: Document 12/10/24 10:48 SAK (Rec: 12/10/24 15:40 [facility] [id number]) Sensation Evaluation Gross Sensation Gross Sensation WNL PT-OP-J Posture/Palpation/Skin Start: 12/09/24 15:44 Freq: Status: Active Protocol: Document 12/10/24 10:48 SAK (Rec: 12/10/24 15:40 [facility] [id number]) Posture Evaluation Position Standing Knee Posture (L) Genu Valgus,(R) Genu Valgus Ankle/Foot Posture (L) Pronated,(R) Pronated PT-OP-M Strength Start: 12/09/24 15:44 Freq: Status: Active Protocol: Document 12/10/24 10:48 [facility] (Rec: 12/10/24 15:40 [facility] [id number]) Hip Strength Hip Manual Muscle Testing Left Flexion (L2) 3+ Fair+ Extension (S1) 3- Fair- Abduction 4- Good- External Rotation 3+ Fair+ Internal Rotation 4- Good- Right Flexion (L2) 3+ Fair+ Extension (S1) 3- Fair- Abduction 3+ Fair+ External Rotation 3+ Fair+ Internal Rotation 4- Good- Knee Strength Knee Manual Muscle Testing dilip Flexion (S2) 4 Good Extension (L3) 4 Good Ankle/Foot Strength Ankle and Foot Manual Muscle Testing dilip Dorsiflexion (L4) 4 Good Plantarflexion (S1) 4 Good PT-OP-Q Treatments Start: 12/09/24 15:44 Freq: Status: Active Protocol: Document 02/11/25 10:47 [facility] (Rec: 02/11/25 11:29 [facility] Laptop) Therapeutic Exercises Sitting Exercises sit to stand Resistance level 2 band above knees Equipment Used X 5 Comments cues for thighs against band, able to do without UE assist seated clam jesus alberto Sitting Exercise Name HEP Resistance L2 to HEP Reps/Minutes one min X 1 Comments Verbal cues Standing Exercises glute med isomertic Reps/Minutes 60 sec each LE with UE support Comments slightly unsteady post, verbal and visual cues Neuro Re-Education Treatment Balance Activities DGI and Miller Reps/Duration 11 min Hurdles Reps/Duration 10 feet L and Right X 4 Comments CGA Self-Care/Home Management Treatment Education Other Education issued HEP HO for standing glut med jesus alberto PT-OP-T Assessment and Plan Start: 12/09/24 15:44 Freq: Status: Active Protocol: Document 02/11/25 10:47 [facility] (Rec: 02/11/25 11:29 [facility] Laptop) Physical Therapy Assessment Goals Four Impairment History of falls with Activities specific Balance confidence Scale 52.5 Team Facilitator Goal (LTG) Improve score to at least 75 as measure of patient improved balance confidence 01/19/25; no recent falls. ABC score 58% 02/11/25: no recent falls, ABC score 65%, improved LTG Duration 03/12/25 Three Impairment Gait dysfunction with DGI score 10/24 Team Facilitator Goal (LTG) Improve gait as evidenced by no falls, improvement in DGI score to at least 17 as measure of decreased fall risk 01/19/25: no recent falls. DGI improved to 14/24 02/11/25: DGI improved to 16/24 LTG Duration 03/12/25 Two Impairment Balance dysfunction with Miller Balance SCore 37/56 and TUG 18 sec Team Facilitator Goal (LTG) Improve Miller Balance score to at least 45/56 and TUG to no greater than 10 sec as measures of improved functional balance and safety 01/19/25: TUG 15 sec, Miller 41/ 56 02/11/25: TUG 13 sec, Miller 44/ 56 LTG Duration 03/12/25 One Impairment LE weakness Short Term Goal (STG) Patient to be instructed in progressive individualized HEP for purposes of addressing impairments in LE strength 01/19/25: goal met STG Duration goal met [facility] Goal (LTG) Patient to be independent and compliant in HEP and demonstrate improvements in LE strength to at least 4+/5 throughout 02/11/25: improved but not fully met LTG Duration 03/12/25 Progress Towards Goals Progress Towards Goals Progressing Toward Goals Assessment Summary Assessment Patient has made good progress toward goals, weakness right hip ab and ext, and SLS most difficult balance. No freezing during activity today . Anticipate discharge after next PT visit. Physical Therapy Plan Frequency and Duration Frequency of Treatment 2x/Week Duration of treatment (weeks) 12 Plan of Care Start Date 12/10/24 Plan of Care End Date 03/12/25 Next Visit Focus/Plan Next Note Type Treatment Note Next Visit Plan Continue to progress balance and challenged activities, LE and core strengthening continue step-outs all directions to challenge functional balance. Assure has pictures for all HEP
--- NOTE | 2025-02-16 15:13 | PT.OTN ---
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 Visit Start Time 13:03 Visit Stop Time 13:46 Visit Number 17 Number of E [employer] Visits 1 Evaluation Information Evaluation Date 12/10/24 Precautions Precautions fall risk PT-OP-B Current Condition Start: 12/09/24 15:44 Freq: Status: Active Protocol: Document 02/02/25 11:29 SAK (Rec: 02/02/25 12:17 SAK Laptop) Current Condition History of Current Condition Onset Date 3+ yrs Current Complaints difficulty with walking History of Current Condition Feels like she is brain damaged, wobbles, has to think about it. has had every test known to man including pulmonology neurologist, blood testing. Found peripheral neuropathy, nothing else. Had psychotherapy, takes Lions Chirag. Symptoms recently got worse again. Cleared for Parkinson's. Had decreased Paxil, but wasn't feeling well , so increased to 10 mg. In house ok, most indoor spaces ok but tentative. Not dizzy, feels weaker than should. Has fallen 2 times; September 26 most recent, both times tripped over something she didn't see and was multitasking. Sometimes uses cane. Does water aerobics and , hasn't been good with other exercising. Has to do constant cues during walking what to do, stopped walking outside. States remembering getting wrong vaccine (3rd shingles shot instead of pneumonia shot), unsure if that may have caused it. Treatment Goals Patient/Caregiver Goals Needs some tools for getting past Freezing PT-OP-C Subjective Start: 12/09/24 15:44 Freq: Status: Active Protocol: Document 02/16/25 13:00 AB (Rec: 02/16/25 15:12 AB Laptop) OP-PT Subjective Patient Comments Patient Comments Patient reports she is better. Patient reports she feels steadier walking outside, but standing on one leg continues to be difficult. Patient reports she needs no copies of exercises or any more bands. PT-OP-D Balance Start: 12/09/24 15:44 Freq: Status: Active Protocol: Document 12/10/24 10:48 SAK (Rec: 12/10/24 15:40 [facility] [id number]) OP-PT Balance Assessment Sitting Balance Static Sitting Balance Ability Normal Dynamic Sitting Balance Ability Good Miller Balance Assessment Evaluation Sitting to Standing Ability Independent w/Hands Unsupported Stance Supervision- 2 minutes Sitting Unsupported, Feet on Floor Safely- 2 minutes Standing to Sitting Ability Assist, Use Legs on Chair Transfer Ability Safely, Hand Use Unsupported Stance- Eyes Closed Supervision, 10 seconds Unsupported Stance- Eyes Open Independent, 1 minute Reaching Forward Standing Safely, 5 inches Pick- Up Object From Floor Supervision Look Behind Shoulder - Standing Shifts Weight Unilateral Turning 360 Degrees Turns , < 4 secs Unsupported Stance, Alternating Feet on (I)- 8 Steps in > 20 secs Stair Unsupported Tandem Stance Balance Lost- Step/Stand Unilateral Leg Stance Unable,assist to not fall Total Score Miller Total Score (out of 56 points) 37 Diaz Fall Scale Copyright Permission PT-OP-E Functional Tests Start: 12/09/24 15:44 Freq: Status: Active Protocol: Document 12/10/24 10:48 SAK (Rec: 12/10/24 15:40 [facility] [id number]) Functional Tests Dynamic Gait Index (DGI) Score 07/16 Timed Up and Go (TUG) Score 18s PT-OP-G Mobility & Gait Start: 12/09/24 15:44 Freq: Status: Active Protocol: Document 12/10/24 10:47 SAK (Rec: 12/10/24 11:35 [facility] [id number]) OP Mobility Evaluation Transfers Sit to Stand knees together PT-OP-H Neuro Start: 12/09/24 15:44 Freq: Status: Active Protocol: Document 12/10/24 10:48 SAK (Rec: 12/10/24 15:40 [facility] [id number]) Sensation Evaluation Gross Sensation Gross Sensation WNL PT-OP-J Posture/Palpation/Skin Start: 12/09/24 15:44 Freq: Status: Active Protocol: Document 12/10/24 10:48 SAK (Rec: 12/10/24 15:40 [facility] [id number]) Posture Evaluation Position Standing Knee Posture (L) Genu Valgus,(R) Genu Valgus Ankle/Foot Posture (L) Pronated,(R) Pronated PT-OP-M Strength Start: 12/09/24 15:44 Freq: Status: Active Protocol: Document 12/10/24 10:48 SAK (Rec: 12/10/24 15:40 SAK [id number]) Hip Strength Hip Manual Muscle Testing Left Flexion (L2) 3+ Fair+ Extension (S1) 3- Fair- Abduction 4- Good- External Rotation 3+ Fair+ Internal Rotation 4- Good- Right Flexion (L2) 3+ Fair+ Extension (S1) 3- Fair- Abduction 3+ Fair+ External Rotation 3+ Fair+ Internal Rotation 4- Good- Knee Strength Knee Manual Muscle Testing dilip Flexion (S2) 4 Good Extension (L3) 4 Good Ankle/Foot Strength Ankle and Foot Manual Muscle Testing dilip Dorsiflexion (L4) 4 Good Plantarflexion (S1) 4 Good PT-OP-Q Treatments Start: 12/09/24 15:44 Freq: Status: Active Protocol: Document 02/16/25 13:00 AB (Rec: 02/16/25 15:12 AB Laptop) Therapeutic Exercises Sitting Exercises seated clam jesus alberto Sitting Exercise Name HEP Resistance L3 to HEP Reps/Minutes one min X 1 Comments Verbal cues Standing Exercises calf stretches on ARY Side bilateral Reps/Minutes 60 sec each then step throughs X 10 Comments verbal cues Forward, lat, back curtsy SL Reps/Minutes X 8 each LE Comments hands above bars, mirror for knee alignment calf stretches on BOSU Standing Exercise Name with UE support Side bilateral Reps/Minutes one minute hold gastroc, X 10 step through Comments verbal and visual cues monster walk Resistance level 4 band above knees Reps/Minutes 10feet X 3 fwd X 3 retro Comments hands above bars side stepping with band Standing Exercise Name with UE support Side bilateral Resistance level 4 above knees Reps/Minutes 10 feet left and right X 3 Neuro Re-Education Treatment Balance Activities Hurdles Reps/Duration 10 feet X 3 Comments CGA step up taps standing on foam Surface foam Equipment 6 inch step Reps/Duration X10 each LE Comments CGA tandem stance Details tandem stepping Reps/Duration 10 feet X 6 CGA initiates with hands above bars SLS Details with intermittent finger tip support, Reps/Duration 3 min then one min with out UE use Comments Alternating LE use foam Details balloon Volley Surface on foam in mod tandem Reps/Duration 4 min Comments CGA hands above bars, occasional touch PT-OP-T Assessment and Plan Start: 12/09/24 15:44 Freq: Status: Active Protocol: Document 02/16/25 13:00 AB (Rec: 02/16/25 15:12 AB Laptop) Physical Therapy Assessment Goals Four Impairment History of falls with Activities specific Balance confidence Scale 52.5 Snf Goal (LTG) Improve score to at least 75 as measure of patient improved balance confidence 01/19/25; no recent falls. ABC score 58% 02/11/25: no recent falls, ABC score 65%, improved LTG Duration 03/12/25 Three Impairment Gait dysfunction with DGI score 10 Retail Management Keyholder Goal (LTG) Improve gait as evidenced by no falls, improvement in DGI score to at least 17 as measure of decreased fall risk 01/19/25: no recent falls. DGI improved to 1402/11/25: DGI improved to 16/24 LTG Duration 03/12/25 Two Impairment Balance dysfunction with Miller Balance SCore 37/56 and TUG 18 sec Snf Goal (LTG) Improve Miller Balance score to at least 45/56 and TUG to no greater than 10 sec as measures of improved functional balance and safety 01/19/25: TUG 15 sec, Miller 41/ 56 02/11/25: TUG 13 sec, Miller 44/ 56 LTG Duration 03/12/25 One Impairment LE weakness Short Term Goal (STG) Patient to be instructed in progressive individualized HEP for purposes of addressing impairments in LE strength 01/19/25: goal met STG Duration goal met Retail Management Keyholder Goal (LTG) Patient to be independent and compliant in HEP and demonstrate improvements in LE strength to at least 4+/5 throughout 02/11/25: improved but not fully met LTG Duration 03/12/25 Assessment Summary Assessment Patient Continues to have limited SLS. Patient reports has hand outs and bands needed to continue HEP. Physical Therapy Plan Frequency and Duration Frequency of Treatment 2x/Week Duration of treatment (weeks) 12 Plan of Care Start Date 12/10/24 Plan of Care End Date 03/12/25 Next Visit Focus/Plan Next Note Type Discharge Summary Next Visit Plan Patient has HEP and Bands, as per patient plan will not return to PT due to trip planned and will not be back prior to recert.
--- NOTE | 2025-03-22 09:06 | PT.OPDS ---
Current Diagnoses Unspecified abnormalities of gait and mobility (02/16/25) Visit Care Team Role Provider Type Stalin Mccarthy MD Attending Provider Physician Primary Care Provider Referring Provider Specialty: Family Practice Address: [facility], [place], [address] Email: [email or web address] Visit Number Visit Number 17 Discharge Summary PT-OP-B Current Condition Start: 12/09/24 15:44 Freq: Status: Active Protocol: Document 02/02/25 11:29 SAK (Rec: 02/02/25 12:17 SAK Laptop) Current Condition History of Current Condition Onset Date 3+ yrs Current Complaints difficulty with walking History of Current Feels like she is brain damaged, wobbles, has to think Condition about it. has had every test known to man including pulmonology neurologist, blood testing. Found peripheral neuropathy, nothing else. Had psychotherapy , takes Lions Chirag. Symptoms recently got worse again. Cleared for Parkinson's. Had decreased Paxil, but wasn't feeling well, so increased to 10 mg. In house ok, most indoor spaces ok but tentative. Not dizzy, feels weaker than should. Has fallen 2 times; September 26 most recent, both times tripped over something she didn't see and was multitasking. Sometimes uses cane. Does water aerobics and , hasn't been good with other exercising. Has to do constant cues during walking what to do, stopped walking outside. States remembering getting wrong vaccine (3rd shingles shot instead of pneumonia shot), unsure if that may have caused it. Treatment Goals Patient/Caregiver Needs some tools for getting past Freezing Goals PT-OP-C Subjective Start: 12/09/24 15:44 Freq: Status: Active Protocol: Document 02/16/25 13:00 AB (Rec: 02/16/25 15:12 AB Laptop) OP-PT Subjective Patient Comments Patient Comments Patient reports she is better. Patient reports she feels steadier walking outside, but standing on one leg continues to be difficult. Patient reports she needs no copies of exercises or any more bands. PT-OP-D Balance Start: 12/09/24 15:44 Freq: Status: Active Protocol: Document 12/10/24 10:48 SAK (Rec: 12/10/24 15:40 [facility] [id number]) OP-PT Balance Assessment Sitting Balance Static Sitting Normal Balance Ability Dynamic Sitting Good Balance Ability Miller Balance Assessment Evaluation Sitting to Standing Independent w/Hands Ability Unsupported Stance Supervision- 2 minutes Sitting Unsupported, Safely- 2 minutes Feet on Floor Standing to Sitting Assist, Use Legs on Chair Ability Transfer Ability Safely, Hand Use Unsupported Stance- Supervision, 10 seconds Eyes Closed Unsupported Stance- Independent, 1 minute Eyes Open Reaching Forward Safely, 5 inches Standing Pick- Up Object From Supervision Floor Look Behind Shoulder Shifts Weight Unilateral - Standing Turning 360 Degrees Turns , < 4 secs Unsupported Stance, (I)- 8 Steps in > 20 secs Alternating Feet on Stair Unsupported Tandem Balance Lost- Step/Stand Stance Unilateral Leg Unable,assist to not fall Stance Total Score Miller Total Score ( 37 out of 56 points) Diaz Fall Scale Copyright Permission PT-OP-E Functional Tests Start: 12/09/24 15:44 Freq: Status: Active Protocol: Document 12/10/24 10:48 SAK (Rec: 12/10/24 15:40 [facility] [id number]) Functional Tests Dynamic Gait Index (DGI) Score 07/16 Timed Up and Go (TUG) Score 18s PT-OP-G Mobility & Gait Start: 12/09/24 15:44 Freq: Status: Active Protocol: Document 12/10/24 10:47 SAK (Rec: 12/10/24 11:35 [facility] [id number]) OP Mobility Evaluation Transfers Sit to Stand knees together PT-OP-H Neuro Start: 12/09/24 15:44 Freq: Status: Active Protocol: Document 12/10/24 10:48 SAK (Rec: 12/10/24 15:40 [facility] [id number]) Sensation Evaluation Gross Sensation Gross Sensation WNL PT-OP-J Posture/Palpation/Skin Start: 12/09/24 15:44 Freq: Status: Active Protocol: Document 12/10/24 10:48 SAK (Rec: 12/10/24 15:40 [facility] [id number]) Posture Evaluation Position Standing Knee Posture (L) Genu Valgus,(R) Genu Valgus Ankle/Foot Posture (L) Pronated,(R) Pronated PT-OP-M Strength Start: 12/09/24 15:44 Freq: Status: Active Protocol: Document 12/10/24 10:48 SAK (Rec: 12/10/24 15:40 SAK [id number]) Hip Strength Hip Manual Muscle Testing Left Flexion (L2) 3+ Fair+ Extension (S1) 3- Fair- Abduction 4- Good- External Rotation 3+ Fair+ Internal Rotation 4- Good- Right Flexion (L2) 3+ Fair+ Extension (S1) 3- Fair- Abduction 3+ Fair+ External Rotation 3+ Fair+ Internal Rotation 4- Good- Knee Strength Knee Manual Muscle Testing dilip Flexion (S2) 4 Good Extension (L3) 4 Good Ankle/Foot Strength Ankle and Foot Manual Muscle Testing dilip Dorsiflexion (L4) 4 Good Plantarflexion (S1) 4 Good PT-OP-T Assessment and Plan Start: 12/09/24 15:44 Freq: Status: Active Protocol: Document 02/16/25 13:00 AB (Rec: 02/16/25 15:12 AB Laptop) Physical Therapy Assessment Goals Four Impairment History of falls with Activities specific Balance confidence Scale 52.5 Longterm Goal (LTG) Improve score to at least 75 as measure of patient improved balance confidence 01/19/25; no recent falls. ABC score 58% 02/11/25: no recent falls, ABC score 65%, improved LTG Duration 03/12/25 Three Impairment Gait dysfunction with DGI score 10/24 Pound Attendant Goal (LTG) Improve gait as evidenced by no falls, improvement in DGI score to at least 17 as measure of decreased fall risk 01/19/25: no recent falls. DGI improved to 14/24 02/11/25: DGI improved to 16/24 LTG Duration 03/12/25 Two Impairment Balance dysfunction with Miller Balance SCore 37/56 and TUG 18 sec Pound Attendant Goal (LTG) Improve Miller Balance score to at least 45/56 and TUG to no greater than 10 sec as measures of improved functional balance and safety 01/19/25: TUG 15 sec, Miller 41/56 02/11/25: TUG 13 sec, Miller 44/56 LTG Duration 03/12/25 One Impairment LE weakness Short Term Goal (STG Patient to be instructed in progressive individualized ) HEP for purposes of addressing impairments in LE strength 01/19/25: goal met STG Duration goal met Longterm Goal (LTG) Patient to be independent and compliant in HEP and demonstrate improvements in LE strength to at least 4+/ 5 throughout 02/11/25: improved but not fully met LTG Duration 03/12/25 Assessment Summary Assessment Patient Continues to have limited SLS. Patient reports has hand outs and bands needed to continue HEP. Physical Therapy Plan Frequency and Duration Frequency of 2x/Week Treatment Duration of 12 treatment (weeks) Plan of Care Start 12/10/24 Date Plan of Care End 03/12/25 Date Next Visit Focus/Plan Next Note Type Discharge Summary Next Visit Plan Patient has HEP and Bands, as per patient plan will not return to PT due to trip planned and will not be back prior to recert.
== END 2025-03-29 10:12 | disposition home or self-care (01) ==
LOC: PHYS 13:00
PROVIDERS: PCP Family Medicine; Referring Provider Family Medicine; Visit Provider Family Medicine
DX: R26.9 Unspecified abnormalities of gait and mobility (principal)
CPT/HCPCS: 97110; 97112; 97116; 97162; 97530; 97535